=== PATIENT | female | born 1955 | race Caucasian/White ===

== ENCOUNTER 2016-09-16 07:14 | Inpatient (IN) | payer OTHER ==
[~2016-09-16] VITALS: Ht 152.4 cm; Wt 51.0 kg
[2016-09-16] VITALS (15 sets, daily range): BP systolic 98–139; BP diastolic 55–83; PULSE 86–114; RESP 12–19; O2SAT 98–100
[~2016-09-16 07:14] MED LIST: ACET325C PO; CALC200T6 PO; Insulin; LOV60 SUBQ; MAGN400T4 PO; POLY17PO6 PO; POTA20TA16 PO; SODI650T PO; Tramadol PO
--- NOTE | 2016-09-16 08:15 | ED.REPORT ---
HPI-General Illness Date of Service Sep 16, 2016 ED Provider: Patricio Aden MD 61 y/o female with a hx of HTN, DM and GI perforation (with colostomy bag) presents to the ED complaining of full body edema, onset 2 days ago. She had an appointment at [address]Mark Sampson for antibiotic infusion due to blood and liver infection. She has been seeing Dr. Sampson for the past 2 days. Associated sx include myalgia and mild vomiting. Currently, the pain is mostly in her lower extremities. The pt is unable to walk due to her sx and was carried into the hospital by her . She denies diarrhea, chest pain and fever. She has extremely complex medical history which is largely obtained from Dr. Sampson's consultation note from 2 days ago. She presented about a year ago with a broken hip and had a repair done. She ended up with MRSA septicemia, bowel rupture with subsequent colostomy felt to be secondary to constipation. She also had portal vein thrombosis for which she is on low molecular weight heparin. She also has severe inability to move about as reported by her . This along with severe edema has increased dramatically over the past few days. They are also very upset about the care they received at [facility] and are vehemently disinterested in returning there. The pt recently began using insulin and was asked to stop taking BP medications. Nursing Notes Stated Complaint: SWELLING/FINGERS/FEET Chief Complaint: General Complaint Nursing Notes Reviewed: Yes Allergies: Coded Allergies: No Known Drug Allergies (Verified Allergy, Unknown, 09/14/16) Scheduled Calcium Citrate (Calcium Citrate) 200 Mg Tablet 200 MG PO BID Enoxaparin (Lovenox) 60 Mg/0.6 Ml Syringe 60 MG SUBQ BID Magnesium Oxide (Magnesium Oxide) 400 Mg Tablet 400 MG PO TID Potassium Chloride (Potassium Chloride) 20 Meq Tab.er.prt 20 MEQ PO DAILY TAKE WITH FOOD Sodium Bicarbonate (Sodium Bicarbonate) 650 Mg Tablet 650 MG PO TID Scheduled PRN ([Tramadol ]) 50 MG PO PRN For Pain Acetaminophen (Acetaminophen) 325 Mg Capsule 650 MG PO q4 PRN PRN For Pain Miscellaneous Medications ([Insulin ]) Polyethylene Glycol 3350 (Miralax) 17 Gm Powd.pack 17 GM PO General Time Seen by MD: 07:33 Chief Complaint Other (full body edema) Hx Obtained From: Patient Arrived By: Walk-in Sudden in Onset?: Yes Onset Occurred: 2 days ago Symptom Duration: Since onset Location: : Leg left: Leg right Quality: Painful Radiation: : Does not radiate Severity: Current: Moderate Severity: Maximum: Moderate Recent Healthcare: No recent doctor visit Similar Sx Previous: No Past Medical History Past Medical History GI perforation (colostomy bag) Reports: Diabetes mellitus, Hypertension Past Surgical History none reported Smoking History Former Smoker Social History Alcohol Use: Denies alcohol use Drug Use: THC (before bed) Other Social History: Ambulatory Status Independent Review of Systems Reports:unable to walk Full Review of Systems Constitutional: Denies: Fever Cardiovascular: Reports: Edema, Denies: Chest pain GI: Reports: Vomiting, Denies: Diarrhea Musculoskeletal: Reports: Extremity pain (Lower extremities ), Myalgia Complete sys rev & neg: except as marked. Physical Exam Vital Signs Vital Signs Date Time Temp Pulse Resp B/P Pulse Ox O2 Delivery O2 Flow Rate FiO2 09/16/16 10:00 90 13 115/72 09/16/16 09:14 98 17 120/66 Room Air 09/16/16 07:16 36.2 114 14 103/74 100 Room Air Initial VS: Reviewed Head / Eyes: Atraumatic, Normocephalic Neck: Full range of motion Extremities: Vascular intact, Neuro intact, No swelling, No tenderness Skin: Warm, Dry, No cyanosis Neurologic: Alert, Oriented, Nonfocal General/Constitutional: Awake, Alert, Cooperative Appearance / Presentation: Positive: Cachectic PICC line in the right medial upper arm. Respiratory / Chest: Atraumatic, Breath sounds NL, Breath sounds = bilat, No respiratory distress, No rales, No rhonchi, No wheezing Cardiovascular: Heart rate NL, Regular rhythm, No gallop, No rubs Heart Sounds / Murmur: Positive: Murmur present... (II/) Profound peripheral edema in hands and legs up to the thighs. Abdomen: Atraumatic, Soft, Non-tender, No guarding, No rebound Rectum / Perineum: Atraumatic Guaiac negative. Interpretation & Diagnostics Lab Results Interpretation Result Diagram: 09/16/16 1155 09/16/16 0750 Test 09/16/16 07:50 09/16/16 08:51 09/16/16 09:25 White Blood Count 8.7th/mm3 (3.8-10.1) Red Blood Count 2.02mil/mm3 (3.90-5.20) Mean Corpuscular Volume 107.4fL (81-100) Mean Corpuscular Hemoglobin 32.2pg (27.0-35.0) Mean Corpuscular Hemoglobin Concent 30.0% (32.0-37.0) Red Cell Distribution Width 17.6% (12.3-15.4) Platelet Count 545bil/L (150-400) Neutrophils (%) (Auto) 67.6% (40-74) Lymphocytes (%) (Auto) 23.8% (14-46) Monocytes (%) (Auto) 6.9% (4-12) Eosinophils (%) (Auto) 0.3% (0-5) Basophils (%) (Auto) 0.6% (0-3) Hold Purple Top Tube Received (Received) Prothrombin Time 12.2sec (8.1-12.5) Prothromb Time International Ratio 1.14ratio Hold Blue Top Tube Received (Received) Sodium Level 134mEq/L (134-144) Potassium Level 3.7mEq/L (3.5-5.2) Chloride Level 97mEq/L (97-108) Carbon Dioxide Level 16mmol/L (18-29) Blood Urea Nitrogen 10mg/dL (8-27) Creatinine 0.97mg/dL (0.57-1.00) Estimat Glomerular Filtration Rate 83mL/min (>59) Glucose Level 195mg/dL (60-99) Calcium Level 6.2mg/dL (8.5-10.1) Magnesium Level 1.4mg/dL (1.6-2.6) Iron Level 49ug/dL (35-150) Total Iron Binding Capacity 66ug/dL (250-450) Percent Iron Saturation 74%sat (15-50) Unsaturated Iron Binding 17.2ug/dL Total Bilirubin 0.2mg/dL (0.0-1.2) Aspartate Amino Transf (AST/SGOT) 25U/L (0-50) Alanine Aminotransferase (ALT/SGPT) 11U/L (0-32) Alkaline Phosphatase 270U/L (25-165) Troponin T 0.077ug/L (0.0-0.011) Pro-B-Type Natriuretic Peptide 4332pg/mL (0-287) Total Protein 4.3g/dL (6.4-8.4) Albumin 1.3g/dL (3.4-5.0) Procalcitonin 18.34ng/mL (0.00-0.08) Hold [place] Top Tube Received (Received) Hold [place] Top Tube Received (Received) Digoxin Level 0.3nG/mL (0.9-2.0) Urine Color Yellow (YELLOW) Urine Appearance Hazy (CLEAR,HAZY) Urine pH 6.5 (5.0-8.0) Urine Specific [place] 1.010 (1.003-1.035) Urine Protein 30mg/dL (NEG,TRACE) Urine Glucose (UA) Negativemg/dL (NEGATIVE) Urine Ketones Negativemg/dL (NEGATIVE) Urine Occult Blood Negative (NEGATIVE) Urine Nitrite Negative (NEGATIVE) Urine Bilirubin Negative (NEGATIVE) Urine Urobilinogen Normalmg/dL (NORMAL) Urine Leukocyte Esterase Small (NEGATIVE) Urine RBC 0-2/hpf (0-2) Urine WBC 11-50/hpf (0-5) Urine Epithelial Cells Occasional/hpf (NONE-MOD) Urine Crystals None seen (NONE SEEN) Urine Bacteria None/hpf (NONE-FEW) Urine Hyaline Casts None/lpf (NONE) Urine Granular Casts None seen (NONE SEEN) Urine Waxy Casts None seen (NONE SEEN) Urine Red Blood Cell Casts None seen (NONE SEEN) Urine White Blood Cell Casts None seen (NONE SEEN) Urine Mucus None seen (None Seen) Urine Trichomonas None seen (NONE SEEN) Urine Yeast Moderate (NONE SEEN) Urinalysis Comment None Urine Culture Reflexed Indicated Hold Red Top Tube Received (Received) ECG Interpretation ECG Interpretation: NSR. Jackelyn 97. Low voltage, extremity and recordial leads Prolonged QT interval Time: 08:38 Interpreted by: ED physician X-Ray Chest Interpretation Chest Xray Interpretation: IMPRESSION: 1. Continued small right-sided pleural effusion and mild atelectasis. Superimposed pneumonia is difficult to exclude. 2. Unchanged right-sided PICC line catheter. Dictated by: Brendan Marley M.D. on 09/16/2016 at 8:09 Approved by: Brendan Marley M.D. on 09/16/2016 at 8:12 View: Portable, 1 view Interpretation / Wet Read by: Interpret - Radiologist Re-Eval/Medical Decision Time of Eval: 09:28 Re-Evaluation/Progress Note: Rechecked pt. Discussed lab results, imaging results, diagnosis and plan to admit. The pt understands and agrees with the plan. All questions answered. Consultation #1: Referral / Consult Name: Gonzalez Sampson MD Call Returned at: 09:26 Note: Dr. Sampson suggested checking the details in his note on the pt. Consultation #2: Referral / Consult Name: Mariya Mock DO Consulted With: Hospitalist Call Returned at: 10:10 [place] Worker: Will see patient, Agrees with eval, Agrees with plan, Accepts admit Counseled Regarding: Diagnosis, Lab results, Need for admission Discharge & Departure Primary Impression: Severe anemia Additional Impressions: Anasarca Hypotension Disposition: ADMITTED TO HOSPITAL Discharge Condition All VS Reviewed: Yes Referrals: [facility] Gonzalez Sampson MD Scribe Attestation Portions of this note were transcribed by Joellen Mathias. I, , personally performed the history, physical exam and medical decision-making;I reviewed and confirmed the accuracy of the information in the transcribed note. Signed by Tiburcio Montoya. 09/16/16 10:11 copies to: [facility]; Gonzalez Sampson MD, Kirk H MD Sep 16, 2016 08:15 Joellen Mathias Sep 16, 2016 08:31
[2016-09-16] MEDS ORDERED: DAPTOmycin Inj 500 MG in 0.9% Sodium Chloride 50 ML IV ONE (08:30)
[2016-09-16] MEDS ORDERED: Ertapenem Inj 1,000 MG in 0.9% Sodium Chloride 50 ML IV ONE (08:30)
[2016-09-16 08:37] LABS: BASOPHILS % (AUTO) 0.6 % (0-3); EOSINOPHILS % (AUTO) 0.3 % (0-5); MONOCYTES % (AUTO) 6.9 % (4-12); Mean Corpuscular Hemoglobin 32.2 pg (27.0-35.0); Mean Corpuscular Volume 107.4 fL (81-100); NEUTROPHILS % (AUTO) 67.6 % (40-74); Platelet Count 545 bil/L (150-400)
[2016-09-16 08:39] LABS: INR 1.14 ratio
[2016-09-16 09:09] LABS: Magnesium 1.4 mg/dL (1.6-2.6)
[2016-09-16 09:12] LABS: TROPONIN T 0.077 ug/L (0.0-0.011)
--- NOTE | 2016-09-16 09:13 | DRSVH ---
PROCEDURE: X-RAY CHEST ONE VIEW, PORTABLE ([id number]) INDICATIONS: weakness TECHNIQUE: One view of the chest was acquired. COMPARISON: [facility], CR, XR CHEST 1VW (PORTABLE), 09/14/2016, 11:25. FINDINGS: Surgical changes and devices: There is a right-sided PICC line catheter identified with tip overlying the mid superior vena cava. Lungs and pleura: Bibasilar opacity is identified at results in blunting of the costophrenic angle an d partially obscures the diaphragm. The diaphragm probably is elevated. This appearance is similar to the prior exam. Otherwise, the aeration of the lungs is unchanged. There is no pneumothorax. Mediastinum: Mediastinal contours appear normal. Heart size is normal. Bones and chest wall: No suspicious bony lesions. Overlying soft tissues appear unremarkable. IMPRESSION: 1. Continued small right-sided pleural effusion and mild atelectasis. Superimposed pneumonia is dif ficult to exclude. 2. Unchanged right-sided PICC line catheter. Dictated by: Brendan Marley M.D. on 09/16/2016 at 8:09 Approved by: Brendan Marley M.D. on 09/16/2016 at 8:12
[2016-09-16 09:21] LABS: APPEARANCE,URINE HAZY (CLEAR,HAZY); COLOR,URINE YELLOW (YELLOW); OCCULT BLOOD,URINE NEGATIVE (NEGATIVE); PH,URINE 6.5 (5.0-8.0); UROBILINOGEN,URINE NORMAL (NORMAL)
[2016-09-16 09:22] LABS: YEAST,URINE MODERATE (NONE SEEN)
[2016-09-16] MEDS ORDERED: Alum-Mag Hydrox-Simeth 30 mL Suspension PO PRN ×2 (11:05→11:40)
[2016-09-16] MEDS ORDERED: Ondansetron 2 mg/mL 2 mL Inj IVPUSH PRN (11:05)
[2016-09-16] MEDS ORDERED: Polyethylene Glycol (PEG) 17 Gm Powder PO PRN (11:40)
[2016-09-16] MEDS ORDERED: Albumin 25% 50 GM in IV Premix 1 EACH IV ONE (11:40)
[2016-09-16] MEDS ORDERED: Magnesium Sulf 4 Gm/100 mL H2O 4 GM in IV Premix 1 EACH IV ONE (11:45)
[2016-09-16] MEDS ORDERED: Calcium GLUCO 10% (Gm) Inj 1 GM in 0.9% Sodium Chloride 50 ML IV ONE (11:45)
[2016-09-16 12:03] LABS: Unsaturated Iron Binding 17.2 ug/dL
[2016-09-16] MEDS ORDERED: Sodium Chloride LOK Flush 10 mL Syringe IVFLUSH PRN (12:20)
--- NOTE | 2016-09-16 12:30 | NUR ---
Admission note Report received from ED RN. Patient arrived to room 2030 via stretcher. Pt oriented to room and use of call light. Policies and procedure explained. Patient verbalized understanding. Patient alert, oriented to person, place and time. Sheldon patent draining clear yellow urine. Assessment performed, vitals charted by ELECTRICIAN SECOND. Awaiting PRBC at this time for blood transfusion. Ongoing care.
--- NOTE | 2016-09-16 13:04 | PCM.HPMED ---
Subjective Date of Service Sep 16, 2016 Primary Provider: Admitting Physician: Mariya Mock DO Primary Care Physician: Song Attending Physician: Mariya Mock DO Chief Complaint: Weakness and anasarca History of Present Illness: 61-year-old female who is recently discharged from [facility] 2 days ago presents to the emergency department due to increased swelling in her lower extremities and worsening weakness has been persistent since discharge. See medical history for further information. Patient has an extremely complicated course as she has had 2 stays at [facility]. Initially started in the fall of 2015 when the patient had a fall fractured her right hip. She is not discharged and then readmitted in March after she suffered colonic rupture second obstipation likely due from pain management. Patient underwent colectomy and new ostomy and remained in the hospital for 3 weeks including a prolonged stay in the ICU on a ventilator. At that time she required TPN and developed acute kidney injury. In August the patient again presented to [facility] with increased abdominal pain and vomiting was found to have an MRSA history male with sepsis. She underwent complete workup including SANDI which was negative for valvular involvement, however it was noted that she has intrahepatic abscess is likely due to the MRSA as well as questionable pancreatic abscesses. 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 Since this admission she has been on Lovenox. That time she was also diagnosed with a left 6 cm renal mass which has yet to be worked up. On last discharge the patient was able to stand and now complains that she is unable to lift her legs against gravity. Her swelling has increased bilaterally but she does not feel that her abdomen is involved. She denies ongoing fever, chills, chest pain, dizziness, nausea, vomiting, dysuria, or changes in bowel habits. She has had ongoing shortness of breath with exertion. She is able to reportedly lay flat. Abdominal pain is not a complaint today. Patient also denies hematochezia, melena or hematemesis. In the ED the patient was found to be severely anemic at 6.5 and repeat 4 hours later resulted at 5.8. Patient's CBC shows a macrocytic anemia with thrombocytosis. Patient's CMP revealed bicarbonate of 16, glucose 195,, corrected calcium above 8, magnesium 1.4, alkaline phosphatase elevated at 270, [place] elevated at 18.4, and albumin 1.3. Patient also had a lactic acid of 4.0 on admit. Repeat without fluids reveal a lactic acid 3.2 Review of Systems: Complete review of systems performed; pertinent positives and negatives per history of present illness Allergies Coded Allergies: No Known Drug Allergies (Verified Allergy, Unknown, 09/14/16) Home Medications Calcium citrate 200 mg tablets by mouth twice a day Lovenox 60 mg syringe subcutaneous twice a day Magnesium oxide 400 mg tablet by mouth 3 times a day Potassium chloride 20 mEq by mouth daily Sodium bicarbonate 650 mg by mouth 3 times a day Ertapenem daily through October 08 Daptomycin daily through October 08 PMH Fracture right hip Osteoporosis Hypertension Renal tubular acidosis Pancreatic pseudocyst Chronic renal insufficiency Rupture colon second to obstipation with colectomy and ostomy -Prolonged ICU stay in 3 week admission to [facility] -MRSA sepsis with negative SANDI -Liver and questionable pancreatic abscesses second MRSA versus polymicrobial bacteremia -Portal vein thrombosis, nonocclusive -Portal's clinic thrombosis, nonocclusive -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 -6 cm left renal mass, unknown etiology although questionable for malignancy -History of stress cardiomyopathy with improvement of LV function Surgical History Colectomy with ostomy Right hip pinning Family History Patient is adopted Social History Hx Alcohol Use: Yes (NONE SINCE ; 3 DRINKS A DAY PRIOR) Hx Substance Use: Yes (MARIJUANA TO SLEEP) Smoking Status: Former Smoker Living Arrangement: with Family Exam Vital Signs Vital Sign - Last Date Time Temp Pulse Resp B/P Pulse Ox O2 Delivery O2 Flow Rate FiO2 09/16/16 12:28 36.6 86 17 127/80 100 Room Air Exam General: Appears chronically ill HEENT: PERRLA, EOMI, no scleral injection, no conjunctival pallor, membranes dry Lymph: No lymphadenopathy Cardiac: Regular rate and rhythm, decreased auscultation, no murmurs Respiratory: CTA bilaterally. Abdomen: Secondary intention ulcer healing, ostomy is active and appropriate Extremities: Significant pitting edema up to the sacrum (anasarca); lower extremity pulses are not palpable but limbs warm; radial pulses intact Psychiatric: Appropriate mood and affect Neuro: Sensation is intact throughout, significant weakness and lower extremities, CN II through XII intact Skin: Taut and the lower extremities, thin throughout Lab and Diagnostics Result Diagram: 09/16/16 1155 09/16/16 0750 X-Rays, CTs and MRIs Chest x-ray IMPRESSION: 1. Continued small right-sided pleural effusion and mild atelectasis. Superimposed pneumonia is difficult to exclude. 2. Unchanged right-sided PICC line catheter. Dictated by: Brendan Marley M.D. on 09/16/2016 at 8:09 12-lead ECG EKG is low-voltage, rate in the 80s, QTC is 665 Assessment & Plan 61-year-old female with extremely complicated course who presents emergency department with severe anemia of 6.5 with no obvious source of bleeding, as well as severe nutrient deficiency and lactic acidosis. Patient was discharged on Lovenox but did not refill (3 days off lovenox) Acute blood loss anemia with macrocytosis and a mild elevated troponin; present admission; ongoing -Patient was discharged 2 days ago presenting with a macrocytic anemia with hemoglobin of 6.5; elevated troponin likely due to recent tachycardia with inadequate oxygen delivery -Unknown source at this time with a questionable GI bleed; however, patient off Lovenox for 3 days; hold lovenox at this point -Reticulocyte count was 7.8 indicating that she is responding to this anemia, ruling out bone marrow suppression -Bilirubin normal, will check haptoglobin and smear to rule out hemolysis -Iron studies pending -Start patient on Protonix 40 mg twice a day -Ordered blood transfusion; blood had to be shipped up from [place] -Hemoccult -Will consult GI if trend continues Anasarca secondary to protein deficiency/malnutrition; present on admission; ongoing -Patient presents with edema up to her sacrum with sparing of the abdomen; albumin of 1.3 on admission -With sever hx of clotting, worrisome for bilateral DVT -Plans currently to await blood transfusion -50 mg albumin IV; 25 mg IV 4 times a day -Diuresis after patient has received blood and is more stable Subacute liver abscesses; present on admission; ongoing -patient had hepatic abscesses following MRSA bacteremia. -Dr. Sampson is treating these with daptomycin and ertapenem outpatient infusion -Patient's procalcitonin still around 18 -Will consult Dr. Sampson -Continue IV antibiotics per ID Left renal mass with reported capsule invasion; present on admission; ongoing -Diagnosed at [facility], however, unable to find biopsy results -Patient also had numerous thromboses and was placed on Lovenox, likely due to this mass -US ordered for assessment here -Consulted urology and heme; appreciate their recommendations -More information in records from [facility] of portal, mesenteric, and splenic vein thrombosis -Will continue Lovenox for the current time due to the severity of her prior thrombosis -Prothrombotic state likely second to renal cell carcinoma of the kidney -Consulting Heme/onc Anion gap acidosis with elevated lactate; present admission; ongoing -Anion gap of 22 on admission with lactic acid of 4; patient also has a RTA -Awaiting blood transfusions -Following transfusions will assess fluid balance -Recheck tomorrow Hypomagnesemia; present admission; ongoing -Replacement with 4 g of mag sulfate -Check an a.m. Right Pleural effusion; present admission; ongoing -Etiology unclear at this time; no known recent history of pneumonia; does have hepatic abscesses -Ultrasound assessment ordered for possible thoracentesis -Repeat CXR tomorrow morning Diabetes type II; present admission; ongoing -Patient does not appear to be on any medications outpatient -A1c checked -Patient placed on low correctional; we will reevaluate and had basal tomorrow Chronic Severe protein-calorie Malnutrition; present admission; ongoing -Patient has been severely ill for 9 months at one point was on TPN -BMI > 16, however patient with anasarca; obvious underlying severe nutritional deficiency -Dietitian consult requested -Continue albumin infusion Healing abdominal wound from colectomy; present on admission; ongoing -Allowed healing through secondary from colectomy in March 2016 -Wound consult ordered Disposition: Patient is being admitted to the inpatient service with expected length of stay greater than 2 midnights due to severity of presentation, duration of treatment, and risk of adverse events Pain Evaluation: Adequate Pain Control VTE Prophylaxis Indicated: VTE on Admission Resuscitation Status: CPR: Attempt Resuscitation Attending Statement The patient was seen and examined together with Dr. Walden on 09/16/16 and I have added additional information to the note above. Jude Walden DO Sep 16, 2016 13:04 Mariya Mock DO Sep 19, 2016 18:20
[2016-09-16] MEDS ORDERED: Glucose 40% Oral Gel 15 Gm Tube PO PRN (13:55)
[2016-09-16] MEDS ORDERED: Albumin 25% 25 GM in IV Premix 1 EACH IV SCH (14:30)
--- NOTE | 2016-09-16 14:46 | PROG NOTE ---
[address] [address] PROGRESS NOTE PATIENT: HUNG JAMES : 1955 MR#: [id number] ADMIT: 09/16/2016 JOB ID: [id number] DATE: 09/16/16 INFECTIOUS DISEASE FOLLOW UP NOTE: REASON FOR FOLLOWUP HERE IN THE HOSPITAL: Progressive lower extremity edema, progressive weakness and malaise. INTERVAL HISTORY: Recall that this is a complex patient who I accepted in transfer as outpatient from [facility] in [place] so as to facilitate home IV antibiotics. The patient has an extremely complex medical history which I summarized in a long note that is available on [employer] from September 14. The short summary would be that this is a 61-year-old woman with a history of alcohol abuse and multiple medical problems, who suffered a ruptured colon in [place] in March and spent a long time in the hospital at [place] with ventilator dependent respiratory failure, renal injury and the need for multiple procedures. She was also found during this long admission to have a left renal mass which is probably malignant but she has declined evaluation of it beyond that. She also has decubitus ulcers and renal insufficiency. She is known to have renal tubular acidosis at baseline, which probably explains her anabolic acidosis noted on admission. 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 At the time I saw her two days ago for the first time in the [facility], the plan was to continue her on daptomycin and ertapenem as empiric therapy for these microabscesses through at least October 08 with weekly followup. She was also on Lovenox for the multiple intra-abdominal venous thromboses and I renewed the Lovenox at least short-term in the hopes that she would soon be able to find a primary care doctor in the [facility] where she resides who could take over her anticoagulation. Our plans were a bit inchoate when I saw her on Tuesday as she really has not lived in this area nor does she have any medical assets in this area but she was quite adamant that she wanted to transition from her care in [place] and move her care and her home north to the [facility]. Over the past 48 hours, the patient has become weaker and weaker according to the patient and her . Today, she was hardly able to even stand much less make it to the toilet and just collapsed. Because of this progressive weakness, he brought her to the ED where I was contacted and the decision was taken to admit the patient here. She declined any transfer attempt to [place] where she is well known. Obviously has a wide variety of consultants familiar with the case now and she states she has not had any fevers or chills in the last 48 hours. No significant change in mentation or headache. She has had a little bit of shortness of breath with exertion but not much. No notable abdominal pain. No bleeding from her nose, rectum or vagina. She notes she has had progressive lower extremity weakness as well as edema over the past several days. PHYSICAL EXAMINATION: Reveals an afebrile woman. Temp 36.6, pulse 87, respiratory rate 17, blood pressure 127/80, saturating 100% on room air this afternoon. She is awake and alert. Appears to be in mild distress. Examination of the sinuses reveals no notable abnormalities. The oral cavity is unremarkable. Conjunctivae are pale. Lungs relatively clear. Cardiac tones with systolic murmur as was noted previously. The abdomen is soft and nontender today. The abdominal wound which I noted to be about 4 x 2 cm on Tuesday, the 14 of September, has not changed. She has a colostomy, of course, secondary to her colon perf from back in March. Sheldon catheter was installed in the ED and that is new as she did not have one when I saw her in the outpatient arena. Her lower extremity edema is considerable, about 2+ to 3+ bilaterally and seems a bit worse than when I last saw her. Her extremities are rather pale-appearing but not ischemic per se. Her left arm has some beltrán on it which are well healed. Her right arm is bigger than the left and has a PICC line in it suggesting the possibility of a PICC associated clot. LABORATORIES: Include white count 8700, hematocrit 20. Her hematocrit was at 26 just two days ago suggesting a major blood loss somewhere. Lactic acid is 3.2. Urinalysis 11-50 white cells. Urine culture is pending. Chest x-ray is basically clear with some very minimal right-sided atelectasis perhaps. IMPRESSION: This is an incredibly complicated case of a patient with multiple underlying medical issues as outlined above. At this point, her main problem is weakness, electrolyte disorders and worsening lower extremity edema as well as a progressive drop in hematocrit. From an Infectious Disease point of view, I think we should continue with her daptomycin and ertapenem as was previously planned through October 08. Additional things to consider here would be wound management consult as well as Urology to evaluate her renal mass and an ultrasound of the right upper extremity to rule out a clot. RECOMMENDATIONS: 1. Daptomycin 500 once a day to continue through October 08. 2. Ertapenem 1 g once a day to continue through October 08. 3. An ultrasound right upper extremity, rule out clot. 4. I would consult wound management regarding the abdominal wound, Nephrology regarding what seems to be renal tubular acidosis and Urology for the renal mass. 5. The optimal management of the renal and mesenteric thrombosis use is unclear to me and I wonder whether Gastrointestinal and/or Heme-Onc should be involved for this. 6. This patient will need a primary care doctor and establish followup before she can be safely discharged as she has no health care providers really [facility] at this point.
[2016-09-16] MEDS ORDERED: PANT40TA3 PO (15:38)
[2016-09-16] MEDS ORDERED: ONDA-53 PO (15:44)
[2016-09-16] MEDS ORDERED: TRAM50TA2 PO (15:44)
[2016-09-16] MEDS ORDERED: MIRT15TA6 PO (15:45)
[2016-09-16] MEDS ORDERED: INSU100I SC (15:47)
--- NOTE | 2016-09-16 16:14 | NUR ---
IV Access unable to find vein large enough to place 2nd picc on left arm, 2 attempts made on a peripheral line but those were unsuccessful, Dr Walden notified
[2016-09-16] MEDS ORDERED: Heparin 5,000 Unit/mL Inj SUBQ SCH (16:30)
[2016-09-16] MEDS ORDERED: DAPT500V2 IV (16:40)
[2016-09-16] MEDS ORDERED: ERTA1VIA2 IV (16:40)
[2016-09-16] MEDS ORDERED: MULT-432 PO (16:44)
[2016-09-16] MEDS ORDERED: OMEP20CA11 PO (16:44)
[2016-09-16] MEDS ORDERED: SODI650T PO (16:44)
--- NOTE | 2016-09-16 16:44 | DRSVH ---
PROCEDURE: US VENOUS ARM DUPLEX, BILATERAL INDICATIONS: thrombus around R PICC; left assessment? TECHNIQUE: Real-time imaging, as well as color and pulse Doppler interrogation, was performed of both upper extr emity deep veins from the inferior neck to the antecubital fossa. COMPARISON: None. FINDINGS: Within the right arm, there is venous thrombosis present involving the axillary and one of the 2 brachial veins which is occlusive. Normal patency of the subclavian vein. Within the left arm, venous thrombosis is present within one of the two paired basilic veins. The ce phalic vein is not visualized. Normal patency of the subclavian vein. IMPRESSION: Occlusive thrombus present within the right and left upper extremities. Marciano Walden telephoned with the results by the paving foreman at 1624 hrs. 09/16/2016. Dictated by: Ben Everett [facility] Interpreted: Rody Welch MD on 09/16/2016 at 16:40 Transcribed by: MILY on 09/16/2016 at 16:44 Approved by: Rody Welch MD, PhD on 09/16/2016 at 16:46
--- NOTE | 2016-09-16 17:06 | DRSVH ---
PROCEDURE: US ABDOMEN INDICATIONS: pancreatic abscess/hepatic abscess/portal vein TECHNIQUE: Real-time scanning was performed of the abdominal and retroperitoneal organs, with image documentatio n. COMPARISON: None. FINDINGS: Liver length: 15.57 cm Gallbladder Wall Thickness: 3.80 mm CHD: 2.90 mm CBD: 4.10 mm Spleen length: 9.60 cm Right kidney length: 9.89 cm Left kidney length: 7.84 cm Aorta(Proximal): 1.96 cm Aorta(Mid): 1.85 cm Aorta(Distal): 1.76 cm Liver: Liver is diffusely increased in echogenicity. No focal hepatic abnormalities identified. No rmal hepatic size. Gallbladder: Gallbladder sludge is present gallbladder wall is thickened measuring 3.8 mm. Biliary ducts: Intrahepatic bile ducts are non-dilated. Extrahepatic bile duct caliber is normal. Normal is 6-7 mm or less in diameter, or 10 mm or less post-cholecystectomy. Pancreas: Visualized portions of the pancreas are sonographically normal. Spleen: Spleen is normal in size and homogeneous in echotexture. Kidneys: No hydronephrosis or nephrolithiasis. Solid, heterogeneous left lateral kidney mass is pre sent measuring roughly 47 mm. There is left renal cortical thinning. Aorta: Visualized aorta is normal in caliber at less than 3 cm. Iliacs: Proximal common iliac arteries are normal in caliber at less than 2.5 cm. IVC: Intrahepatic inferior vena cava is patent. Miscellaneous: No free abdominal fluid. Small right pleural effusion. IMPRESSION: 1. Increased hepatic echogenicity noted likely related to fatty infiltration of the liver but other s ources of hepatocellular disease cannot be excluded. Recommend clinical correlation. 2. Solid left renal mass suspicious for underlying neoplasm. Recommend renal protocol CT for further assessment. 3. Small right pleural effusion. 4. Gallbladder sludge with mild thickened gallbladder wall. Developing cholecystitis cannot be exclu ded. Correlate clinically. Dictated by: Ben Everett [facility]RA Interpreted: Rody Welch MD on 09/16/2016 at 17:01 Transcribed by: MILY on 09/16/2016 at 17:05 Approved by: Rody Welch MD, PhD on 09/16/2016 at 21:49
--- NOTE | 2016-09-16 17:19 | DRSVH ---
PROCEDURE: US VENOUS LEG DUPLEX BILATERAL INDICATIONS: DVT ; include iliacs and lower IVC TECHNIQUE: Real-time imaging, as well as color and pulse Doppler interrogation, were performed of the deep veins of both legs from the inguinal ligament to the popliteal fossa. COMPARISON: None. FINDINGS: The deep veins are normally compressible, and free of intraluminal thrombus. Color and pu lse Doppler demonstrate normal phasic intravascular flow. There is normal augmentation response to d istal compression maneuver. IMPRESSION: No DVT found bilaterally. Dictated by: Bryant Ramsey M.D. on 09/16/2016 at 17:17 Approved by: Bryant Ramsey M.D. on 09/16/2016 at 17:18
--- NOTE | 2016-09-16 17:27 | NUR ---
Admit nurse note Most of admission assessment is completed at the bedside with 's assistance. does most of the talking for pt. Her complex medical history was obtained from [facility] records. states they moved north to get a second opinion about pt. They also state they have opted out of cancer treatment or diagnosis until pt.'s health is more stable. states they have not given any insulin at home because they couldn't figure out the glucometer. MD notified and requested to order diabetes education. Pt. placed on contact isolation for hx MRSA sepsis this year. Pt. to be asked about safety at home when she is alone in the room. Advance directives information provided to pt. and . Med rec completed based on med bottles, erx and list from [facility]. These are verified with and patient. states he will bring all the pill bottles back home manuela. Report given to Emily Yip and psychiatric social worker.
--- NOTE | 2016-09-16 17:35 | PCM.ADCARE ---
Advance Care Planning Note Plan: Purpose of encounter: Goals of care Parties in attendance: The patient and her Karthik Diagnosis: Acute blood loss anemia Anasarca Renal cell carcinoma Renal tubular acidosis Metabolic anion gap acidosis Type II diabetes Wound secondary to post colectomy procedure Decisional capacity: Good Plan: The patient is aware of the current diagnosis and would like to continue to be full code. The patient and her both understand that this means for chest compressions, intubation, pressors, and all measures involved with CPR. CODE STATUS: Full code Time spent with advanced care planning: Greater than 16 minutes Mariya Mock DO Sep 16, 2016 17:35
[2016-09-16] MEDS ORDERED: 0.9% Sodium Chloride 250 ML ONE (18:24)
[2016-09-16] MEDS ORDERED: Furosemide 10 mg/mL 4 mL Inj IVPUSH ONE (19:20)
--- NOTE | 2016-09-16 19:45 | DRSVH ---
PROCEDURE: X-RAY CHEST ONE VIEW, PORTABLE ([id number]) INDICATIONS: central line TECHNIQUE: One view of the chest was acquired. COMPARISON: None. FINDINGS: Surgical changes and devices: New left internal jugular central line from left-sided approach crosse s the midline and enters into the distal SVC. Additionally, there is a PICC line previously present from right sided approach extending to the middle third or distal third of the SVC immediately adjace nt. Lungs and pleura: No pleural effusions or pneumothorax. Lungs are clear except for slight stranding in each lung base, previously present. Mediastinum: Mediastinal contours appear normal. Heart size is normal. Bones and chest wall: No suspicious bony lesions. Overlying soft tissues appear normal. IMPRESSION: No acute disease. The central line is in normal position without left-sided pneumothora x. A right PICC line is in stable normal position. Dictated by: Bryant Ramsey M.D. on 09/16/2016 at 19:38 Approved by: Bryant Ramsey M.D. on 09/16/2016 at 19:43
--- NOTE | 2016-09-16 20:00 | NUR ---
Transfer of care PRBC not available till 1829 however waited for insertion of central line for transfusion. Report given to oncoming RN. First unit of blood transfusion in progress at this time.
[2016-09-16] MEDS: Insulin LISPRO 300 Unit/3 mL Inj SUBQ SCH ×2 (20:06→20:07)
[2016-09-16] MEDS: Pantoprazole 4 mg/mL 10 mL Inj IVPUSH SCH (20:31)
--- NOTE | 2016-09-16 20:33 | CONS ---
[address] [address] CONSULTATION REPORT PATIENT: HUNG JAMES : 1955 MR#: [id number] ADMIT: 09/16/2016 JOB ID: [id number] DATE OF SERVICE: 09/16/2016 REASON FOR CONSULTATION: 1. Severe anemia. 2. Solid renal mass, highly suspect renal cell carcinoma. 3. Multiple intra-abdominal and upper extremity venous thromboses. REQUESTING PROVIDER: Jude Elder D.O. HISTORY OF PRESENT ILLNESS: The patient is an unfortunate, 61-year-old woman with a very complex recent medical history. This is delineated very well in Dr. Gonzalez Sampson's consult report from September 14 and also progress report from today. In summary, this patient initially developed right hip fracture. In late November 2015 in the context of osteoporosis and underwent arthroplasty at [facility]. Later on April 02, 2016, apparently she developed spontaneous colonic obstruction, reported in the setting of obstipation, and was readmitted at [facility], this time for a lengthy 3+ month admission. She was admitted to ICU for six weeks and was on ventilator support. Eventually, she was discharged but soon was readmitted in August with increasing abdominal pain, nausea, vomiting, dehydration and sepsis. During this admission, she was diagnosed with MRSA sepsis, although there was no evidence of endocarditis. There were multiple microabscesses involving the liver and elsewhere. 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 Also, a 6 cm left renal solid mass was discovered, extending into the left renal sinus. She had transient cardiomyopathy in the setting of sepsis, which subsequently improved. She was eventually discharged, and Dr. Sampson was contacted to continue her IV antibiotics with daptomycin and ertapenem. She was discharged from [facility] on September 13, and readmitted to this hospital on September 14, for her IV antibiotic infusions. This morning, her found her profoundly weak. She was not able to stand or lift her foot up. She has developed severe anasarca in the setting of severe hypoalbuminemia. She was brought back to [facility] ED and has been readmitted. Hemoglobin is 6.5 as of this morning, subsequently dropped further to 5.8 at noontime. Two days ago, it was 8.1. She was found in severe anasarca, in the setting of albumin 1.3. A PICC line was ordered, but ultrasound shows bilateral upper extremity venous thrombosis. A central venous catheter was just placed by anesthesiologist. LABORATORY DATA: On admission today, WBC count 8700 with a normal differential. Hemoglobin 5.8, MCV 107, platelet count 545,000. Retic count is 7.8%. Albumin is profoundly low at 1.3. ProBNP is markedly high at 4300. Troponin T is positive. Bilirubin is normal, but alkaline phosphatase is elevated. Procalcitonin is high at 18.3. Creatinine is 0.97. Lactic acid is high at 4.0, but this patient is said to have chronic metabolic acidosis. PAST MEDICAL HISTORY: 1. Chronic alcoholism. She used to drink heavily until November 2015. Since then, she has had only three drinks. The last alcoholic beverage was about a month ago. 2. Probable chronic pancreatitis in the setting of excessive alcohol intake. During recent admission, she had pseudocysts and possible abscesses at the pancreas. 3. Osteoporosis. 4. Diabetes mellitus type 2. 5. Hypertension. 6. Right hip fracture in November 2015 with hip replacement. 7. Colonic rupture in March 2016 with subsequent peritonitis and sepsis syndrome. She has a colostomy in place. PHYSICAL EXAMINATION: Currently, she appears very deconditioned and pale. She appears to have had chronic anemia for a long time. She is lethargic but oriented x3. HEENT: Cachexia and calor. Cardiac: Regular. Abdomen: Soft and nondistended but ascites and anasarca. There is a midline chronic abdominal wound and colostomy in the left hemiabdomen. Lower extremities with edema. IMPRESSION/RECOMMENDATIONS: 1. Severe anemia. The etiology is most likely multifactorial related to blood loss, sepsis and prolonged systemic inflammatory response. I have added additional labs to the ones already drawn. I put order for ferritin, LDH and direct Ryland test to be done tomorrow morning. Transferrin saturation is already checked and is high. B12 and folate are pending. Haptoglobin is pending. I do not think further workup beyond these tests is necessary. I agree with blood transfusion. I would transfuse with 1 unit per day if hemoglobin is 6.9 or less. Check stool from the colostomy bag for guaiac x3 (I will place an order for this). 2. Multiple venous thromboses involving intra-abdominal and upper extremity veins. This is occurring in the setting of prolonged sepsis due to systemic invasive MRSA infection. Renal malignancy may also play a role. 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 Will check ATIII antigen, lupus anticoagulant and anticardiolipin antibodies, with tomorrow am labs. Will also place order for 24-hr urine protein and creatinine. No need to look for genetic thrombophilia causes. 3. Agree with holding off on heparin drip tonight given severe anemia, but recommend to start tomorrow. Prefer heparin drip over Lovenox for this patient, until stable. 3. Left renal mass, highly suspect primary renal cell carcinoma. This patient is not a candidate for nephrectomy, and this issue would not be priority at this point. We need to download previous CT scans from [facility] into [employer] for review. I will follow along on a daily basis. STUART
--- NOTE | 2016-09-16 21:52 | DRSVH ---
PROCEDURE: US CHEST/PLEURAL SONOGRAM INDICATIONS: pancreatic abscess/hepatic abscess/portal vein COMPARISON: None. FINDINGS: Small mobile right pleural effusion is present. IMPRESSION: Small right pleural effusion. Dictated by: Ben AVILEZ Interpreted: Rody Welch MD on 09/16/2016 at 17:05 Approved by: Rody Welch MD, PhD on 09/16/2016 at 21:50
[2016-09-16 22:35] LABS: TROPONIN T 0.096 ug/L (0.0-0.011)
[2016-09-16] MEDS: Albumin 25% 25 GM in IV Premix 1 EACH IV SCH (22:54)
--- NOTE | 2016-09-16 23:06 | NUR ---
Blood administration/Transfer to CCU 1999 - Patient transferred to CCU at 2000, A&Ox3, c/o generalized pain, 1st unit PRBC's infusing, at bedside, vitals stable and afebrile, will continue to monitor. 2300 - Patient resting and lightly sleeping since Melatonin 1mg given, 2nd unit PRBC's started, patient stated pain is tolerable and is 3/10, no distress noted. Addendum: 09/17/16 at 0404 by ZEYAD FRIAS RN 0400 - AM labs drawn, Tylenol given for pain and good relief of body aches within 1 hour. Repositioning Q1-2H per patient request, 2 units PRBC's given and AM Hgb 7.1, no needs at this time, resting and calm, 24 urine on ICE started at 2145 on 09/16/16, no distress noted, will continue to monitor.
[2016-09-17] VITALS (13 sets, daily range): BP systolic 95–141; BP diastolic 55–74; PULSE 78–97; RESP 15–22; O2SAT 95–100
--- NOTE | 2016-09-17 01:23 | PROCED ---
[address] [address] PROCEDURE NOTE PATIENT: HUNG JAMES : 1955 MR#: [id number] ADMIT: 09/16/2016 JOB ID: [id number] DATE OF SERVICE: 09/16/2016 PREOPERATIVE DIAGNOSIS(ES): POSTOPERATIVE DIAGNOSIS(ES): PROCEDURE: Central line placement. SURGEON: Jerrod Mo MD PROCEDURE IN DETAIL: I was called by the [facility] team senior leader for central line placement in a patient with severe anemia and hypotension with no IV access. Upon entering the room, the patient is conversant, resting comfortably in bed with her at her side. Consent was signed. The patient was placed on monitor and in the Trendelenburg position. The patient was sterilely prepped and draped. Lidocaine 1% 3 mL was used as local anesthetic. Under ultrasound guidance and a sterile Seldinger technique, a [employer] central venous triple-lumen catheter was placed, 7-Yoruba, 20 cm. The patient tolerated the procedure well. There was good hemostasis. A sterile dressing was applied by IV therapy. Chest x-ray was available in the room upon completion of central line placement, which will be reviewed shortly.
[2016-09-17 03:35] LABS: EOSINOPHILS % (AUTO) 0.8 % (0-5); MONOCYTES % (AUTO) 10.7 % (4-12); Mean Corpuscular Hemoglobin 31.3 pg (27.0-35.0); Mean Corpuscular Volume 97.8 fL (81-100); NEUTROPHILS % (AUTO) 51.8 % (40-74); Platelet Count 272 bil/L (150-400)
[2016-09-17] MEDS: Albumin 25% 25 GM in IV Premix 1 EACH IV SCH ×4 (03:53→23:12)
[2016-09-17 04:24] LABS: Magnesium 2.2 mg/dL (1.6-2.6)
[2016-09-17 04:38] LABS: TROPONIN T 0.165 ug/L (0.0-0.011)
[2016-09-17] MEDS ORDERED: Potassium Chloride Inj 20 MEQ in Dextrose 5% 250 ML IV ONE (05:00)
[2016-09-17] MEDS ORDERED: DEXTROSE 5% IV ONE (05:09)
[2016-09-17] MEDS ORDERED: POTASSIUM CHLORIDE IV ONE (05:09)
[2016-09-17] MEDS ORDERED: Heparin 5,000 Unit/mL Inj IVPUSH PRN (08:15)
[2016-09-17] MEDS ORDERED: KCl 40 mEq/100 mL (CENTRAL) 40 MEQ in IV Premix 1 EACH IV ONE (08:35)
[2016-09-17 08:38] LABS: INR 1.28 ratio
[2016-09-17] MEDS ORDERED: Calcium GLUCO 10% (Gm) Inj 2 GM in Dextrose 5% 100 ML IV ONE (08:55)
[2016-09-17] MEDS: Heparin 25K Unit/500mL 0.45 NS 25,000 UNIT in IV Premix 1 EACH IV SCH (09:00)
[2016-09-17] MEDS ORDERED: Calcium GLUCO 10% (Gm) Inj 1 GM in 0.9% Sodium Chloride 50 ML IV ONE (09:10)
[2016-09-17] MEDS: Insulin LISPRO 300 Unit/3 mL Inj SUBQ SCH ×3 (09:25→16:20)
[2016-09-17] MEDS: Ertapenem Inj 1,000 MG in 0.9% Sodium Chloride 50 ML IV SCH (09:26)
[2016-09-17] MEDS: Pantoprazole 4 mg/mL 10 mL Inj IVPUSH SCH ×2 (09:42→16:18)
[2016-09-17] MEDS: Furosemide 10 mg/mL 2 mL Inj IVPUSH SCH (09:43)
[2016-09-17] MEDS: DAPTOmycin Inj 500 MG in 0.9% Sodium Chloride 50 ML IV SCH (09:46)
--- NOTE | 2016-09-17 13:32 | NUR ---
NUTRITION ASSESSMENT: ASSESS:61 YO female admitted with severe anasarca in the setting of severe hypoalbuminemia (1.3). Hemoglobin was 6.5 yesterday morning, and subsequently dropped further to 5.8 at noon yesterday. A PICC line was ordered, but ultrasound showing bilateral upper extremity venous thrombosis. A central venous catheter was placed. Patient has a complicated history. She initially developed right hip fracture November 2015 in the context of osteoporosis and underwent arthroplasty at [facility]. Later on April 02, 2016, apparently she developed a spontaneous colonic obstruction, reported in the setting of obstipation, and was readmitted at [facility], this time for a lengthy 3+ month admission. She was admitted to ICU for six weeks and was on ventilator support. Eventually, she was discharged but soon was readmitted in August with increasing abdominal pain, nausea, vomiting, dehydration and sepsis. During that admission, she was diagnosed with MRSA sepsis, although there was no evidence of endocarditis. There were multiple microabscesses involving the liver and elsewhere. 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 Also, a 6 cm left renal solid mass was discovered, extending into the left renal sinus. She had transient cardiomyopathy in the setting of sepsis, which subsequently improved. She was eventually discharged, and Dr. Sampson was contacted to continue her IV antibiotics with daptomycin and ertapenem. She was discharged from [facility] on September 13, and readmitted to this hospital on September 14, for her IV antibiotic infusions. I am unable to visit with patient personally today to determine weight loss history; will provide details tomorrow. PMHx:History of alcoholism (improved), probable chronic pancreatitis in the setting of excessive alcohol intake with recent pseudocysts and possible abscesses, osteoporosis, type 2 diabetes, HTN, R. hip fracture with replacement 2015, colonic rupture 03/26 with subsequent peritonitis and sepsis syndrome (current colostomy). DIET:General. I witnessed her consuming 100% of her clear liquid diet this morning. LABS: Reviewed. Lactic Acid 2.1, Ionized Calcium Calc 6.5, Ferritin 498, Lactate Dehydrogenase 86, Alb 2.5, Lipase 12. MEDICATIONS: Reviewed. Lasix, albumin, melatonin, insulin. NUTRITION FOCUSED PHYSICAL ASSESSMENT: GI symptoms / stool: No stool reported.Haris: 15. Skin Integrity: she is likely at high risk for pressure injuries related to her severe anasarca, which, however, is noted to be much improved since yesterday. ANTHROPOMETRICS: Current Wt: 59.9 kgBMI: 25.0 kg/m2.Admit weight: 58.6 kg IBW: 45.5 kg (128.9% IBW). ESTIMATED NEEDS (LIKELY CANCER CACHEXIA, MALNUTRITION). Calories: 2051 - 2344 kcal (35 - 40 kcal / kg BW) Protein: 88 - 117 g protein (1.5 - 2.0 g / kg BW) Fluid: Approx. 1465 mL (25 mL / kg admit BW) NUTRITION DIAGNOSIS: 1)Severe malnutrition related to prolonged, complicated hospital admission history, as evidenced by severe anasarca, severe loss of subcutaneous fat (orbital, triceps, rib area), severe muscle loss noted around temples, clavicles, shoulders, scapula, likely renal cancer diagnosis. INTERVENTION: 1) Will certainly add supplements to trays and snacks between meals. 2) Will [facility]. MONITOR/EVALUATE: Diet / supplement tolerance, PO intake, labs, GI/nutrition status. Follow up per high nutrition risk guidelines.
--- NOTE | 2016-09-17 16:54 | NUR ---
Social Work: Screen D: Per EMR review, pt is a 61 year old female admitted for Severe Anemia, Anasarca, Hypotension. Pt insurance is [employer]. Pt does not have a PCP. NOK Is Karthik Modi, spouse. Advanced directives not completed- information provided. Readmit score is high, 3/8. Pt discussed in am rounds. Pt has a very complex history with a recent discharge from [facility] where she was admitted to ICU for approximately 6 weeks. Pt was discharged and moved north with her in her fifth wheel trailer. Dr. Sampson assumed pt's care to help coordinate and oversee pt's IV ABX until she could be established with a PCP in the area. Pt was then admitted to [facility]. Pt lives in her Fifth Wheel Trailer with 2 steps to enter. Pt uses a FWW at baseline. PT was able to see the pt today. Pt able to ambulate 5 feet with recommendations for SNF. Per MD at rounds, pt will require many days of hospitalization. MORTUARY OPERATIONS MANAGER will discuss SNF recommendation with MD however per RN report, pt had refused SNF placement when down at [facility]. A: Pt who lives in her trailer with her spouse. P: Evolving; MORTUARY OPERATIONS MANAGER to discuss SNF recommendation with MD and discuss with pt if ordered by MD. MORTUARY OPERATIONS MANAGER to continue to follow. HERMAN Reyes
[2016-09-17] MEDS ORDERED: Furosemide 10 mg/mL 4 mL Inj IVPUSH ONE (17:40)
--- NOTE | 2016-09-17 18:01 | NUR ---
Good spirits today. VSS. Tolerates blood transfusions without problems. Colostomy output brown to bilious in color, guaiac negative. Urine clear yellow. No observed source of bleeding. Abdominal wound cultured as ordered although wound is shallow with mostly dry pale base. Wound care here this evening and will place dressing recommendations in chart. Ostomy leaking this AM, supplies provided, prefers to change device himself. Mepilex in place over sacral wound. PO intake fair, prefers to "graze" on selections over course of day with blood sugars reflecting constant nibbling. MD aware, order rec'd to discontinue OT blood glucoses. Total intake for day roughly was one daniel salad, fruit plate, juice and 2 apple flavor ensure type beverages. Up to chair and enthusiastic regarding PT, "want to get moving". Tolerates increased activity well. Medicated with tylenol for generalized aches afterward. Care explained as given Questions answered as able. present much of day and participates in care.
--- NOTE | 2016-09-17 18:24 | NUR ---
24 hour urine restarted at 1830 6-9 after inadvertently dumping part of today's volume.
--- NOTE | 2016-09-17 19:33 | NUR ---
Wound Note 61 yo female with metastatic cancer, presents with 2 small stage 2 pressure Injuries at her sacrum (POA), has been taking care of them these measure 1.5 cm in length each and 0.3 cm in width each and each with a depth of 0.3 cm, they are draining minimally, no tunneling or undermining noted, cleaned with saline and applied mepilex adhesive foam dressings, frequent repositioning off her back is discussed at length with patient and ,. Abdominal wound to right of colostomy appliance is chronic in nature measuring approximately 6 cm L x 3 cm w x 0.2 cm deep, wound appears dry and base is granular and fibrinous in make up, recommended hydrogel, gauze and tape changed by nursing q 24 hours.
[2016-09-17] MEDS: Ondansetron 2 mg/mL 2 mL Inj IVPUSH PRN (21:51)
--- NOTE | 2016-09-17 22:10 | PROG NOTE ---
[address] [address] PROGRESS NOTE PATIENT: HUNG JAMES : 1955 MR#: [id number] ADMIT: 09/16/2016 JOB ID: [id number] INPATIENT HEMATOLOGY PROGRESS REPORT: DATE: 09/17/2016 DIAGNOSES: 1. Systemic methicillin-resistant Staphylococcus aureus infection associated with widespread microabscesses. 2. Multiple intra-abdominal and upper extremity venous thromboses. 3. Acute disseminated intravascular coagulation. 4. Severe anemia. 5. Solid left renal mass, suspect renal cell carcinoma. SUBJECTIVE: Today the patient feels quite better. She is much more communicative. OBJECTIVE: She looks much less fatigued. Blood pressure 133/74, heart rate 78, temperature 36.5. O2 saturation 97% on room air. Her anasarca has improved. She does not appear to have as many ecchymoses today. LABORATORY: Fibrinogen low at 94. It will need to be closely monitored. INR is 1.28. Hemoglobin 8.7 as of this morning, after one unit blood transfusion head transfer clerk. The rest of CBCs normal. Platelet count has normalized. Procalcitonin has increased to 100. B12 and folate are normal. Direct Ryland test is negative and LDH is low. IMPRESSION/RECOMMENDATIONS: 1. Hypofibrinogenemia. This is consistent with either acute disseminated intravascular coagulation or decreased hepatic synthesis, but probably combination of both. Normally the cryoprecipitate will be given but, in this patient with multiple thromboses, that should not be done. I will place an order for daily fibrinogen. I would expect normalization by tomorrow or next day. 2. Multiple venous thrombosis. Heparin drip has been initiated. 3. Severe anemia. There is probably a component of iron deficiency, but the bigger etiology is ongoing severe infection and probable nonimmune hemolysis due to disseminated intravascular coagulation. Transfuse if hemoglobin 6.9 or less. She does have two alloantibodies. 4. Solid large left kidney mass, highly suspicious for kidney cancer. Fortunately this is on her left kidney which is the atrophic one. I explained to her that this is not a priority at all at this point but hopefully, if her systemic infection resolves, this can be evaluated later and considered for nephrectomy.
--- NOTE | 2016-09-17 22:30 | PCM.PNMED ---
Subjective Date of Service Sep 17, 2016 Subjective After admission yesterday difficulty was had in obtaining blood for transfusion as this had to come from [place]. Eventually the blood arrived and the patient began transfusion of 3 units overnight that finished earlier this am. Pt feels remarkably better. She states her edema has decreased and she feels stronger. Additional unit to transfuse today and additional blood was ordered from [place] as patient was started on Heparin for thrombosis and increasing troponin concerning for asymptomatic NSTEMI. Exam Vital Signs Vital Sign - Last Date Time Temp Pulse Resp B/P Pulse Ox O2 Delivery O2 Flow Rate FiO2 09/17/16 20:25 36.5 90 22 129/67 95 Room Air 09/17/16 03:35 2.00 Intake and Output 09/16/16 09/16/16 09/17/16 Cumulative From/Thru 15:00 23:00 07:00 09/16/16 07:16 - 09/17/16 03:56 Intake Total 100 ml 1420 ml 1175 ml 2695 ml Output Total 800 ml 0 ml 2300 ml 3100 ml Balance -700 ml 1420 ml -1125 ml -405 ml Intake Oral 1020 ml 600 ml 1620 ml IV Total 100 ml 50 ml 280 ml 430 ml Packed Cells 350 ml 295 ml 645 ml Output Urine Total 800 ml 0 ml 2300 ml 3100 ml # Bowel Movements 0 0 Exam General: Appears chronically ill Cardiac: Regular rate and rhythm, decreased auscultation, no murmurs Respiratory: CTA bilaterally. Abdomen: Secondary intention ulcer healing, ostomy is active and appropriate Extremities: limbs warm; pitting edema greatly reduced Skin: clear of rashes IVs and Medications Medications Reviewed: Medications were reviewed in detail Lab and Diagnostics Result Diagram: 09/17/16 1435 09/17/16 1435 X-Rays, CTs and MRIs Chest x-ray IMPRESSION: 1. Continued small right-sided pleural effusion and mild atelectasis. Superimposed pneumonia is difficult to exclude. 2. Unchanged right-sided PICC line catheter. Dictated by: Brendan Marley M.D. on 09/16/2016 at 8:09 12-lead ECG EKG is low-voltage, rate in the 80s, QTC is 665 Assessment & Plan 61-year-old female with extremely complicated course who presents emergency department with severe anemia of 6.5 with no obvious source of bleeding, as well as severe nutrient deficiency and lactic acidosis. Patient was discharged on Lovenox but did not refill (3 days off lovenox) Acute blood loss anemia with macrocytosis and a mild elevated troponin; present admission; resolving -Patient was discharged 2 days ago presenting with a macrocytic anemia with hemoglobin of 6.5 -Unconfirmed source at this time; patient off Lovenox for 3 days; hold lovenox at this point -Questionable hemolysis; see Heme onc note for discussion -Likely some component of iron deficiency -Change protonix to 40mg daily -Hemoccult negative NSTEMI; present on admission; ongoing -presented with very mild troponin elevation; actively increasing level -discussed with cardiology and patient is not a candidate for intervention due to clotting and bleeding disorder -ECHO ordered today -Started on heparin and trending H/H Anasarca secondary to protein deficiency/malnutrition; present admission; resolving -Patient presents with edema up to her sacrum with sparing of the abdomen; albumin of 1.3 on admission -Plans currently to await blood transfusion -Continue albumin replacement and diuresis -Very good improvement with blood administration Subacute liver microabscesses with pancreatic abscess/pseudocyst; present admission; ongoing -patient had hepatic abscesses following MRSA bacteremia. -Dr. Sampson is treating these with daptomycin and ertapenem outpatient infusion -Procalcitonin increased to 100 today -Will consult Dr. Sampson -Continue IV antibiotics per ID Probable DIC; present on admission; resolving -Pt presented with bleeding diathesis and widespread clotting -Fibrinogen low -Fibrinogen replacement by Dr. Terrell Left renal mass with reported capsule invasion; present on admission; stable -Diagnosed at [facility], however, unable to find biopsy results -Patient also had numerous thromboses and was placed on Lovenox, likely due to this mass -US ordered for assessment here -Consulted urology and heme; appreciate their recommendations -More information in records from [facility] Hx of portal, mesenteric, and splenic vein thrombosis -Will continue Lovenox for the current time due to the severity of her prior thrombosis -Prothrombotic state likely second to renal cell carcinoma of the kidney -Consulted Heme/onc Anion gap acidosis with elevated lactate; present admission; resolving/stable -Anion gap of 22 on admission with lactic acid of 4; patient also has a RTA -Recheck tomorrow Hypomagnesemia; present admission; resolved -Replacement with 4 g of mag sulfate -Check an a.m. Right Pleural effusion; present admission; ongoing -Etiology unclear at this time; no known recent history of pneumonia; does have hepatic abscesses -Ultrasound assessment ordered for possible thoracentesis was not adequate for thoracentesis -Repeat CXR tomorrow morning Diabetes type II; present admission; ongoing -Patient does not appear to be on any medications outpatient -A1c 5.5 -Stopped insulin Chronic Severe protein-calorie Malnutrition; present admission; ongoing -Patient has been severely ill for 9 months at one point was on TPN -BMI > 16, however patient with anasarca; obvious underlying severe nutritional deficiency -Dietitian consult requested -Continue albumin infusion Healing abdominal wound from colectomy; present on admission; ongoing -Allowed healing through secondary from colectomy in March 2016 -Wound consult ordered Disposition: Unknown discharge planning at this time. Pt will likely required SNF although there will likely be some resistance to this from patient and . Resuscitation Status: CPR: Attempt Resuscitation Attending Statement The patient was seen and examined together with Dr. Walden on 09/17/16 and I agree with the history, exam and plan as outlined in the note above. Jude Walden DO Sep 17, 2016 22:30 Mariya Mock DO Sep 19, 2016 18:41
[2016-09-18] VITALS (9 sets, daily range): BP systolic 126–154; BP diastolic 69–94; PULSE 73–96; RESP 16–24; O2SAT 90–96
[2016-09-18] MEDS: Albumin 25% 25 GM in IV Premix 1 EACH IV SCH ×4 (04:22→22:35)
[2016-09-18 05:14] LABS: INR 1.81 ratio
--- NOTE | 2016-09-18 06:09 | NUR ---
Pain/Heparin Drip/Skin Pt c/o abdominal pain in ULQ and back pain, pt asking to reposition to achieve comfort but could not, Tylenol had already been given, MD notified of pain location/pain level and ordered tramadol as pt declined any opioids. By that time pt stated pain was 7/10 generalized "I hurt all over." Pt was also given Zofran for nausea with good effect. Tramadol given and pt was able to sleep for a short time after, verbalized understanding to inform nursing if pain returned. Later pt treated with tramadol for 5/10 generalized pain, pain down to 4/10 when reassessed and pt was given Tylenol. After this pt stated she felt relief and was ready to sleep again. Pt has appeared to be sleeping since then. Early in shift PTT heparin came back critical at 149.4, heparin gtt stopped, stat PTT resent and MD notified. Next PTT was therapeutic, per MD, pharmacy to identify best heparin rate for pt. Pharmacy called and stated to set gtt at 350 units/hr, later pharmacy called once more and stated to set gtt at 500units/hr and to redraw at 0500. MD notified of pharmacy recommendation. This morning's PTT continues to be therapeutic. Next PTT in 6 hours per protocol. day RN aware. Pt motivated to turn frequently for comfort and skin protection, Sacrum mepilex intact. Colostomy replaced. Urine bag and 24hr jug placed in ice throughout night. Day RN aware to send at end of day shift.
[2016-09-18 08:25] LABS: Mean Corpuscular Hemoglobin 30.5 pg (27.0-35.0); Mean Corpuscular Volume 94.5 fL (81-100)
[2016-09-18 09:09] LABS: Magnesium 1.7 mg/dL (1.6-2.6)
[2016-09-18 09:16] LABS: TROPONIN T 0.173 ug/L (0.0-0.011)
[2016-09-18] MEDS: DAPTOmycin Inj 500 MG in 0.9% Sodium Chloride 50 ML IV SCH (09:45)
[2016-09-18] MEDS: Pantoprazole 40 mg ER24 Tablet PO SCH (09:46)
[2016-09-18] MEDS: Ertapenem Inj 1,000 MG in 0.9% Sodium Chloride 50 ML IV SCH (09:46)
[2016-09-18] MEDS: Furosemide 10 mg/mL 2 mL Inj IVPUSH SCH (09:46)
[2016-09-18] MEDS ORDERED: KCl 40 mEq/100 mL (CENTRAL) 40 MEQ in IV Premix 1 EACH IV ONE (11:00)
--- NOTE | 2016-09-18 12:12 | DRSVH ---
[facility] [address] [place] [address] Echocardiogram Report Name: HUNG JAMES MStudy Date : 09/18/2016 Height: 60 in Hospital Exam Location: [facility] Weight: 132 lb Gender: Female BSA: 1.6 m2 : 1955 Age: 61 yrs BP: 95/58 mmHg Reason For Study: AL Ordering Physician: SHEILA TEAM Performed By: Flaco Sun Referring Physician: Alvarez LIN Interpretation Summary The left ventricle is normal in size. Left ventricular systolic function is normal without focal wall motion abnormalities. The ejection fraction is estimated to be 65-70%. The right ventricle is normal in size and function. The right ventricular systolic pressure is estimated at 39 mmHg assuming a right atrial pressure of 8 mm Hg. Both atria are normal in size. There is moderate tricuspid regurgitation. There is no other significant valvular heart disease. The aortic root is normal size. There are moderate-sized bilateral pleural effusions noted. Procedure: A two-dimensional transthoracic echocardiogram with color flow and Doppler was performed. The study quality was technically adequate. There is no prior echocardiogram noted for this patient. The patient was in normal sinus rhythm during the exam. Left Ventricle: The left ventricle is normal in size. There is normal left ventricular wall thickness. Left ventricular systolic function is normal without focal wall motion abnormalities. The ejection fraction is estimated to be 65-70%. Assessment of diastolic parameters indicates normal left ventricular diastolic function and normal filling pressures. Right Ventricle: The right ventricle is normal in size and function. Atria: Both atria are normal in size. The interatrial septum is intact with no evidence for an atrial septal defect. Mitral Valve: The mitral valve is normal in structure and function. There is mild mitral annular calcification. There is trace mitral regurgitation. Aortic Valve: The aortic valve is normal in structure and function. The aortic valve is trileaflet. The aortic valve opens well. No aortic regurgitation is present. Tricuspid Valve: The tricuspid valve is normal in structure and function. There is moderate tricuspid regurgitation. The right ventricular systolic pressure is estimated at 39 mmHg assuming a right atrial pressure of 8 mm Hg. Pulmonic Valve: The pulmonic valve is normal in structure and function. There is trace pulmonic regurgitation. There is no other significant valvular heart disease. Great Vessels: The aortic root is normal size. The dimensions of the ascending aorta are normal. The pulmonary artery is normal size. The IVC is of normal diameter and collapses less than 50% with a sniff. This suggests a right atrial pressure of 8 mm Hg. Pericardium/ Pleura There is a trivial pericardial effusion noted. There are moderate-sized bilateral pleural effusions noted. MMode/2D Measurements & Calculations LVIDd: 4.0 cm RA long axis asc Aorta LVIDs: 2.3 cm LA A2 area: 16.4 cm Diam: 3.1 cm FS: 41.8 % LA A4 area: 16.6 cm RA area IVSd: 0.98 cm LA length (vol): 4.9 cm LVPWd: 1.0 cm LA vol: 47.4 ml : 12.7 cm LA vol index RA vol: 30.8 ml RA : 19.7 mm2 IVC diam: 1.8 cm LV grant. diameter/BSA LV sys. diameter/BSA (cm/m^2): 2.6 (cm/m^2): 1.5 Doppler Measurements & Calculations Ao V2 max MV E max eben MV E/A: 1.4 TR max eben : 158.3 cm/sec : 101.1 cm/sec Med Peak E' Eben : 276.6 cm/sec Ao max PG MV A max eben TR max PG : 10.0 mmHg : 71.2 cm/sec E/E' med: 10.0 : 30.6 mmHg Ao mean PG MV A dur: 0.12 sec PA V2 max : 5.2 mmHg : 72.3 cm/sec PA mean PG PA Accel Time : 0.11 sec Ao V2 mean PA V2 mean : 107.8 cm/sec : 51.5 cm/sec Ao V2 VTI: 34.4 cm Reading Physician:MEGHAN
--- NOTE | 2016-09-18 12:21 | CONS ---
[address] [address] CONSULTATION REPORT PATIENT: HUNG JAMES : 1955 MR#: [id number] ADMIT: 09/16/2016 JOB ID: [id number] DATE OF SERVICE: REASON FOR CONSULTATION: Left renal mass. HISTORY OF PRESENT ILLNESS: This complex lady was recently treated at [facility] for multiple issues. A CT scan performed there was reported as having shown a left renal mass. An ultrasound examination performed here confirms a solid mass in the left kidney consistent with a left renal cell carcinoma. PAST MEDICAL, SOCIAL, FAMILY HISTORY: See consultation by Dr. Sampson. PHYSICAL EXAMINATION: A frail-looking 61-year-old, with no findings significant for her left renal mass. IMPRESSION: Left renal cell carcinoma. By no stretch of the imagination is this lady is surgical candidate. Should that situation change, this will be relatively easily handled by a laparoscopic left nephrectomy.
--- NOTE | 2016-09-18 16:28 | PCM.PNMED ---
Subjective Date of Service Sep 18, 2016 Subjective 61-year-old female who is recently discharged from [facility] 2 days ago presents to the emergency department due to increased swelling in her lower extremities and worsening weakness has been persistent since discharge. She feels much better today and reports that her swelling continues to improve. She does not have abdominal pain. Exam Vital Signs Vital Sign - Last Date Time Temp Pulse Resp B/P Pulse Ox O2 Delivery O2 Flow Rate FiO2 09/18/16 14:49 Nasal Cannula 2.00 09/18/16 12:19 36.8 90 22 144/78 90 Intake and Output 09/17/16 09/17/16 09/18/16 Cumulative From/Thru 15:00 23:00 07:00 09/16/16 07:16 - 09/18/16 06:11 Intake Total 625 ml 1710 ml 460 ml 5490 ml Output Total 1750 ml 2500 ml 7350 ml Balance 625 ml -40 ml -2040 ml -1860 ml Intake Oral 760 ml 460 ml 2840 ml IV Total 125 ml 950 ml 1505 ml Packed Cells 500 ml 1145 ml Output Urine Total 1450 ml 2400 ml 6950 ml Stool Total 300 ml 100 ml 400 ml # Bowel Movements 0 Exam General: Appears chronically ill Cardiac: Regular rate and rhythm, decreased auscultation, no murmurs Respiratory: CTA bilaterally. Abdomen: Secondary intention ulcer healing, ostomy is active and appropriate. Nontender. Extremities: limbs warm; Mild pitting edema of bilateral upper and lower extremities Skin: clear of rashes IVs and Medications Medications Reviewed: Medications were reviewed in detail Lab and Diagnostics Result Diagram: 09/18/16 1225 09/18/16 0800 X-Rays, CTs and MRIs Chest x-ray IMPRESSION: 1. Continued small right-sided pleural effusion and mild atelectasis. Superimposed pneumonia is difficult to exclude. 2. Unchanged right-sided PICC line catheter. Dictated by: Brendan Marley M.D. on 09/16/2016 at 8:09 PROCEDURE: US ABDOMEN IMPRESSION: 1. Increased hepatic echogenicity noted likely related to fatty infiltration of the liver but other sources of hepatocellular disease cannot be excluded. Recommend clinical correlation. 2. Solid left renal mass suspicious for underlying neoplasm. Recommend renal protocol CT for further assessment. 3. Small right pleural effusion. 4. Gallbladder sludge with mild thickened gallbladder wall. Developing cholecystitis cannot be excluded. Correlate clinically. Approved by: Rody Welch MD, PhD on 09/16/2016 at 21:49 PROCEDURE: US VENOUS ARM DUPLEX, BILATERAL IMPRESSION: Occlusive thrombus present within the right and left upper extremities. Marciano Walden telephoned with the results by the pianos and organs salesperson at 1624 hrs. 09/16/2016. Approved by: Rody Welch MD, PhD on 09/16/2016 at 16:46 PROCEDURE: US VENOUS LEG DUPLEX BILATERAL IMPRESSION: No DVT found bilaterally. Approved by: Bryant Ramsey M.D. on 09/16/2016 at 17:18 12-lead ECG EKG is low-voltage, rate in the 80s, QTC is 665 Cardiac Echo Impressions Echocardiogram Report Interpretation Summary The left ventricle is normal in size. Left ventricular systolic function is normal without focal wall motion abnormalities. The ejection fraction is estimated to be 65-70%. The right ventricle is normal in size and function. The right ventricular systolic pressure is estimated at 39 mmHg assuming a right atrial pressure of 8 mm Hg. Both atria are normal in size. There is moderate tricuspid regurgitation. There is no other significant valvular heart disease. The aortic root is normal size. There are moderate-sized bilateral pleural effusions noted. Reading Physician:PM Assessment & Plan 61-year-old female with extremely complicated course who presents to the emergency department with severe anemia of 6.5 with no obvious source of bleeding, as well as severe nutrient deficiency and lactic acidosis. Patient was discharged on Lovenox but did not refill (3 days off lovenox) Acute blood loss anemia with macrocytosis and a mild elevated troponin; present admission; resolving -Patient was discharged 2 days prior to admission presenting with a macrocytic anemia with hemoglobin of 6.5 -Unconfirmed source at this time but possible DIC; patient off Lovenox for 3 days -Questionable hemolysis; see Heme onc note for discussion -Hemoccult negative -Likely some component of iron deficiency -Change protonix to 40mg daily NSTEMI; present on admission; ongoing -Presented with very mild troponin elevation; actively increasing level -ECHO did not show any focal wall motion abnormalities and EF 65-70% -Discussed with cardiology and patient is not a candidate for intervention due to clotting and bleeding disorder -Started on heparin and trending H/H Anasarca secondary to protein deficiency/malnutrition; present on admission; resolving -Patient presents with edema up to her sacrum with sparing of the abdomen; albumin of 1.3 on admission -Continue albumin replacement and diuresis -Very good improvement after blood administration 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 -Dr. Sampson is treating these with daptomycin and ertapenem outpatient infusion -Procalcitonin increased to 100 yesterday -Will consult Dr. Sampson -Continue IV antibiotics per ID Probable DIC; present on admission; resolving -Pt presented with bleeding diathesis and widespread clotting -Fibrinogen low -Fibrinogen replacement by Dr. Terrell Left renal mass with reported capsule invasion; present on admission; stable -Diagnosed at [facility], however, unable to find biopsy results -Patient also had numerous thromboses and was placed on Lovenox, likely due to this mass -US reveal renal mass suspicious for neoplasm -Consulted urology and heme; appreciate their recommendations. Not currently an appropriate surgical candidate -More information in records from [facility] Hx of portal, mesenteric, and splenic vein thrombosis -Will continue Heparin drip as above for the current time due to the severity of her prior thrombosis -Prothrombotic state likely second to renal cell carcinoma of the kidney -Consulted Heme/onc Hypocalcemia, present on admission, active. - Given calcium gluconate IV 1 gram today - Start calcium carbonate chews TID - Recheck in the morning Hypokalemia, not present on admission - Potassium chloride IV 40 meq today - Recheck this afternoon and tomorrow morning Anion gap acidosis with elevated lactate; present on admission; resolving/stable -Anion gap of 22 on admission with lactic acid of 4; patient also has a RTA -Recheck tomorrow Hypomagnesemia; present on admission; resolved -Replaced with 4 g of mag sulfate -Check in a.m. Right Pleural effusion; present on admission; ongoing -Etiology unclear at this time but possibly secondary to protein deficiency as below; no known recent history of pneumonia; does have hepatic abscesses -Ultrasound assessment ordered for possible thoracentesis and was not adequate for thoracentesis but echocardiogram reports moderate pleural effusion -Repeat CXR tomorrow morning Diabetes type II; present on admission; ongoing -Patient does not appear to be on any medications outpatient -A1c 5.5 -Stopped insulin Chronic Severe protein-calorie Malnutrition; present on admission; ongoing -Patient has been severely ill for 9 months at one point was on TPN -BMI > 16, however patient with anasarca; obvious underlying severe nutritional deficiency -Dietitian consult requested -Continue albumin infusion Healing abdominal wound from colectomy; present on admission; ongoing -Allowed healing through secondary from colectomy in March 2016 -Wound consult ordered Disposition: Unknown discharge planning at this time. Pt will likely required SNF although there will likely be some resistance to this from patient and . Resuscitation Status: CPR: Attempt Resuscitation Attending Statement The patient was seen and examined together with Dr. Brush on 09/18/16 and I have added additional information to the note above. Hattie Brush DO Sep 18, 2016 16:19 Mariya Mock DO Sep 18, 2016 18:27
[2016-09-18] MEDS ORDERED: Calcium GLUCO 10% (Gm) Inj 1 GM in 0.9% Sodium Chloride 50 ML IV ONE (16:40)
--- NOTE | 2016-09-18 18:16 | NUR ---
pain/24hr urine Cardiac: Pt denies CP, Tele SR 70s-90s Resp: Pt denies SOB, SPO2 low to mid 90s on RA. GI/: Pt denies n/v/d, colostomy passing liquid brown stool. 24 hour urine collection complete at 1830. Neuro: Pt A&O, SAHA, pt did not sleep well and is very tired. knee pain this afternoon, positioning and tylenol effective.
[2016-09-18 20:10] LABS: TOTAL VOLUME,URINE 2700 mL
[2016-09-18 20:24] LABS: Creatinine 24 Hour,Urine 270 mg/24Hr (800-1800)
[2016-09-19] VITALS (9 sets, daily range): BP systolic 142–155; BP diastolic 77–86; PULSE 91–97; RESP 18–24; O2SAT 91–96
[2016-09-19] MEDS: Albumin 25% 25 GM in IV Premix 1 EACH IV SCH ×4 (04:21→21:55)
[2016-09-19 05:06] LABS: Mean Corpuscular Hemoglobin 30.8 pg (27.0-35.0); Mean Corpuscular Volume 96.4 fL (81-100)
[2016-09-19 05:50] LABS: Magnesium 1.5 mg/dL (1.6-2.6)
[2016-09-19 05:56] LABS: TROPONIN T 0.182 ug/L (0.0-0.011)
[2016-09-19 06:01] LABS: INR 1.67 ratio
[2016-09-19] MEDS ORDERED: Magnesium Sulf 4 Gm/100 mL H2O 4 GM in IV Premix 1 EACH IV ONE (06:40)
--- NOTE | 2016-09-19 07:46 | NUR ---
UOP/O2/Skin Pt UOP minimal last night at 200cc, MD notified. No new orders at this time. SpO2 fluctuated last night as pt slept, sats mostly adequate at 2L NC but at times would desat to 91, pt placed on 3L NC and connected to DYNAMIC BALANCER for better monitoring. Sats 95-96% on 3L. Overall pt appeared to sleep comfortably, given Tylenol x1 early in shift for 4/10 generalized pain, no further c/o pain after that. Calmoseptine use around groin d/t generalized redness/rash. Critical troponin called by lab, slightly higher than before, notified MD. No new orders. See labs for results. Heparin drip continues at 450units/hr, next PTT ordered for noon.
--- NOTE | 2016-09-19 08:18 | DRSVH ---
PROCEDURE: X-RAY CHEST ONE VIEW, PORTABLE ([id number]) INDICATIONS: pleural effusions TECHNIQUE: One view of the chest was acquired. COMPARISON: [facility], CR, XR CHEST 1VW (PORTABLE), 09/16/2016, 18:33. FINDINGS: Surgical changes and devices: Left chest wall internal jugular catheter stable in position with the t ip in the superior vena cava. The right upper extremity PICC line has been removed. Lungs and pleura: There are small bilateral pleural effusions, increased from the prior study. Ther e also increased left retrocardiac airspace opacities with air bronchograms consistent with consolida tion. Right basilar opacities also increased, consistent with atelectasis or consolidation. Mediastinum: Mediastinal contours appear unchanged. Heart size is normal. Bones and chest wall: No suspicious bony lesions. Overlying soft tissues appear unremarkable. IMPRESSION: 1. Increased small bilateral pleural effusions with left retrocardiac consolidation suspicious for p neumonia or aspiration. 2. Increased right basilar compressive atelectasis or consolidation. Dictated by: Jb Enriquez M.D. on 09/19/2016 at 8:09 Approved by: Jb Enriquez M.D. on 09/19/2016 at 8:11
[2016-09-19] MEDS: Pantoprazole 40 mg ER24 Tablet PO SCH (08:46)
[2016-09-19] MEDS: Ertapenem Inj 1,000 MG in 0.9% Sodium Chloride 50 ML IV SCH (08:48)
[2016-09-19] MEDS: Furosemide 10 mg/mL 2 mL Inj IVPUSH SCH (08:53)
[2016-09-19] MEDS: DAPTOmycin Inj 500 MG in 0.9% Sodium Chloride 50 ML IV SCH (09:27)
[2016-09-19] MEDS: Heparin 25K Unit/500mL 0.45 NS 25,000 UNIT in IV Premix 1 EACH IV SCH (09:30)
[2016-09-19] MEDS ORDERED: Furosemide 10 mg/mL 10 mL Inj IVPUSH ONE (12:55)
--- NOTE | 2016-09-19 13:07 | PCM.PNMED ---
Subjective Date of Service Sep 19, 2016 Subjective 61-year-old female who is recently discharged from [facility] 2 days ago presents to the emergency department due to increased swelling in her lower extremities and worsening weakness has been persistent since discharge. Overnight patient continues better. States that she has more energy and wants to get to ambulating. She denies review of systems. She is eating well. Exam Vital Signs Vital Sign - Last Date Time Temp Pulse Resp B/P Pulse Ox O2 Delivery O2 Flow Rate FiO2 09/19/16 11:10 37.1 97 18 155/86 94 Nasal Cannula 3.00 Intake and Output 09/18/16 09/18/16 09/19/16 Cumulative From/Thru 15:00 23:00 07:00 09/16/16 07:16 - 09/19/16 06:31 Intake Total 419 ml 1060 ml 240 ml 7209 ml Output Total 950 ml 200 ml 8500 ml Balance 419 ml 110 ml 40 ml -1291 ml Intake Oral 600 ml 240 ml 3680 ml IV Total 419 ml 460 ml 2384 ml Packed Cells 1145 ml Output Urine Total 950 ml 200 ml 8100 ml Stool Total 400 ml # Bowel Movements 0 0 Exam General: Appears chronically ill; no acute distress; Cardiac: Regular rate and rhythm, decreased auscultation, no murmurs Respiratory: CTA bilaterally. Abdomen: Secondary intention ulcer healing, ostomy is active and appropriate. Nontender. Extremities: limbs warm; +1 pitting edema in lower extremities and decreased significantly in upper extremities Skin: clear of rashes Psych: Appropriate mood and affect IVs and Medications Medications Reviewed: Medications were reviewed in detail Lab and Diagnostics Result Diagram: 09/19/16 04309/19/16 0430 X-Rays, CTs and MRIs Chest x-ray IMPRESSION: 1. Continued small right-sided pleural effusion and mild atelectasis. Superimposed pneumonia is difficult to exclude. 2. Unchanged right-sided PICC line catheter. Dictated by: Brendan Marley M.D. on 09/16/2016 at 8:09 PROCEDURE: US ABDOMEN IMPRESSION: 1. Increased hepatic echogenicity noted likely related to fatty infiltration of the liver but other sources of hepatocellular disease cannot be excluded. Recommend clinical correlation. 2. Solid left renal mass suspicious for underlying neoplasm. Recommend renal protocol CT for further assessment. 3. Small right pleural effusion. 4. Gallbladder sludge with mild thickened gallbladder wall. Developing cholecystitis cannot be excluded. Correlate clinically. Approved by: Rody Welch MD, PhD on 09/16/2016 at 21:49 PROCEDURE: US VENOUS ARM DUPLEX, BILATERAL IMPRESSION: Occlusive thrombus present within the right and left upper extremities. Marciano Walden telephoned with the results by the mechanical maintenance technician at 1624 hrs. 09/16/2016. Approved by: Rody Welch MD, PhD on 09/16/2016 at 16:46 PROCEDURE: US VENOUS LEG DUPLEX BILATERAL IMPRESSION: No DVT found bilaterally. Approved by: Bryant Ramsey M.D. on 09/16/2016 at 17:18 12-lead ECG EKG is low-voltage, rate in the 80s, QTC is 665 Cardiac Echo Impressions Echocardiogram Report Interpretation Summary The left ventricle is normal in size. Left ventricular systolic function is normal without focal wall motion abnormalities. The ejection fraction is estimated to be 65-70%. The right ventricle is normal in size and function. The right ventricular systolic pressure is estimated at 39 mmHg assuming a right atrial pressure of 8 mm Hg. Both atria are normal in size. There is moderate tricuspid regurgitation. There is no other significant valvular heart disease. The aortic root is normal size. There are moderate-sized bilateral pleural effusions noted. Reading Physician:PM Assessment & Plan 61-year-old female with extremely complicated course who presents to the emergency department with severe anemia of 6.5 with no obvious source of bleeding, as well as severe nutrient deficiency and lactic acidosis. Patient was discharged on Lovenox but did not refill (3 days off lovenox) Anasarca secondary to protein deficiency/malnutrition; present on admission; resolving -Patient presents with edema up to her sacrum with sparing of the abdomen; albumin of 1.3 on admission -Patient improved greatly after blood, progress slowed over the last 2 days -Continue albumin 25 mg every 6 -Lasix 60 mg afternoon; continued 20 mg a.m. Suspected Acute blood loss anemia with macrocytosis; present admission; resolving -Patient was discharged 2 days prior to admission presenting with a macrocytic anemia with hemoglobin of 6.5 -GI versus possible DIC; patient off Lovenox for 3 days prior to admission -Questionable hemolysis; see Heme onc note for discussion -Hemoccult negative 3 -Likely some component of iron deficiency -Continue protonix to 40mg daily -Continue to trend H&H every 12 -Patient has unique antibodies and additional specific blood was ordered from [facility] on Tuesday NSTEMI with ? 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 -Dr. Sampson is treating these with daptomycin and ertapenem outpatient infusion -Procalcitonin increased to 100 yesterday -Will consult Dr. Sampson -Continue IV antibiotics per ID Probable DIC; present on admission; resolving -Pt presented with bleeding diathesis and widespread clotting -Fibrinogen low -Fibrinogen replacement by Dr. Terrell Left renal mass with reported capsule invasion; present on admission; stable -Diagnosed at [facility], however, unable to find biopsy results; visualize with ultrasound -Patient also had numerous thromboses and was placed on Lovenox, likely due to this mass -Urology consulted and recommend reevaluation patient is a proper surgical count -Continue Lovenox to prevent malignancy induced hypercoagulability Hx of portal, mesenteric, and splenic vein thrombosis -Will continue Heparin drip as above for the current time due to the severity of her prior thrombosis -Prothrombotic state likely second to renal cell carcinoma of the kidney -Consulted Heme/onc; appreciative recommendations Hypocalcemia, present on admission, active. - Given calcium gluconate IV 1 gram today - Start calcium carbonate chews TID Hypokalemia, not present on admission; ongoing - Stable today; Lasix this afternoon - Replaced potassium due to Lasix Anion gap acidosis with elevated lactate; present on admission; resolving/stable -Anion gap of 22 on admission with lactic acid of 4; patient also has a RTA -Recheck tomorrow -Patient has underlying RTA Hypomagnesemia; present on admission; resolved -Replaced with 4 g of mag sulfate again -Check in a.m. Right Pleural effusion; present on admission; ongoing -Etiology unclear at this time but possibly secondary to protein deficiency as below; no known recent history of pneumonia; does have hepatic abscesses -Ultrasound assessment ordered for possible thoracentesis and was not adequate for thoracentesis but echocardiogram reports moderate pleural effusion -Repeat CXR tomorrow morning Diabetes type II; present on admission; ongoing -Patient does not appear to be on any medications outpatient -A1c 5.5 -Stopped insulin Chronic Severe protein-calorie Malnutrition; present on admission; ongoing -Patient has been severely ill for 9 months at one point was on TPN -BMI > 16, however patient with anasarca; obvious underlying severe nutritional deficiency -Dietitian consult; appreciate their work -Continue albumin infusion Healing abdominal wound from colectomy; present on admission; ongoing -Allowed healing through secondary from colectomy in March 2016 -Wound consult ordered Disposition: Likely discharge in 2-3 days; recommending sniff however patient wishes to go home. She will most inflamed need dietitian and physical therapy Resuscitation Status: CPR: Attempt Resuscitation Attending Statement The patient was seen and examined together with Dr. Walden on 09/19/16nd I have added additional information to the note above. Jude Walden DO Sep 19, 2016 13:06 Mariya Mock DO Sep 19, 2016 16:59
--- NOTE | 2016-09-19 18:06 | NUR ---
Activity/SPO2/edema Cardiac: Pt denies CP. Tele SR 80s-90s, 60 mg lasix IV given this afternoon, maia palomo applied this evening. Resp: Pt reports mild SOB with activity, SPO2 94-95% on 3L NC. O2 titrated up this afternoon to 4L NC due to pt desat down to 87% when working with PT. Titrated back down to 3L by end of shift. GI/: Pt denies n/v, colostomy putting out liquid brown stool. Neuro: Pt A&O, SAHA, pt up to chair for meals, working with PT, very motivated to do PT. and staff assisting with activities. Pt gets sore when sedentary too long, activity encouraged.
[2016-09-19] MEDS ORDERED: 0.9% Sodium Chloride 250 ML ONE (21:52)
[2016-09-20] VITALS (8 sets, daily range): BP systolic 143–155; BP diastolic 73–89; PULSE 86–91; RESP 16–20; O2SAT 92–95
[2016-09-20] MEDS: Albumin 25% 25 GM in IV Premix 1 EACH IV SCH ×3 (03:45→15:58)
[2016-09-20 04:05] LABS: BASOPHILS % (AUTO) 0.5 % (0-3); EOSINOPHILS % (AUTO) 0.7 % (0-5); MONOCYTES % (AUTO) 10.2 % (4-12); Mean Corpuscular Hemoglobin 30.5 pg (27.0-35.0); Mean Corpuscular Volume 96.8 fL (81-100); NEUTROPHILS % (AUTO) 63.9 % (40-74); Platelet Count 234 bil/L (150-400)
[2016-09-20 05:10] LABS: Magnesium 1.9 mg/dL (1.6-2.6)
--- NOTE | 2016-09-20 05:14 | NUR ---
Respiratory/ edema: Sp02 maintained in the mid 90s on 4 L NC, pt does desat into the high 80s with activity. LE edema improved. Albumin given as ordered. Heparin gtt infusing per protocol. Tylenol at Melatonin given at HS per pt request. Pt sleeping comfortably overnight.
--- NOTE | 2016-09-20 05:24 | NUR ---
K: K this am 2.8. Values paged to Night resident.
[2016-09-20] MEDS ORDERED: Potassium Chloride 20 mEq/15 mL 15mL Oral Soln PO ONE (05:45)
[2016-09-20] MEDS: Ondansetron 2 mg/mL 2 mL Inj IVPUSH PRN (06:20)
[2016-09-20] MEDS: Potassium Chloride 20 mEq SR Tablet PO SCH (08:00)
[2016-09-20] MEDS: Pantoprazole 40 mg ER24 Tablet PO SCH (08:59)
[2016-09-20] MEDS: Ertapenem Inj 1,000 MG in 0.9% Sodium Chloride 50 ML IV SCH (09:05)
[2016-09-20] MEDS: Furosemide 10 mg/mL 2 mL Inj IVPUSH SCH (09:05)
[2016-09-20] MEDS ORDERED: 0.9% Sodium Chloride 250 ML ONE (09:05)
[2016-09-20] MEDS ORDERED: KCl 40 mEq/100 mL (CENTRAL) 40 MEQ in IV Premix 1 EACH IV ONE (10:10)
[2016-09-20] MEDS: DAPTOmycin Inj 500 MG in 0.9% Sodium Chloride 50 ML IV SCH (12:16)
--- NOTE | 2016-09-20 14:59 | NUR ---
NUTRITION FOLLOW UP: ASSESS: 61 YO F admitted with severe anasarca in the setting of severe hypoalbuminemia (1.3) and severe malnutrition. Palliative care consulted. Pt's PO intake appears to be declining. Pt does not want to eat per rounds. PMHx: Hx alcoholism (improved), probable chronic pancreatitis, pseudocysts, possible abscesses, osteoporosis, type 2 diabetes, HTN, R. hip fracture with replacement, colonic rupture, peritonitis, sepsis syndrome (current colostomy). DIET: General. PO intake refusal-75%. LABS: Reviewed. K+ 2.8, BUN 7, Glu 148, Ca 7.6, Phos 2.0 MEDICATIONS: Reviewed. Lasix, albumin.. GI: No stool reported. SKIN: No issues noted. ANTHROPOMETRICS: Current Wt: 56.5 kg, BMI: 24.3 kg/m2. Admit weight: 58.6 kg, IBW: 45.5 kg (128.9% IBW). ESTIMATED NEEDS (LIKELY CANCER CACHEXIA, MALNUTRITION). Calories: 8462-2868 kcal (35-40 kcal/kg BW) Protein: 88-117 g protein (1.5-2.0 g/kg BW) Fluid: Approx. 1465 mL (25 mL/kg admit BW) NUTRITION DIAGNOSIS: 1) Severe malnutrition related to prolonged, complicated hospital admission history, as evidenced by severe anasarca, severe loss of subcutaneous fat (orbital, triceps, rib area), severe muscle loss noted around temples, clavicles, shoulders, scapula, likely renal cancer diagnosis.---PERSISTS. INTERVENTION: 1) Continue current diet and supplements as ordered. 2) Will offer high kcal/protein diet information. 3) Will [facility]. MONITOR/EVALUATE: Diet tolerance, PO intake, wt, labs, GI/nutrition status. Follow per high nutrition risk guidelines.
--- NOTE | 2016-09-20 15:47 | NUR ---
Activity/oxygenation Pt is reporting an increase in generalized weakness. Attempted to get the patient up this morning to sit in the chair for breakfast and was unable to get her to a standing position despite assistance. Pt reported she felt "too weak" and was also increasingly dyspneic. Oxygen sat dropped to 84% with activity, increased fiO2 to 4L and patient was able to recover at rest (back up to 92%).
--- NOTE | 2016-09-20 16:11 | PCM.PNMED ---
Subjective Date of Service Sep 20, 2016 Subjective Patient continues to make progress. Symptoms are resolving and patient was improving with physical therapy although yesterday it sounds like she was too weak to transfer. She denies review of systems as morning. Exam Vital Signs Vital Sign - Last Date Time Temp Pulse Resp B/P Pulse Ox O2 Delivery O2 Flow Rate FiO2 09/20/16 15:20 Nasal Cannula 2.00 09/20/16 12:58 91 09/20/16 11:45 37.1 20 147/84 94 Intake and Output 09/19/16 09/19/16 09/20/16 Cumulative From/Thru 15:00 23:00 07:00 09/16/16 07:16 - 09/20/16 06:53 Intake Total 465 ml 1246 ml 609 ml 9529 ml Output Total 2150 ml 1200 ml 23066 ml Balance 465 ml -904 ml -591 ml -2321 ml Intake Oral 775 ml 300 ml 4755 ml IV Total 465 ml 471 ml 309 ml 3629 ml Packed Cells 1145 ml Output Urine Total 1750 ml 1000 ml 82601 ml Stool Total 200 ml 600 ml Estimated Blood Loss 400 ml 400 ml # Bowel Movements 0 Exam General: Appears chronically ill; no acute distress; Cardiac: Regular rate and rhythm, decreased auscultation, no murmurs Respiratory: CTA bilaterally. Abdomen: Secondary intention ulcer healing, ostomy is active and appropriate. Nontender. Extremities: limbs warm; +1 pitting edema in lower extremities and decreased significantly in upper extremities Psych: Appropriate mood and affect IVs and Medications Medications Reviewed: Medications were reviewed in detail Lab and Diagnostics Result Diagram: 09/20/16 0350 09/20/16 0350 X-Rays, CTs and MRIs Chest x-ray IMPRESSION: 1. Continued small right-sided pleural effusion and mild atelectasis. Superimposed pneumonia is difficult to exclude. 2. Unchanged right-sided PICC line catheter. Dictated by: Brendan Marley M.D. on 09/16/2016 at 8:09 PROCEDURE: US ABDOMEN IMPRESSION: 1. Increased hepatic echogenicity noted likely related to fatty infiltration of the liver but other sources of hepatocellular disease cannot be excluded. Recommend clinical correlation. 2. Solid left renal mass suspicious for underlying neoplasm. Recommend renal protocol CT for further assessment. 3. Small right pleural effusion. 4. Gallbladder sludge with mild thickened gallbladder wall. Developing cholecystitis cannot be excluded. Correlate clinically. Approved by: Rody Welch MD, PhD on 09/16/2016 at 21:49 PROCEDURE: US VENOUS ARM DUPLEX, BILATERAL IMPRESSION: Occlusive thrombus present within the right and left upper extremities. Marciano Walden telephoned with the results by the physical meteorologist at 1624 hrs. 09/16/2016. Approved by: Rody Welch MD, PhD on 09/16/2016 at 16:46 PROCEDURE: US VENOUS LEG DUPLEX BILATERAL IMPRESSION: No DVT found bilaterally. Approved by: Bryant Ramsey M.D. on 09/16/2016 at 17:18 12-lead ECG EKG is low-voltage, rate in the 80s, QTC is 665 Cardiac Echo Impressions Echocardiogram Report Interpretation Summary The left ventricle is normal in size. Left ventricular systolic function is normal without focal wall motion abnormalities. The ejection fraction is estimated to be 65-70%. The right ventricle is normal in size and function. The right ventricular systolic pressure is estimated at 39 mmHg assuming a right atrial pressure of 8 mm Hg. Both atria are normal in size. There is moderate tricuspid regurgitation. There is no other significant valvular heart disease. The aortic root is normal size. There are moderate-sized bilateral pleural effusions noted. Reading Physician:PM Assessment & Plan 61-year-old female with extremely complicated course who presents emergency department with severe anemia of 6.5 with no obvious source of bleeding, as well as severe nutrient deficiency and lactic acidosis. Patient was discharged on Lovenox but did not refill (3 days off lovenox) Hypertension; ongoing -Patient's blood pressures are routinely above 150 -Started lisinopril today -continue metoprolol and consider changing carvedilol if blood pressures of refractory to SELINA inhibitor Acute hypoxic respiratory failure; present admission; ongoing -Patient is requiring more oxygen here that home; initially thought to be due to anemia but is persistent -Chest x-ray appears to have some consolidation versus edema on the right lower lobe, and questionable left lower lobe -Two-view chest x-ray Anasarca secondary to protein deficiency/malnutrition; present on admission; ongoing -Patient presents with edema up to her sacrum with sparing of the abdomen; albumin of 1.3 on admission -With sever hx of clotting, worrisome for bilateral DVT -Plans currently to await blood transfusion -50 mg albumin IV; 25 mg IV 4 times a day -Diuresis after patient has received blood and is more stable Subacute liver abscesses; present on admission; ongoing -patient had hepatic abscesses following MRSA bacteremia. -Dr. Sampson is treating these with daptomycin and ertapenem outpatient infusion -Patient's procalcitonin still around 18 -Will consult Dr. Sampson -Continue IV antibiotics per ID Acute blood loss anemia with macrocytosis and a mild elevated troponin; present admission; stable -Patient was discharged 2 days ago presenting with a macrocytic anemia with hemoglobin of 6.5; elevated troponin likely due to recent tachycardia with inadequate oxygen delivery -Unknown source at this time with a questionable GI bleed; however, patient off Lovenox for 3 days; hold lovenox at this point -Reticulocyte count was 7.8 indicating that she is responding to this anemia, ruling out bone marrow suppression -Bilirubin normal, will check haptoglobin and smear to rule out hemolysis -Iron studies pending -Stop Protonix today -Hemoccult 3 negative Left renal mass with reported capsule invasion; present on admission; stable -Diagnosed at [facility], however, unable to find biopsy results -Patient also had numerous thromboses and was placed on Lovenox, likely due to this mass -US ordered for assessment here -Consulted urology and heme; appreciate their recommendations -More information in records from [facility] Hx of portal, mesenteric, and splenic vein thrombosis -Will continue Lovenox for the current time due to the severity of her prior thrombosis -Prothrombotic state likely second to renal cell carcinoma of the kidney Anion gap acidosis with elevated lactate; present admission; stable -Anion gap of 22 on admission with lactic acid of 4; patient also has a RTA -Awaiting blood transfusions -Following transfusions will assess fluid balance -Recheck tomorrow Hypomagnesemia; present admission; ongoing -Replacement with 4 g of mag sulfate -Follow Right Pleural effusion; present admission; stable -Etiology unclear at this time; no known recent history of pneumonia; does have hepatic abscesses -Ultrasound assessment ordered for possible thoracentesis -Repeat CXR tomorrow morning Diabetes type II; present admission; resolved -Patient does not appear to be on any medications outpatient -A1c 5.5 -Stopped all insulin Chronic Severe protein-calorie Malnutrition; present admission; stable -Patient has been severely ill for 9 months at one point was on TPN -BMI > 16, however patient with anasarca; obvious underlying severe nutritional deficiency -Dietitian consult requested -Continue albumin infusion Healing abdominal wound from colectomy; present on admission; stable -Allowed healing through secondary from colectomy in March 2016 -Wound consult ordered Disposition: 1-2 days and then discharge home has patient does not wish to go to SNF. Order for social work evaluation for SNF. Pain Evaluation: Adequate Pain Control Resuscitation Status: CPR: Attempt Resuscitation Attending Statement The patient was seen and examined together with Dr. Walden on 09/20/2016 and I agree with the history, exam and plan as outlined in the note above. . Jude Walden DO Sep 20, 2016 16:11 David Belle MD Sep 21, 2016 07:45
--- NOTE | 2016-09-20 16:33 | NUR ---
Social Work Note: Continue Discharge Planning Data& Assessment: SW received MD order to help arrange SNF placement for pt. SW met with pt and pt at bedside to present SNF list for preferences. Pt and pt decline SNF and explained they plan to come to [facility] for outpt PT and come to [facility] for IV Infusion. Pt and pt deny any other needs. No other discharge needs identified at this time. SW to continue to follow if any needs arise. Plan: Anticipated discharge home via POV when medically ready with outpt PT and IV infusion. No other discharge needs identified at this time. SW to continue to follow if any needs arise. HERMAN Saldivar
--- NOTE | 2016-09-20 17:52 | PROG NOTE ---
[address] [address] PROGRESS NOTE PATIENT: HUNG JAMES : 1955 MR#: [id number] ADMIT: 09/16/2016 JOB ID: [id number] DATE: 09/20/2016 REASON FOR FOLLOWUP: Complex patient with MRSA bacteremia, hepatic abscesses, hypercoagulable state with multiple venous clot and multiple other medical problems. INTERIM HISTORY: Over the weekend, the patient has improved somewhat. She was profoundly anemic and improved with transfusions. Unfortunately, she developed a DVT in her right upper extremity and the PICC there, which had been placed at [facility], had to be pulled. She was also found to have DVT in the left upper extremity which had not previously had a PICC. Recall that she also has clots in her splenic vein, mesenteric veins and portal vein suggesting a profound hypercoagulable state. Despite the problems with her IV lines which have been partly rectified with the new left IJ, the patient has improved somewhat over the weekend. Today, she felt a bit tired and somewhat short of breath and is, of course, still requiring nasal oxygen. She has no fevers or chills, however, and denies any change in her chronic cough. PHYSICAL EXAMINATION: Reveals an afebrile woman. Temperature is now 37, was 37.7 earlier this morning. Pulse 91, respiratory rate 20, blood pressure 155/89, saturating 92% on 3 L. She is in no acute distress. Examination of her eyes reveals no conjunctival hemorrhage though there is conjunctival pallor. Oral cavity without change. No thrush is noted. A left IJ is present. The right upper extremity is larger than the left indicative of a DVT that was on the right, but note that there is also one on the left and that is not clinically evident. The abdomen is soft except for some fullness in the right upper quadrant which is nontender. The colostomy is present on the left side, and the healing abdominal wound in the midline. LABORATORIES: Include white count of 8700, creatinine 0.88. LFTs are normal. Procalcitonin was 99, that is now down to 75. Urinalysis 11-50 white cells. HIV is negative. Micro studies include negative blood cultures here. We also have an abdominal wall swab which is culture negative. Urine culture is negative. MRSA screen negative. Today's chest x-ray showed bibasilar atelectasis. IMPRESSION: Overall, this extremely complex patient is somewhat improved over the weekend. Recall that she was admitted after only a couple of visits to the outpatient clinic where she was given a prolonged course of daptomycin and ertapenem. She was admitted late last week because of weakness, however, related to a dramatically low hematocrit as well as electrolyte disorders. Our tentative plan remains daptomycin and ertapenem through October 08, but it is going to be difficult as we now have clots in both upper extremities. RECOMMENDATIONS: 1. Will continue with dapsone and ertapenem at this time. 2. Will continue to follow this patient for her multiple medical problems. 3. It may be that we will need a [place] or similar line to be placed for continued IV antibiotics. Another way to manage this patient might be with dalbavancin as apparently the only thing that grew from her blood cultures at [facility] was MRSA and at least in theory daptomycin might be adequate. Little is known about this, however, and I would be reluctant to use this unless we are forced to, but if we have absolutely no place to place a central line, it may become an option.
[2016-09-20] MEDS: Heparin 25K Unit/500mL 0.45 NS 25,000 UNIT in IV Premix 1 EACH IV SCH (21:09)
[2016-09-21] VITALS (10 sets, daily range): BP systolic 105–170; BP diastolic 81–97; PULSE 85–89; RESP 16–24; O2SAT 93–95
[2016-09-21] MEDS: Albumin 25% 25 GM in IV Premix 1 EACH IV SCH ×3 (00:23→18:09)
--- NOTE | 2016-09-21 01:20 | NUR ---
CALLED TO ASSESS PATIENT'S BREATHING DUE TO REPETITIVE COUGHING AND FEELING SHORT OF BREATH. PATIENT'S MOUTH WITH LARGE AMOUNTS OF WHITE YEAST LOOKING DEPOSITS ON TOUNGE,ROOF AND BACK OF THROAT. RN SHOWN THEN MOUTH CLEANED AND SUCTIONED AND SOME DEEP ORAL SUCTION FOR LARGE AMOUNT THIN CREAMY SECRETIONS FROM BACK OF OROPHARYNX. PATIENT CHANGED FROM NC TO OXYMASK AT 6 LS FOR SPO2 TO 95%. FEELS LIKE SHE CAN BREATH BETTER AND NO LONGER COUGHING REPETITIVELY. "I THINK I MIGHT BE ABLE TO SLEEP NOW".
--- NOTE | 2016-09-21 03:32 | NUR ---
Yeast/thrush Pt has red rash to perineum/buttocks that looks like yeast. Also, has white spots to mouth consistent with thrush. Stats she had thrush about a week ago. MD notified and orders received.
[2016-09-21] MEDS ORDERED: 0.9% Sodium Chloride 250 ML ONE (04:36)
[2016-09-21 04:47] LABS: BASOPHILS % (AUTO) 0.4 % (0-3); EOSINOPHILS % (AUTO) 0.2 % (0-5); MONOCYTES % (AUTO) 6.8 % (4-12); Mean Corpuscular Hemoglobin 30.8 pg (27.0-35.0); Mean Corpuscular Volume 97.7 fL (81-100); NEUTROPHILS % (AUTO) 74.6 % (40-74); Platelet Count 289 bil/L (150-400)
[2016-09-21 05:30] LABS: Magnesium 1.7 mg/dL (1.6-2.6); Phosphorus 2.5 mg/dL (2.5-4.9)
[2016-09-21 05:38] LABS: TROPONIN T 0.204 ug/L (0.0-0.011)
[2016-09-21] MEDS: Nystatin 100,000 Unit/mL 5 mL Suspension PO SCH ×4 (08:30→22:05)
[2016-09-21] MEDS: DAPTOmycin Inj 500 MG in 0.9% Sodium Chloride 50 ML IV SCH (08:30)
--- NOTE | 2016-09-21 08:32 | ABG ---
DateTimeAnalyzed 08:27:00 -_ pH ____7.437 - 7.350 7.450 pCO2 ___30.9__ -mmHg 35.0 45.0 pO2 ___63.7__ -mmHg 69.0 116 HCO3- ___20.5__ -mmol/L 22.0 26.0 ABE ___-2.6__ -mmol/L -2.0 2.0 tHb ____9.8__ -g/dL O2Hb ___90.7__ -% COHb ____2.0__ -% MetHb ____1.0__ -% sO2 ___93.5__ -% FIO2 ___21.0__ -% Drawn By RS - Date/Time Notified____ 08:32:00 -_ Liter_Flow ____4.0__ -L/min Oxygen Device 1 __oxymask - Notified By RS - Notified Whom ___Dr. Walden - B 760 -mmHg tO2 ___12.6__ -Vol% Jesse test _Positive -
--- NOTE | 2016-09-21 08:53 | PCM.PNMED ---
Subjective Date of Service Sep 21, 2016 Subjective This is a 61 year old female with a series of unfortunate events that began with a fall in 2016 which led to a right hip fracture and total hip replacement. She then had severe obstipation which led to colonic rupture. She developed MRSA sepsis with microabscess on liver as well as multiple sites of thrombosis including portal vein and mesenteric vein. She was incidentally found to have a renal mass which is thought to be probable renal cell carcinoma. Overnight patient required increasing oxygen demands and this morning was on 6 liters by oxymask. Other then shortness of breath she denies any other issues. Exam Vital Signs Vital Sign - Last Date Time Temp Pulse Resp B/P Pulse Ox O2 Delivery O2 Flow Rate FiO2 09/21/16 04:22 37.4 88 18 156/96 94 OxyMask 6.00 Intake and Output 09/20/16 09/20/16 09/21/16 Cumulative From/Thru 15:00 23:00 07:00 09/16/16 07:16 - 09/21/16 06:05 Intake Total 1101 ml 512 ml 51629 ml Output Total 1050 ml 550 ml 90437 ml Balance 51 ml -38 ml -2308 ml Intake Oral 390 ml 240 ml 5385 ml IV Total 711 ml 272 ml 4612 ml Packed Cells 1145 ml Output Urine Total 650 ml 400 ml 14390 ml Stool Total 400 ml 150 ml 1150 ml Estimated Blood Loss 400 ml # Bowel Movements 0 Exam General: Appears chronically ill; no acute distress; Cardiac: Regular rate and rhythm, decreased auscultation, no murmurs Respiratory: CTA bilaterally. Abdomen: Secondary intention ulcer healing, ostomy is active and appropriate. Nontender. Extremities: limbs warm; +1 pitting edema in lower extremities and decreased significantly in upper extremities Psych: Appropriate mood and affect IVs and Medications Medications Reviewed: Medications were reviewed in detail Lab and Diagnostics Result Diagram: 09/21/1643409/21/16434 X-Rays, CTs and MRIs Chest x-ray IMPRESSION: 1. Continued small right-sided pleural effusion and mild atelectasis. Superimposed pneumonia is difficult to exclude. 2. Unchanged right-sided PICC line catheter. Dictated by: Brendan Marley M.D. on 09/16/2016 at 8:09 PROCEDURE: US ABDOMEN IMPRESSION: 1. Increased hepatic echogenicity noted likely related to fatty infiltration of the liver but other sources of hepatocellular disease cannot be excluded. Recommend clinical correlation. 2. Solid left renal mass suspicious for underlying neoplasm. Recommend renal protocol CT for further assessment. 3. Small right pleural effusion. 4. Gallbladder sludge with mild thickened gallbladder wall. Developing cholecystitis cannot be excluded. Correlate clinically. Approved by: Rody Welch MD, PhD on 09/16/2016 at 21:49 PROCEDURE: US VENOUS ARM DUPLEX, BILATERAL IMPRESSION: Occlusive thrombus present within the right and left upper extremities. Marciano Walden telephoned with the results by the offensive coordinator at 1624 hrs. 09/16/2016. Approved by: Rody Welch MD, PhD on 09/16/2016 at 16:46 PROCEDURE: US VENOUS LEG DUPLEX BILATERAL IMPRESSION: No DVT found bilaterally. Approved by: Bryant Ramsey M.D. on 09/16/2016 at 17:18 Chest xray 09/21/2016: IMPRESSION: 1. Persistent small pleural effusions, bibasilar consolidation or atelectasis, and groundglass opacities consistent with pulmonary edema or pneumonia. Dictated by: Jb Enriquez M.D. on 09/21/2016 at 9:22 12-lead ECG EKG is low-voltage, rate in the 80s, QTC is 665 Cardiac Echo Impressions Echocardiogram Report Interpretation Summary The left ventricle is normal in size. Left ventricular systolic function is normal without focal wall motion abnormalities. The ejection fraction is estimated to be 65-70%. The right ventricle is normal in size and function. The right ventricular systolic pressure is estimated at 39 mmHg assuming a right atrial pressure of 8 mm Hg. Both atria are normal in size. There is moderate tricuspid regurgitation. There is no other significant valvular heart disease. The aortic root is normal size. There are moderate-sized bilateral pleural effusions noted. Reading Physician:PM Assessment & Plan 61-year-old female with extremely complicated course who presents emergency department with severe anemia of 6.5 with no obvious source of bleeding, as well as severe nutrient deficiency and lactic acidosis. Patient was discharged on Lovenox but did not refill (3 days off lovenox) Hypertension; ongoing -Patient's blood pressures are routinely above 150 -Lisinopril started on 09/20/2016. -continue metoprolol. -If BP remains elevated could try Carvedilol instead of metoprolol or, alternatively, increase Lisinopril. Acute hypoxic respiratory failure; present admission; ongoing -Oxygen requirement likely due to anemia. Increased oxygen requiements on . ABG was not concerning. -Chest xray 09/21: Persistent small pleural effusions, bibasilar consolidation or atelectasis, and groundglass opacities consistent with pulmonary edema or pneumonia Persistently elevated troponins: -Troponins continue to trend up. -Will consider cardiology consult. Anasarca secondary to protein deficiency/malnutrition; present on admission; ongoing -Patient presents with edema up to her sacrum with sparing of the abdomen; albumin of 1.3 on admission. No DVT on U/S. -She is status post PRBC's. -Albumin q12h Subacute liver abscesses; present on admission; ongoing -patient had hepatic abscesses following MRSA bacteremia. -ID seeing patient: continue daptomycin and ertapenem. -Procalcitonin 16 on 09/21. -Continue IV antibiotics per ID Acute blood loss anemia with macrocytosis and a mild elevated troponin; present admission; stable -Unknown source at this time with a questionable GI bleed; however, patient off Lovenox for 3 days at time of admission. -Reticulocyte count was 7.8 indicating that she is responding to this anemia, ruling out bone marrow suppression -Hemoccult 3 negative -Continue to monitor with CBC and transfuse as necessary. Left renal mass with reported capsule invasion; present on admission; stable -Diagnosed at [facility], however, unable to find biopsy results -Patient also had numerous thromboses and was placed on Lovenox, likely due to this mass -US at our facility showed: Solid left renal mass suspicious for underlying neoplasm. -Consulted urology and heme; appreciate their recommendations -More information in records from [facility] Hx of portal, mesenteric, and splenic vein thrombosis -Will continue heparin for the current time due to the severity of her prior thrombosis -Prothrombotic state likely second to renal cell carcinoma of the kidney Anion gap acidosis with elevated lactate; present admission; stable -Anion gap of 22 on admission with lactic acid of 4; patient also has a RTA. Lactic acid corrected. Anion gap correcting. -Following transfusions will assess fluid balance -Recheck tomorrow Hypomagnesemia; present admission; resolved: -Continue to follow mags. Right Pleural effusion; present admission; stable -Etiology unclear at this time; no known recent history of pneumonia; does have hepatic abscesses -Ultrasound on 09/16: Small right pleural effusion. -Chest x-ray pending on 09/21. Diabetes type II; present admission; resolved -Patient does not appear to be on any medications outpatient -A1c 5.5 -Stopped all insulin Chronic Severe protein-calorie Malnutrition; present admission; stable -Patient has been severely ill for 9 months at one point was on TPN -BMI > 16, however patient with anasarca; obvious underlying severe nutritional deficiency -Dietitian consult requested -Continue albumin infusion Healing abdominal wound from colectomy; present on admission; stable -Allowed healing through secondary from colectomy in March 2016 -Wound consult ordered Disposition: 1-2 days and then discharge home has patient does not wish to go to SNF. Order for social work evaluation for SNF. Pain Evaluation: Adequate Pain Control Resuscitation Status: CPR: Attempt Resuscitation Attending Statement The patient was seen and examined together with Dr. Powers on 09/21/2016 and I agree with the history, exam and plan as outlined in the note above. . Deny Powers DO Sep 21, 2016 08:53 David Belle MD Sep 22, 2016 18:19
--- NOTE | 2016-09-21 08:56 | PROG NOTE ---
[address] [address] PROGRESS NOTE PATIENT: HUNG JAMES : 1955 MR#: [id number] ADMIT: 09/16/2016 JOB ID: [id number] DATE: 09/21/2016 REASON FOR FOLLOWUP: Multiple overlapping problems including MRSA bacteremia with multiple abscess formation, COPD, renal malignancy, extensive clots including mesenteric, splenic, portal vein and both upper extremities. INTERVAL HISTORY: Overnight, the patient says in general she feels better. She has no fevers, no chills, no sweats. No real cough, but she is more short of breath and requiring somewhat more oxygen overnight. No nausea or vomiting. No problems with the colostomy. PHYSICAL EXAMINATION: Reveals a modestly short of breath woman lying supine in the hospital bed. She has been afebrile consistently. Temp now 37.4, pulse 80, respiratory rate 18, blood pressure 156/96. She is saturating well now on 4 L. She is awake and alert. Eyes with conjunctival pallor, but otherwise negative. Oral cavity with dry mucous membranes. Mask is in place. Lungs: Fine crackles diffusely. Cardiac tones: Regular rate and rhythm. Abdomen has a colostomy in place as well as a midline wound which looks uninfected. The abdomen itself is nontender. No skin rash noted. Yesterday's chest radiograph revealed small pleural effusions and some possible left-sided infiltrate that was a portable film, which is being repeated this morning. LABORATORIES: Include white count 9200, hematocrit actually increased a bit to 29, platelets 289. Creatinine 0.88, bilirubin 1.4, AST and ALT are both in single digits, albumin 4.3, procalcitonin continues to drop it was 100 on September 17 and is now down to 17. Hep B negative. HIV negative. Micro data includes negative follow up blood cultures on admission. A culture of the abdominal wound is negative and urine culture negative. Imaging was already discussed. IMPRESSION: This is an incredibly complicated case with multiple overlying medical problems. In general, she appears to be doing reasonably well today with exception of slightly increased oxygen requirements. There is no suggestion at this point that she is failing from an Infectious Disease point of view, and seems as if her infections are under reasonable control on this combination of antimicrobials. We discussed this case at the bedside with intensive care unit nursing team. Our plan today would be to get a repeat chest x-ray downstairs which will be PA and lateral to better assess her pulmonary function as to whether or not she might have a PE based upon her upper extremity DVTs it is certainly difficult to exclude, but the patient has been on therapeutic anticoagulation now for weeks which would seem to make this unlikely. It is certainly possible this patient has some unusual hypercoagulable state, which might not be fully neutralized by ongoing heparin drip, but this is unlikely, and I am not certain what else we would have to offer therapeutically if that were to be the case. RECOMMENDATIONS: 1. Will continue with daptomycin and ertapenem. 2. Will continue to use the left IJ access though we may need a more permanent access to continue IV antibiotics through the end of the month at least. 3. Will wait on the results of the chest x-ray PA and lateral today. 4. The need for a CT angiogram was discussed with the primary team. CT angiogram would be helpful in terms of ruling in or out PE, but would be associated with considerable risk with respect to renal function. I would be inclined to avoid it if at all possible as we are already treating the patient with heparin.
[2016-09-21] MEDS: Potassium Chloride 20 mEq SR Tablet PO SCH (09:13)
[2016-09-21] MEDS: Furosemide 10 mg/mL 2 mL Inj IVPUSH SCH (09:13)
[2016-09-21] MEDS: Ertapenem Inj 1,000 MG in 0.9% Sodium Chloride 50 ML IV SCH (09:13)
[2016-09-21] MEDS: Pantoprazole 40 mg ER24 Tablet PO SCH (09:14)
[2016-09-21] MEDS: Nystatin 100,000 Unit/Gm 15 Gm Powder TOPICAL PRN ×2 (09:14→22:05)
--- NOTE | 2016-09-21 09:41 | DRSVH ---
PROCEDURE: X-RAY CHEST, TWO VIEWS ([id number]) INDICATIONS: SOB TECHNIQUE: 2 views of the chest were acquired. COMPARISON: [facility], CR, XR CHEST 2VW, 09/20/2016, 17:38. FINDINGS: Surgical changes and devices: Left internal jugular catheter is stable in position with the tip at th e cavoatrial junction. Lungs and pleura: There are persistent small bilateral pleural effusions with bibasilar medial opaci ties consistent with consolidation or compressive atelectasis. There also confluent groundglass opac ities bilaterally, right greater than left, consistent with pulmonary edema or pneumonia. Mediastinum: Mediastinal contours are unchanged. Heart size is borderline enlarged. Bones and chest wall: No suspicious bony abnormalities. Soft tissues appear unremarkable. IMPRESSION: 1. Persistent small pleural effusions, bibasilar consolidation or atelectasis, and groundglass opaci ties consistent with pulmonary edema or pneumonia. Dictated by: Jb Enriquez M.D. on 09/21/2016 at 9:22 Approved by: Jb Enriquez M.D. on 09/21/2016 at 9:40
--- NOTE | 2016-09-21 10:49 | NUR ---
NUTRITION FOLLOW UP: ASSESS: 61 YO F admitted with severe anasarca in the setting of severe hypoalbuminemia (1.3) and severe malnutrition. Palliative care is involved for goals of care. She is on a general diet with variable PO intake of ~25-75%. Spoke with pt regarding her nutrition status and PO intake. Pt reports that she understands that she needs to eat to keep her strength up. She reported that she ate all of her breakfast, she was working on drinking an Ensure when spoke with her and she is planning on eating all of her lunch. Discussed eating smaller, more frequent meals when her appetite is down and tips for maximizing PO intake when she eats smaller amounts at a time. PMHx: Hx alcoholism (improved), probable chronic pancreatitis, pseudocysts, possible abscesses, osteoporosis, type 2 diabetes, HTN, R. hip fracture with replacement, colonic rupture, peritonitis, sepsis syndrome (current colostomy). DIET: General. PO intake 25-75% LABS: Reviewed. Glu 140, Ca 8.4, T.bili 1.4 MEDICATIONS: Reviewed. Lasix, tums, zofran GI: 600ml output via colostomy 09/20 SKIN: [place] 17 ANTHROPOMETRICS: Current Wt: 57.1 kg, BMI: 24.6 kg/m2. Admit weight: 58.6 kg, IBW: 45.5 kg ESTIMATED NEEDS (MALNUTRITION). Calories: 1715-2000kcal (30-35kcal/kg BW) Protein: 85-105 g protein (1.5-1.8 g/kg BW) NUTRITION DIAGNOSIS: 1) Severe pro/kcal malnutrition related to prolonged, complicated hospital admission history, as evidenced by severe anasarca, visible muscle/fat loss, likely renal cancer diagnosis.---PERSISTS. INTERVENTION: 1) Continue current diet and supplements as ordered. 2) Spoke with pt about high kcal/pro nutrition therapy. Discussed eating smaller, more frequent meals and tips to maximize pro/kcal intake when appetite is down. Provided high kcal/pro recipe book and high kcal/pro nutrition therapy handout. Pt verbalized understanding. MONITOR/EVALUATE: Diet tolerance, PO intake, wt, labs, GI/nutrition status. Follow per high nutrition risk guidelines.
--- NOTE | 2016-09-21 10:54 | NUR ---
Scheduled hospital follow up appointment ay [facility] for September 27 check in at 735Am for 750AM with Updated PATTERN CHANGER
--- NOTE | 2016-09-21 11:03 | NUR ---
Palliative Care Palliative Care received verbal order from Dr Belle 09/21/16 to assist with goals of care. Patient was admitted 09/16/16. Recently she has been living in a 5th wheel with her . Karthik Modi () [phone] Josue Song (friend) [phone] Palliative Care to follow. Martha Hodge
[2016-09-21] MEDS ORDERED: Furosemide 10 mg/mL 10 mL Inj IVPUSH ONE (11:30)
--- NOTE | 2016-09-21 11:56 | DRSVH ---
PROCEDURE: X-RAY CHEST, TWO VIEWS ([id number]) INDICATIONS: SHORT OF BREATH/hypoxia TECHNIQUE: 2 views of the chest were acquired. COMPARISON: [facility], CR, XR CHEST 1VW (PORTABLE), 09/19/2016, 4:07. FINDINGS: Surgical changes and devices: Stable positioning of left IJ CVL. Lungs and pleura: Small bibasilar pleural effusions are present and there is diffuse, widespread bila teral interstitial and airspace opacities. No pneumothorax. Mediastinum: Mediastinal contours are normal. Heart size is normal. Bones and chest wall: No suspicious bony abnormalities. Soft tissues appear unremarkable. IMPRESSION: 1. Small bibasilar pleural effusions redemonstrated and widespread pulmonary opacities suggesting pul monary edema and/or diffuse bilateral pneumonia. Dictated by: [facility] [place] [facility] Interpreted: Elie Blunt MD on 09/21/2016 at 8:37 Approved by: Elie Blunt M.D. on 09/21/2016 at 11:55
[2016-09-21] MEDS ORDERED: Furosemide 10 mg/mL 2 mL Inj IV ONE (12:15)
--- NOTE | 2016-09-21 17:01 | PCM.CONPAL ---
Date of Service Sep 21, 2016 Date of Hospital Admission: Sep 16, 2016 at 10:52 Date of Palliative Consult: Sep 21, 2016 Requesting Provider: Jude Walden DO Reason Palliative Care Consult: Goals of Care Discussion Hospital Unit @time of consult: Critical Care Palliative Care Recommendation Summary of palliative recommendations: -Symptom management (Pain/other) Dyspnea-suspect baseline COPD but with bilateral pleural effusions. She may get benefit from tap History of severe constipation and obstipation to the point of colonic rupture most likely from narcotics. Edema etiology unclear unless this is the result of thrombus in mesentery Sepsis- MRSA- managed by Dr. Sampson. Chronic dysphagia-unknown if had EGD Probable RCCA-not a surgical candidate at this time. Reviewed consideration for recheck CT in 3 months Reviewed potential for fast or slow growth. Reviewed need to review goals of care regularly radha if liver abscesses not clearing or if RCCA begins to grow. -DPOA/Advanced Directives/POLST-- patient requests full code. She and her have completed no paper work such as AD or DPOAHC-reviewed. 1st- Karthik, ([phone] and 2nd would be his sister JESUS (APL) [phone] -Family/emotional support-seems like good support from -Spiritual support-not addressed Additional Medical Diagnoses with primary management by Hospitalist team include : Sepsis syndrome Anemia-transfused Hx AUD-has now been without for less than 1 yr HTN Problems: End of Life Preferences wants FULL CODE but does not want to be sustained if poor prognosis Goals of Care Wants aggressive treatment everything that is treatable. Does not want to be maintained if not good prognosis or if not good outcome for brain. Encouraged completion of AD/DPOAHC Disposition Will need management to include weeks of antibiotics. Profound weakness ? if would benefit from a SNF Resuscitation Status Resuscitation Status: CPR: Attempt Resuscitation POLST Updates/Changes Previous POLST?: No POLST Discussed with: Patient . Advanced Care Planning Address: Durable Power of Mine Geologist (reviewed but not completed) Symptom management: Nausea, Dyspnea, Pain Pt History History of Present Illness 61-year-old female who is recently discharged from [facility] 2 days ago presents to the emergency department due to increased swelling in her lower extremities and worsening weakness has been persistent since discharge. Patient has an extremely complicated course as she has had 2 stays at [facility]. Initially started in the fall of 2016 when the patient had a fall fractured her right hip. She had surgical repair and "rehabed myself". 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 In Feb she became constipated and uncomfortable which did not respond to lax. She states she sought medical attn but nothing was done. She was then seen with colonic rupture second obstipation likely due from pain management. Patient underwent colectomy and new ostomy and remained in the hospital for 3 weeks including a prolonged stay in the ICU on a ventilator. At that time she required TPN and developed acute kidney injury. In August the patient again presented to [facility] with increased abdominal pain and vomiting was found to have an MRSA hx with sepsis. She underwent complete workup including SANDI which was negative for valvular involvement, however it was noted that she has intrahepatic abscess is likely due to the MRSA as well as questionable pancreatic abscesses. 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 Since this admission she has been on Lovenox. That time she was also diagnosed with a left 6 cm renal mass which has yet to be worked up. She and her state that she also developed her fluid retention with anasarca starting only a few weeks ago. With this she gained 30+#. With this she has developed increasing SOB when she could only walk feet where before she could walk in [employer]-to get SOB. She denies orthopnea/PND. She was noted to be anemic and has a hx of HTN Eval noted thrombosis UE and mesenteric, profound anemia and anasarca/aleksandr pleural effusions. She states only SOB for few days. 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 Living Situation: lives with in 5th [place] at [facility] Responsive Patient Symptoms Tiredness/Fatigue: Moderate Depression: Moderate Drowsiness/Sleepiness: Moderate Anorexia: Moderate Shortness of Breath: Moderate Other profound edema, thinning hair Palliative Performance Scale PPS Patient Status: Current PPS Ambulation: Reduced PPS Activity: Unable to do most activity PPS Self-Care: 2 person assist PPS Intake: Normal or reduced PPS Conscious Level: Full Performance Scale: 70% Allergy Allergies Reviewed: Yes Medications Current Medications: Current Medications Potassium Chloride 20 meq DAILYWM PO Last administered on 09/21/16 09:13; Admin Dose 20 MEQ; Start 09/20/16 at 08:00 Lisinopril 10 mg DAILY PO Last administered on 09/21/16 09:14; Admin Dose 10 MG ; Start 09/20/16 at 16:05 Nystatin 500,000 unit PCHS PO Last administered on 09/21/16 08:30; Admin Dose 500,000 UNIT; Start 09/21/16 at 08:30 Nystatin 1 applic BID PRN TOPICAL Last administered on 09/21/16 09:14; Admin Dose 1 APPLIC; Start 09/21/16 at 02:50 Dronabinol 2.5 mg DAILY PO Last administered on 09/21/16 11:35; Admin Dose 2.5 MG; Start 09/21/16 at 11:35 Furosemide 20 mg 20 mg DAILY IVPUSH; Start 09/22/16 at 08:30 Albumin Human/ Premix 100 ml @ 1 mls/min Q12H IV; Start 09/21/16 at 16:30; Status UNV Scheduled Calcium Citrate (Calcium Citrate) 200 Mg Tablet 200 MG PO BID Daptomycin (Daptomycin) 500 Mg Vial 470 MG IV DAILY Enoxaparin (Lovenox) 60 Mg/0.6 Ml Syringe 60 MG SUBQ BID Ertapenem Sodium (Invanz) 1 Gm Vial.port 1 GM IV DAILY Insulin Aspart (NovoLOG U-100 Pen) 100 Unit/Ml Insuln.pen 0-6 UNITS SC TIDAC bg <100= 0 units bg 100-199= 2 units bg 200-299= 4 units bg >300= 6 units Magnesium Oxide (Magnesium Oxide) 400 Mg Tablet 400 MG PO TID Mirtazapine (Mirtazapine) 15 Mg Tablet 15 MG PO DAILY Multivitamin W-Minerals/Lutein (Pub Multivitamin 50 Plus Tab) 1 Each Tablet 1 EACH PO DAILY Pantoprazole DR (Pantoprazole DR) 40 Mg Tablet.dr 40 MG PO BID Potassium Chloride (Potassium Chloride) 20 Meq Tab.er.prt 20 MEQ PO DAILY TAKE WITH FOOD Sodium Bicarbonate (Sodium Bicarbonate) 650 Mg Tablet 650 MG PO TID Scheduled PRN Acetaminophen (Acetaminophen) 325 Mg Capsule 650 MG PO q4 PRN PRN For Pain Omeprazole (Omeprazole) 20 Mg Capsule.dr 20 MG PO DAILY PRN PRN For Dyspepsia or Heartburn Ondansetron (Ondansetron) 4 Mg Tablet 4 MG PO Q6H PRN PRN For Nausea Polyethylene Glycol 3350 (Miralax) 17 Gm Powd.pack 17 GM PO DAILY PRN PRN For Constipation Tramadol (Tramadol) 50 Mg Tablet 50 MG PO Q6H PRN PRN For Pain Objective Findings Exam Vital Sign - Last Date Time Temp Pulse Resp B/P Pulse Ox O2 Delivery O2 Flow Rate FiO2 09/21/16 14:56 20 94 Nasal Cannula 6.00 09/21/16 12:38 36.8 89 170/91 Intake and Output 09/20/16 09/20/16 09/21/16 Cumulative From/Thru 15:00 23:00 07:00 09/16/16 07:16 - 09/21/16 06:05 Intake Total 1101 ml 512 ml 95806 ml Output Total 1050 ml 550 ml 77115 ml Balance 51 ml -38 ml -2308 ml Intake Oral 390 ml 240 ml 5385 ml IV Total 711 ml 272 ml 4612 ml Packed Cells 1145 ml Output Urine Total 650 ml 400 ml 48658 ml Stool Total 400 ml 150 ml 1150 ml Estimated Blood Loss 400 ml # Bowel Movements 0 General: Alert/Oriented x3, Mild distress (shortness of breath with speaking), Anxious (occasionally tearful) HEENT: PERRLA, EOMI, Scleral Anicteric, Other (full dentures, extremely thin, fine hair) Heart: Regular Rate/Rhythm Lungs: Normal Air Movement, Tachypneic Abdomen: Soft Neuro: Cranial Nerve 3-12 Intact, Other (patient and her communicate through humor, is either pacing or watching the TV) Extremities: Edema (2+) Lab/Diagnostics Lab and Imaging results reviewed in detail in EMR. Normal BMP hemoglobin 9.2 WBC 9.2, pro calcitonin on admit was 100, albumin 4.3 Patient/Family Conference Members Present Family Members Present Patient and Karthik Medical Team Members PresentLeonard BERMAN Discussion/Goals of Care Discussion FAMILY UNDERSTANDING OF DISEASE: Patient acknowledges being overwhelmed with chronicity of disease starting last November. Based on usual response from hip fracture she should have been completely independent in walking but of note is she was still using a walker. Multiple complications including colonic rupture and need of diverting colostomy -possibly due to pain medications at that time. Then diagnosis of presumed renal cell CA no tissue. Patient and prefer not to engage this. She agrees with Dr. Porras that she is not strong enough to undergo surgery She defines herself as a positive person Anasarca etiology unclear. Her albumin is now in normal range and has never been really low. Her echocardiogram does not know to right-sided failure. She does not have evidence of nephrotic syndrome although proteinuria at 1647. She is receiving furosemide to diurese Patient become briefly overwhelmed about the multitude of dx and illnesses Ex smoker but no diagnosis of COPD DISEASE PROGRESSION/EVIDENCE OF DECLINE: Multiple medical illnesses now with MRSA sepsis and hepatic abscesses-followed by Dr. Sampson SYMPTOM BURDEN-- GOALS: Her primary goal is to get out of the hospital be at home and they are a [place] [facility] HOPES/WORRIES: Patient hopes that she can recover from present MRSA sepsis and liver abscesses Palliative Care counselled: Patient tearful but denies depression Ex smoker suspected COPD Left renal mass presumed RCCA -- reviewed usual follow-up on this with repeat CT in approximately 3 months. This should be guided by PCP or Dr. Jerrod Porras of urology Time spent Total time 50 minutes; >50% face to face with patient and/or family, providing counselling regarding plans and recommendations, and in care coordination with his/her medical teams. majority of visit in F2F with pt and . Will follow up WRT paperwork tomorrow. I also spent an additional [ ] minutes counseling for advanced care planning with the patient/the patients family/the surrogate decision maker. copies to: Syed Terrell MD; Rody Porras MD, Deborah A MD Sep 21, 2016 17:01
[2016-09-22] VITALS (9 sets, daily range): BP systolic 150–175; BP diastolic 81–97; PULSE 85–94; RESP 18–28; O2SAT 92–95
[2016-09-22] MEDS: Heparin 25K Unit/500mL 0.45 NS 25,000 UNIT in IV Premix 1 EACH IV SCH (00:59)
[2016-09-22] MEDS: Albumin 25% 25 GM in IV Premix 1 EACH IV SCH ×2 (03:52→17:09)
[2016-09-22 05:10] LABS: dRVVT 60.3 sec (0.0-47.0)
--- NOTE | 2016-09-22 06:05 | NUR ---
Confusion: Pt noted to have periods of confusion during the night. Episodes of the pt not knowing what time of day to simply making odd comments that are not relevant or appropriate to the situation. Pt remains safe. Will cont. to monitor and update oncoming staff.
[2016-09-22 07:02] LABS: BASOPHILS % (AUTO) 0.4 % (0-3); EOSINOPHILS % (AUTO) 1.1 % (0-5); MONOCYTES % (AUTO) 7.4 % (4-12); Mean Corpuscular Hemoglobin 30.8 pg (27.0-35.0); Mean Corpuscular Volume 97.7 fL (81-100); NEUTROPHILS % (AUTO) 71.6 % (40-74); Platelet Count 339 bil/L (150-400)
[2016-09-22 08:06] LABS: TROPONIN T 0.201 ug/L (0.0-0.011)
[2016-09-22] MEDS: DAPTOmycin Inj 500 MG in 0.9% Sodium Chloride 50 ML IV SCH (08:55)
[2016-09-22] MEDS: Ertapenem Inj 1,000 MG in 0.9% Sodium Chloride 50 ML IV SCH (08:55)
[2016-09-22] MEDS: Furosemide 10 mg/mL 2 mL Inj IVPUSH SCH (08:56)
[2016-09-22] MEDS: Nystatin 100,000 Unit/mL 5 mL Suspension PO SCH ×4 (08:56→22:30)
[2016-09-22] MEDS: Potassium Chloride 20 mEq SR Tablet PO SCH (08:59)
[2016-09-22] MEDS: Pantoprazole 40 mg ER24 Tablet PO SCH (08:59)
[2016-09-22] MEDS ORDERED: 0.9% Sodium Chloride 250 ML ONE ×2 (09:08)
[2016-09-22] MEDS: Ondansetron 2 mg/mL 2 mL Inj IVPUSH PRN (09:13)
--- NOTE | 2016-09-22 09:44 | PCM.PNMED ---
Subjective Date of Service Sep 22, 2016 Subjective This is a 61 year old female with a series of unfortunate events that began with a fall in 2016 which led to a right hip fracture and total hip replacement. She then had severe obstipation which led to colonic rupture. She developed MRSA sepsis with microabscess on liver as well as multiple sites of thrombosis including portal vein and mesenteric vein. She was incidentally found to have a renal mass which is thought to be probable renal cell carcinoma. Overnight patient patient reports she did well. She was on 5 liters O2 by NC which is a decrease.. Other then shortness of breath she denies any other issues. Exam Vital Signs Vital Sign - Last Date Time Temp Pulse Resp B/P Pulse Ox O2 Delivery O2 Flow Rate FiO2 09/22/16 08:51 37.0 94 24 162/97 92 Nasal Cannula 4.00 Intake and Output 09/21/16 09/21/16 09/22/16 Cumulative From/Thru 15:00 23:00 07:00 09/16/16 07:16 - 09/22/16 06:48 Intake Total 900 ml 945 ml 43898 ml Output Total 1500 ml 750 ml 18063 ml Balance -600 ml 195 ml -2713 ml Intake Oral 900 ml 200 ml 6485 ml IV Total 745 ml 5357 ml Packed Cells 1145 ml Output Urine Total 1250 ml 675 ml 75992 ml Stool Total 250 ml 75 ml 1475 ml Estimated Blood Loss 400 ml # Bowel Movements 0 Exam General: Appears chronically ill; no acute distress; Cardiac: Regular rate and rhythm, decreased auscultation, no murmurs Respiratory: CTA bilaterally. Abdomen: Secondary intention ulcer healing, ostomy is active and appropriate. Nontender. Extremities: limbs warm; +1 pitting edema in lower extremities and decreased significantly in upper extremities Psych: Appropriate mood and affect IVs and Medications Medications Reviewed: Medications were reviewed in detail Lab and Diagnostics Result Diagram: 09/22/16 0650 09/22/16 0650 X-Rays, CTs and MRIs Chest x-ray IMPRESSION: 1. Continued small right-sided pleural effusion and mild atelectasis. Superimposed pneumonia is difficult to exclude. 2. Unchanged right-sided PICC line catheter. Dictated by: Brendan Marley M.D. on 09/16/2016 at 8:09 PROCEDURE: US ABDOMEN IMPRESSION: 1. Increased hepatic echogenicity noted likely related to fatty infiltration of the liver but other sources of hepatocellular disease cannot be excluded. Recommend clinical correlation. 2. Solid left renal mass suspicious for underlying neoplasm. Recommend renal protocol CT for further assessment. 3. Small right pleural effusion. 4. Gallbladder sludge with mild thickened gallbladder wall. Developing cholecystitis cannot be excluded. Correlate clinically. Approved by: Rody Welch MD, PhD on 09/16/2016 at 21:49 PROCEDURE: US VENOUS ARM DUPLEX, BILATERAL IMPRESSION: Occlusive thrombus present within the right and left upper extremities. Marciano Walden telephoned with the results by the staff technologist at 1624 hrs. 09/16/2016. Approved by: Rody Welch MD, PhD on 09/16/2016 at 16:46 PROCEDURE: US VENOUS LEG DUPLEX BILATERAL IMPRESSION: No DVT found bilaterally. Approved by: Bryant Ramsey M.D. on 09/16/2016 at 17:18 Chest xray 09/21/2016: IMPRESSION: 1. Persistent small pleural effusions, bibasilar consolidation or atelectasis, and groundglass opacities consistent with pulmonary edema or pneumonia. Dictated by: Jb Enriquez M.D. on 09/21/2016 at 9:22 12-lead ECG EKG is low-voltage, rate in the 80s, QTC is 665 Cardiac Echo Impressions Echocardiogram Report Interpretation Summary The left ventricle is normal in size. Left ventricular systolic function is normal without focal wall motion abnormalities. The ejection fraction is estimated to be 65-70%. The right ventricle is normal in size and function. The right ventricular systolic pressure is estimated at 39 mmHg assuming a right atrial pressure of 8 mm Hg. Both atria are normal in size. There is moderate tricuspid regurgitation. There is no other significant valvular heart disease. The aortic root is normal size. There are moderate-sized bilateral pleural effusions noted. Reading Physician:PM Assessment & Plan 61-year-old female with extremely complicated course who presents emergency department with severe anemia of 6.5 with no obvious source of bleeding, as well as severe nutrient deficiency and lactic acidosis. Patient was discharged on Lovenox but did not refill (3 days off lovenox) Hypertension; ongoing -Patient's blood pressures are routinely above 150 -Lisinopril 20mg daily. -continue metoprolol. -If BP remains elevated could try Carvedilol instead of metoprolol. Acute hypoxic respiratory failure; present admission; ongoing -Oxygen requirement likely due to anemia. Increased oxygen requirements on which have since stabilized but not improved. ABG was not concerning on . -Chest xray 09/21: Persistent small pleural effusions, bibasilar consolidation or atelectasis, and groundglass opacities consistent with pulmonary edema or pneumonia. -Pleural ultrasound ordered. -Lasix 60mg given 09/22 -Pulmonology consulted. Persistently elevated troponins: -Troponins have now stabilized. -Will consider cardiology consult. Hypokalemia, not present on admission, ongoing: -On 09/22 potassium 2.9. -Replace with 80meq. Repeat potassium in am. Anasarca secondary to protein deficiency/malnutrition; present on admission; ongoing -Patient presents with edema up to her sacrum with sparing of the abdomen; albumin of 1.3 on admission. No DVT on U/S. -She is status post PRBC's. -Albumin q12h. -Lasix 20mg daily. Additional Lasix 40mg given on 09/22. Subacute liver abscesses; present on admission; ongoing -patient had hepatic abscesses following MRSA bacteremia. -ID seeing patient: continue daptomycin and ertapenem. -Procalcitonin down trending.. -Continue IV antibiotics per ID Acute blood loss anemia with macrocytosis and a mild elevated troponin; present admission; stable -Unknown source at this time with a questionable GI bleed; however, patient off Lovenox for 3 days at time of admission. -Reticulocyte count was 7.8 indicating that she is responding to this anemia, ruling out bone marrow suppression -Hemoccult 3 negative -Continue to monitor with CBC and transfuse as necessary. Left renal mass with reported capsule invasion; present on admission; stable -Diagnosed at [facility], however, unable to find biopsy results -Patient also had numerous thromboses and was placed on Lovenox, likely due to this mass -US at our facility showed: Solid left renal mass suspicious for underlying neoplasm. -Consulted urology and heme; appreciate their recommendations -More information in records from [facility] Hx of portal, mesenteric, and splenic vein thrombosis -Prothrombotic state likely secondary to renal cell carcinoma of the kidney -Switched Heparin to Lovenox on 09/22. Anion gap acidosis with elevated lactate; present admission; stable -Anion gap of 22 on admission with lactic acid of 4; patient also has a RTA. Lactic acid corrected. Anion gap correcting. -Following transfusions will assess fluid balance -Recheck tomorrow Hypomagnesemia; present admission; resolved: -Contine to replace mag as needed. Right Pleural effusion; present admission; stable -Etiology unclear at this time; no known recent history of pneumonia; does have hepatic abscesses -Ultrasound on 09/16: Small right pleural effusion. -Pleural ultrasound ordered. -Pulmonary consult pending. Diabetes type II; present admission; resolved -Patient does not appear to be on any medications outpatient -A1c 5.5 -Stopped all insulin Chronic Severe protein-calorie Malnutrition; present admission; stable -Patient has been severely ill for 9 months at one point was on TPN -BMI > 16, however patient with anasarca; obvious underlying severe nutritional deficiency -Dietitian consult requested -Continue albumin infusion -Marinol added. Healing abdominal wound from colectomy; present on admission; stable -Allowed healing through secondary from colectomy in March 2016 -Wound consult ordered Disposition: 1-2 days and then discharge home as patient does not wish to go to SNF. Resuscitation Status: CPR: Attempt Resuscitation Attending Statement The patient was seen and examined together with Dr. Powers on 09/22/2016 and I agree with the history, exam and plan as outlined in the note above. . Deny Powers DO Sep 22, 2016 09:44 David Belle MD Sep 22, 2016 18:21
[2016-09-22] MEDS ORDERED: KCl 40 mEq/D5W 500 mL 40 MEQ in IV Premix 500 EACH IV ONE (09:45)
[2016-09-22] MEDS ORDERED: [UNRECOGNIZED DRUG - OTHER] IV ONE (09:50)
[2016-09-22] MEDS ORDERED: MAGNESIUM SULF IV ONE (09:50)
[2016-09-22] MEDS ORDERED: KCl 40 mEq/100 mL (CENTRAL) 40 MEQ in IV Premix 1 EACH IV ONE (09:50)
--- NOTE | 2016-09-22 10:07 | PROG NOTE ---
[address] [address] PROGRESS NOTE PATIENT: HUNG JAMES : 1955 MR#: [id number] ADMIT: 09/16/2016 JOB ID: [id number] DATE: 09/22/2016 INFECTIOUS DISEASE FOLLOW UP NOTE: REASON FOR FOLLOWUP: MRSA bacteremia, multiple micro abscesses, hypercoagulable state, COPD, anemia. INTERVAL HISTORY: Overnight the patient has been relatively stable. She has baseline shortness of breath and is currently requiring 3-4 L by nasal prongs to keep her O2 sats up. She says she has minimal cough and notes that she is chronically somewhat short of breath. No chest pain. She also notes she is anorexic and diffusely quite weak. No other new symptoms are noted. PHYSICAL EXAMINATION: Reveals a chronically ill-appearing woman who is afebrile, temperature 37, pulse 94, respiratory rate 24, blood pressure 162/97. She is on 3-4 L and saturating in the low 90s. She overall does not appear any different than she has in the past couple days. No conjunctivitis. The conjunctivae are somewhat pale. Oral cavity without change. Lungs: Decreased breath sounds at the bases and some scattered crackles. Cardiac tones: No new murmurs are noted. Abdomen with a midline wound which is slowly healing. Colostomy is present but essentially nontender. No new skin rash also. LABORATORIES: Include a white count 10,000, normal differential. Creatinine is 0.82. Bilirubin 1.3. Procalcitonin is dropping quite dramatically. It went from 100 five days ago and is now down to 8, so more than 90% drop which in the literature is considered to be quite significant. Culture mendoza we have no positive blood cultures from this admission. IMAGING: Includes a chest x-ray that was done yesterday. It shows persistent small pleural effusions with some atelectasis and ground glass opacities which could be consistent with pulmonary edema or pneumonia by the radiologist's report. IMPRESSION: 1. This is an extremely complex case of a patient with multiple medical problems. The ID issue here is primarily MRSA bacteremia following colonic rupture which occurred back in March and multiple attendant complications in a patient with underlying cardiac as well as pulmonary disease. At this point, it would seem that her infections are under control, though it is a bit difficult to tell. Recall that she does have clots in both upper extremities as well as her splenic, mesenteric and portal veins and she remains on therapeutic anticoagulation. There has been discussion in the chart about whether we should look for pulmonary emboli with a CT scan, though I am not certain that the benefit of finding this out would justify the risk in a patient who is already being therapeutically anticoagulated. RECOMMENDATIONS: 1. Continue with daptomycin and ertapenem. 2. Will continue to use the temporary left IJ line. 3. Whether or not a new central line should be installed in this patient is unclear as there are tentative plans to continue with antibiotics only through October 08 and perhaps we could continue to use the IJ until that time. 4. The patient has told me forcefully that she does not want to be transferred to a senior care facility or rehabilitation. She has also told the palliative team that she wishes to be considered a FULL CODE in spite of her cardiac and pulmonary problems as well as underlying liver disease and unresected renal cell carcinoma. STUART
[2016-09-22] MEDS ORDERED: Furosemide 10 mg/mL 4 mL Inj IVPUSH ONE (11:55)
--- NOTE | 2016-09-22 18:27 | NUR ---
Mentation changes Pt continued to become increasingly confused at beginning of shift. Pt reporting hallucinations, oriented X1-2, restless. MD made aware who came and assessed Pt before ordering a one time dose of 12.5mg PO seroquel, Pt's at bedside updated by MD, Pt received seroquel with minimal results. Pt remained disoriented/confused/hallucinating for remainder of shift, MD updated.
[2016-09-22] MEDS: Nystatin 100,000 Unit/Gm 15 Gm Powder TOPICAL PRN (21:02)
[2016-09-23] VITALS (10 sets, daily range): BP systolic 156–182; BP diastolic 86–103; PULSE 80–110; RESP 20–30; O2SAT 91–97
--- NOTE | 2016-09-23 01:17 | DRSVH ---
PROCEDURE: US CHEST/PLEURAL SONOGRAM INDICATIONS: SOB COMPARISON: [facility], CR, XR CHEST 2VW, 09/21/2016, 8:52. [facility], US, US CHEST PLEURAL, 09/16/2016, 15:51. FINDINGS: Moderate right pleural effusion and no left pleural effusion seen. IMPRESSION: Moderate right pleural effusion. Dictated by: Ben AVILEZ Interpreted: Chula Fortune MD on 09/22/2016 at 14:07 Approved by: Chula Fortune M.D. on 09/23/2016 at 1:16
[2016-09-23] MEDS: Albumin 25% 25 GM in IV Premix 1 EACH IV SCH (04:39)
[2016-09-23 05:11] LABS: BASOPHILS % (AUTO) 0.3 % (0-3); EOSINOPHILS % (AUTO) 1.3 % (0-5); Mean Corpuscular Hemoglobin 31.2 pg (27.0-35.0); Mean Corpuscular Volume 96.8 fL (81-100); NEUTROPHILS % (AUTO) 69.1 % (40-74); Platelet Count 368 bil/L (150-400)
--- NOTE | 2016-09-23 05:17 | NUR ---
P: delirium I: reorientation E: Drowsy. Oriented to self only. Denies pain, dyspnea, N/V. Restless. Swings legs over EOB. Pulls off NC. Calls out for . Unable to follow cues. Minimally allows oral care. Unable to follow cues to use incentive spirometer or flutter valve. Tylenol given in attempt to help with restlessness. Pt falling asleep and restless times are shorter and less. RA sats = 84%. 4L NC, sats 92-95%. High BP. Afebrile. Tele SR. Good UOP.
[2016-09-23 05:52] LABS: Magnesium 2.3 mg/dL (1.6-2.6)
[2016-09-23] MEDS ORDERED: KCl 40 mEq/100 mL (CENTRAL) 40 MEQ in IV Premix 1 EACH IV ONE (06:25)
[2016-09-23] MEDS: Potassium Chloride 20 mEq SR Tablet PO SCH (08:00)
--- NOTE | 2016-09-23 08:17 | ABG ---
DateTimeAnalyzed 08:10:07 -_ pH ____7.543 - 7.350 7.450 pCO2 ___31.3__ -mmHg 35.0 45.0 pO2 ___56.9__ -mmHg 69.0 116 HCO3- ___27.0__ -mmol/L 22.0 26.0 ABE ____4.1__ -mmol/L tHb ____9.2__ -g/dL O2Hb ___91.1__ -% COHb ____1.7__ -% 1.5 MetHb ____0.0__ -% sO2 ___92.4__ -% FIO2 ___21.0__ -% Drawn By AS - Date/Time Notified____ 08:16:00 -_ Liter_Flow ____2.00_ -L/min Oxygen Device 1 __CANNULA - Notified By btl - Notified Whom ___Dr. Walden - K+ ____2.7__ -mmol/L tO2 ___11.9__ -Vol% Jesse test N/A -
[2016-09-23] MEDS: Furosemide 10 mg/mL 2 mL Inj IVPUSH SCH (08:27)
[2016-09-23] MEDS: DAPTOmycin Inj 500 MG in 0.9% Sodium Chloride 50 ML IV SCH (08:27)
[2016-09-23] MEDS: Nystatin 100,000 Unit/mL 5 mL Suspension PO SCH ×4 (08:30→22:02)
[2016-09-23] MEDS: Pantoprazole 40 mg ER24 Tablet PO SCH (08:41)
[2016-09-23] MEDS: Nystatin 100,000 Unit/Gm 15 Gm Powder TOPICAL PRN (08:41)
[2016-09-23] MEDS: Ertapenem Inj 1,000 MG in 0.9% Sodium Chloride 50 ML IV SCH (09:16)
--- NOTE | 2016-09-23 10:16 | PCM.PNMED ---
Subjective Date of Service Sep 23, 2016 Subjective This is a 61 year old female with a series of unfortunate events that began with a fall in 2016 which led to a right hip fracture and total hip replacement. She then had severe obstipation which led to colonic rupture. She developed MRSA sepsis with microabscess on liver as well as multiple sites of thrombosis including portal vein and mesenteric vein. She was incidentally found to have a renal mass which is thought to be probable renal cell carcinoma. Overnight patient has been alert although confused. She was also tachypneic. Nursing reported no other issues.. She is currently on 4 liters O2 by [place] which is a decrease.. Exam Vital Signs Vital Sign - Last Date Time Temp Pulse Resp B/P Pulse Ox O2 Delivery O2 Flow Rate FiO2 09/23/16 08:22 36.8 85 20 171/90 93 Nasal Cannula 4.00 Intake and Output 09/22/16 09/22/16 09/23/16 Cumulative From/Thru 15:00 23:00 07:00 09/16/16 07:16 - 09/23/16 06:28 Intake Total 1432 ml 365 ml 95072 ml Output Total 2750 ml 3250 ml 83233 ml Balance -1318 ml -2885 ml -6916 ml Intake Oral 560 ml 0 ml 7045 ml IV Total 872 ml 365 ml 6594 ml Packed Cells 1145 ml Output Urine Total 2400 ml 3100 ml 07099 ml Stool Total 350 ml 150 ml 1975 ml Estimated Blood Loss 400 ml # Bowel Movements 0 Exam General: Appears chronically ill; no acute distress; Cardiac: Regular rate and rhythm, decreased auscultation, no murmurs Respiratory: Crackles right base up to mid-lung. Otherwise clear. Abdomen: Secondary intention ulcer healing, ostomy is active and appropriate. Nontender. Extremities: limbs warm; +1 pitting edema in lower extremities and decreased significantly in upper extremities Psych: Patient is alert but oriented only to person and not place or time. IVs and Medications Medications Reviewed: Medications were reviewed in detail Lab and Diagnostics Result Diagram: 09/23/16 0500 09/23/16 0500 X-Rays, CTs and MRIs Chest x-ray IMPRESSION: 1. Continued small right-sided pleural effusion and mild atelectasis. Superimposed pneumonia is difficult to exclude. 2. Unchanged right-sided PICC line catheter. Dictated by: Brendan Marley M.D. on 09/16/2016 at 8:09 PROCEDURE: US ABDOMEN IMPRESSION: 1. Increased hepatic echogenicity noted likely related to fatty infiltration of the liver but other sources of hepatocellular disease cannot be excluded. Recommend clinical correlation. 2. Solid left renal mass suspicious for underlying neoplasm. Recommend renal protocol CT for further assessment. 3. Small right pleural effusion. 4. Gallbladder sludge with mild thickened gallbladder wall. Developing cholecystitis cannot be excluded. Correlate clinically. Approved by: Rody Welch MD, PhD on 09/16/2016 at 21:49 PROCEDURE: US VENOUS ARM DUPLEX, BILATERAL IMPRESSION: Occlusive thrombus present within the right and left upper extremities. Marciano Walden telephoned with the results by the principal web developer at 1624 hrs. 09/16/2016. Approved by: Rody Welch MD, PhD on 09/16/2016 at 16:46 PROCEDURE: US VENOUS LEG DUPLEX BILATERAL IMPRESSION: No DVT found bilaterally. Approved by: Bryant Ramsey M.D. on 09/16/2016 at 17:18 Chest xray 09/21/2016: IMPRESSION: 1. Persistent small pleural effusions, bibasilar consolidation or atelectasis, and groundglass opacities consistent with pulmonary edema or pneumonia. Dictated by: Jb Enriquez M.D. on 09/21/2016 at 9:22 12-lead ECG EKG is low-voltage, rate in the 80s, QTC is 665 Cardiac Echo Impressions Echocardiogram Report Interpretation Summary The left ventricle is normal in size. Left ventricular systolic function is normal without focal wall motion abnormalities. The ejection fraction is estimated to be 65-70%. The right ventricle is normal in size and function. The right ventricular systolic pressure is estimated at 39 mmHg assuming a right atrial pressure of 8 mm Hg. Both atria are normal in size. There is moderate tricuspid regurgitation. There is no other significant valvular heart disease. The aortic root is normal size. There are moderate-sized bilateral pleural effusions noted. Reading Physician:PM Additional Diagnostics Pleural ultrasound on 09/22/2014: IMPRESSION: Moderate right pleural effusion. Dictated by: Ben Everett [facility] Interpreted: Chula Fortune MD on 09/22/2016 at 14:07 Assessment & Plan 61-year-old female with extremely complicated course who presented to the emergency department with severe anemia of 6.5 with no obvious source of bleeding, as well as severe nutrient deficiency and lactic acidosis. Hypertension; ongoing -Patient's blood pressures are routinely above 150 -Lisinopril 20mg daily. -continue metoprolol. -If BP remains elevated could try Carvedilol instead of metoprolol. Acute hypoxic respiratory failure; present admission; ongoing -Oxygen requirement likely due to anemia. Increased oxygen requirements on which have since stabilized but not improved. ABG on 09/23 showed: ph 7.543 , Co2 31, Po2 56.9, HCO3 27. -Chest xray 09/21: Persistent small pleural effusions, bibasilar consolidation or atelectasis, and groundglass opacities consistent with pulmonary edema or pneumonia. -Pleural ultrasound on 09/22/2016 showed moderate right effusion. Spoke with radiology who stated they could tap this for diagnostic but not therapeutic purposes. She would need to be off Lovenox for 12 hours or alternatively if on heparin 4 hours. -Hold lasix due to possible contraction alkalosis. -Chest x-ray pending. Delirium, no present on admission, ongoing: -Differential includes worsening infection, pain, medications, senior water/wastewater engineer pathology, hypoxia. -Seroquel given. -Head CT pending. -Morphine 2-4 mg IV q2h for pain. Anion gap metabolic alkalosis, not present on admission, ongoing: -AG 21. Possibly secondary to contraction alkalosis. -Stopped Lasix. -Continue to monitor. Persistently elevated troponins, present on admission: -Troponins have now stabilized and are trending down. Hypokalemia, not present on admission, ongoing: -On 09/23 potassium 2.7 -Replace with 80meq. -Repeat potassium in am. Anasarca secondary to protein deficiency/malnutrition; present on admission; ongoing -Patient presented with edema up to her sacrum with sparing of the abdomen; albumin of 1.3 on admission. No DVT on U/S. -She is status post PRBC's. -Albumin and Lasix have been stopped as there is a possible contraction alkalosis. Subacute liver abscesses; present on admission; ongoing -patient had hepatic abscesses following MRSA bacteremia. -ID seeing patient: continue daptomycin and ertapenem. -Procalcitonin down trending.. -Continue IV antibiotics per ID Acute blood loss anemia with macrocytosis and a mild elevated troponin; present admission; stable -Unknown source at this time with a questionable GI bleed; however, patient off Lovenox for 3 days at time of admission. -Reticulocyte count was 7.8 indicating that she is responding to this anemia, ruling out bone marrow suppression -Hemoccult 3 negative -Continue to monitor with CBC and transfuse as necessary. Left renal mass with reported capsule invasion; present on admission; stable -Diagnosed at [facility], however, unable to find biopsy results -Patient also had numerous thromboses and was placed on Lovenox, likely due to this mass -US at our facility showed: Solid left renal mass suspicious for underlying neoplasm. -Consulted urology and heme; appreciate their recommendations -More information in records from [facility] Hx of portal, mesenteric, and splenic vein thrombosis -Prothrombotic state likely secondary to renal cell carcinoma of the kidney -Switched Heparin to Lovenox on 09/22. Anion gap acidosis with elevated lactate; present admission; resolved: -Anion gap of 22 on admission with lactic acid of 4; patient also has a RTA. -Following transfusions will assess fluid balance -Recheck tomorrow Hypomagnesemia; present admission; resolved: -Contine to replace mag as needed. Right Pleural effusion; present admission; stable -Etiology unclear at this time; no known recent history of pneumonia; does have hepatic abscesses -Ultrasound on 09/16: Small right pleural effusion. -Pleural ultrasound ordered. -Pulmonary consult pending. Diabetes type II; present admission; resolved -Patient does not appear to be on any medications outpatient -A1c 5.5 -Stopped all insulin Chronic Severe protein-calorie Malnutrition; present admission; stable -Patient has been severely ill for 9 months at one point was on TPN -BMI > 16, however patient with anasarca; obvious underlying severe nutritional deficiency -Dietitian consult requested -Continue albumin infusion -Marinol added. Healing abdominal wound from colectomy; present on admission; stable -Allowed healing through secondary from colectomy in March 2016 -Wound consult ordered Disposition: 1-2 days and then discharge home as patient does not wish to go to SNF. Pain Evaluation: Adequate Pain Control VTE Mechanical Devices: Anti-Embolic stockings Resuscitation Status: CPR: Attempt Resuscitation Attending Statement The patient was seen and examined together with Dr. Powers on 09/23/2016 and I agree with the history, exam and plan as outlined in the note above. . Deny Powers DO Sep 23, 2016 10:15 David Belle MD Sep 24, 2016 08:03
--- NOTE | 2016-09-23 10:26 | PROG NOTE ---
[address] [address] PROGRESS NOTE PATIENT: HUNG JAMES : 1955 MR#: [id number] ADMIT: 09/16/2016 JOB ID: [id number] DATE: 09/23/2016 INFECTIOUS DISEASE FOLLOW UP NOTE: REASON FOR FOLLOWUP: Multiple issues including MRSA bacteremia, micro abscesses in the liver and elsewhere, clots in multiple major venous channels, anemia, unresected left renal malignancy and hypercoagulable state and now delirium. INTERVAL HISTORY: Yesterday when we saw the patient, she was quite lucid. By the late morning apparently yesterday, she became confused and has stayed that way since. This morning the patient simply repeats words that her spoken to her and questions and is completely disoriented which represents a major change in her mental status over the last 24 hours. For what it is worth, she denies having any pain, fevers, chills or shortness of breath but the veracity of her history is certainly in question this morning. Her who is with her reports that she is more short of breath and obviously very very confused. This case was discussed in detail with the Purple Team, attending and residents on the john[place]. PHYSICAL EXAMINATION: Reveals an awake but totally delirious woman. She is afebrile. Temperature 36.8, her pulse 85, respiratory rate 20, blood pressure 171/90. She is saturating reasonably well on 4 L. Eyes with pale conjunctivae as before. She has nasal oxygen flowing. Oral cavity without change. Her lungs had decreased breath sounds bilaterally with some few scattered crackles. Cardiac tones: Regular rate and rhythm. The abdomen was carefully examined. She has a colostomy, of course, and her midline wound appears uninfected and uninflamed. Remainder of her abdomen is relatively soft. She has a Sheldon catheter in place. No significant new rash was noted. LABORATORIES: Include a white count today of 11,600, but completely normal differential. Platelets normal at 368. Creatinine 0.73. LFTs are normal. Procalcitonin continues to drop from a level 100 six days ago to 5 today, so a 95% drop in procalcitonin. Urinalysis 11-50 white cells, and we discussed that previously. ABG today pH 7.54, pO2 57 pCO2 31, and that is on 4 L nasal prongs. Micro studies include negative blood cultures x1 set from the . We have Carmel albicans growing from a swab done of the open abdominal wound which in and of itself is not surprising. IMAGING: Includes a chest ultrasound done yesterday that showed a moderate right-sided pleural effusion. Additionally, a chest x-ray done yesterday shows persistent bibasilar atelectasis or consolidation. No other relevant recent x-rays except for those showing the clots which were present in both upper extremities as well as her splenic portal and mesenteric veins. IMPRESSION: This continues to be an incredibly complicated case of a woman with multiple underlying issues including her super hypercoagulable state, unresected left renal malignancy, COPD, CHF, recent positive blood cultures for MRSA with negative PE but positive micro abscesses and chronic liver disease. At this point, the patient is relatively stable from an overall point of view, but now has the abrupt onset of unexplained delirium which started about 24 hours ago. Her said that her stay at [facility] was punctuated by periods of delirium as well and I did not see a ready explanation for this today. The patient certainly does not appear septic. She has no fever. Her white count is slightly elevated but with a normal differential. Her procalcitonin is falling dramatically consistent with resolving bacterial infection. Ertapenem can cause encephalopathy and we have seen several cases at this hospital but it is peculiar that would start 10-14 days into the ertapenem therapy. RECOMMENDATIONS: 1. Will continue with these antibiotics at this time and will plan to continue through October 08, if possible. 2. This case discussed with Dr. Belle and his team regarding our goals of care. Recall that yesterday the patient was lucid and said she wanted aggressive measures, but I do agree that it is hard to see how this case ends favorably given that she has a large invasive unresected left renal malignancy as well as this profound hypercoagulable state which exists at the same time she is receiving transfusions for anemia and has multiorgan system dysfunction.
[2016-09-23] MEDS ORDERED: KCL IV ONE (10:30)
[2016-09-23] MEDS ORDERED: Polyethylene Glycol (PEG) 17 Gm Powder PO SCH (11:35)
--- NOTE | 2016-09-23 12:21 | DRSVH ---
PROCEDURE: X-RAY CHEST ONE VIEW, PORTABLE ([id number]) INDICATIONS: SHORTNESS OF BREATH TECHNIQUE: One view of the chest was acquired. COMPARISON: [facility], CR, XR CHEST 1VW (PORTABLE), 09/19/2016, 4:07. FINDINGS: Surgical changes and devices: Central venous catheter is stable. Lungs and pleura: Bilateral pleural fluid collections noted. Left-sided pleural fluid collection a sm all and stable compared to prior examination. Right sided pleural fluid collection a small to moderat e-sized and has increased in size. Increased opacification noted in the right lung which could repres ent pneumonia or atelectasis. Increasing perihilar opacification and interstitial prominence noted co mpatible pulmonary edema. Mediastinum: Mediastinal contours appear normal. Heart size is normal. Bones and chest wall: No suspicious bony lesions. Overlying soft tissues appear unremarkable. IMPRESSION: 1. Increasing opacification in the right lung which could represent atelectasis or pneumonia. 2. Pulmonary edema possibly related to CHF. 3. Small to moderate size right-sided pleural effusion slightly increased in size compared to 09/19/16 . Dictated by: Rody eWlch MD, PhD on 09/23/2016 at 12:17 Approved by: Rody Welch MD, PhD on 09/23/2016 at 12:19
--- NOTE | 2016-09-23 13:34 | PCM.PALLBR ---
Palliative Care Recommendation 61-year-old female with multiple issues including MRSA bacteremia, micro abscesses in the liver and elsewhere, clots in multiple major venous channels, anemia, unresected left renal malignancy and hypercoagulable state and now delirium. Palliative medicine initially consulted to assist with determination of goals of care. Summary of palliative recommendations: -Symptom management (Pain/other)- Delirium-uncertain etiology though multiple possibilities. CT brain pending, chest x-ray pending, additional evaluation underway under direction of her medical team. For relief of pain and/or dyspnea, IV morphine 2-4 mg Q 2hr prn. Minimize use of other medications that could potentially contribute to delirium. Dyspnea-suspect baseline COPD but with bilateral pleural effusions. Increasing FiO2 requirements- rule out pneumonia, etc. History of severe constipation and obstipation to the point of colonic rupture most likely from narcotics. Edema etiology unclear unless this is the result of thrombus in mesentery Sepsis- MRSA- managed by Dr. Sampson. Chronic dysphagia-unknown if had EGD Probable RCCA-not a surgical candidate at this time. Reviewed consideration for recheck CT in 3 months -DPOA/Advanced Directives/POLST-- discussed in detail with her today. He understands that in the bigger picture her prognosis is very poor, and that aggressive resuscitation efforts such as CPR, intubation would not likely be of benefit to her. She is therefore now DO NOT RESUSCITATE/DO NOT INTUBATE, but he does wish continuation of all possible medical care short of those terminal interventions Contacts :1st- Karthik, ([phone] and 2nd would be his sister JESUS BOB) [phone] Today I assisted her in preparing DAVE documentation which he will have witnessed/notarized and completed at a more convenient time -Family/emotional support-seems like good support from ; palliative will continue to follow as well. Today patient's refused TRANSITIONAL CARE LIAISON or environmental remediation consultant visits -Spiritual support- refused Additional Medical Diagnoses with primary management by Hospitalist team include : Delirium, uncertain etiology Hypertension; ongoing Acute hypoxic respiratory failure; present admission; ongoing Anion gap metabolic alkalosis, not present on admission, ongoing: Persistently elevated troponins, present on admission: Hypokalemia, not present on admission, ongoing: Anasarca secondary to protein deficiency/malnutrition; present on admission; ongoing Subacute liver abscesses; present on admission; ongoing Acute blood loss anemia with macrocytosis and a mild elevated troponin; present admission; stable Left renal mass with reported capsule invasion; present on admission; stable Hx of portal, mesenteric, and splenic vein thrombosis Anion gap acidosis with elevated lactate; present admission; resolved: Hypomagnesemia; present admission; resolved: Right Pleural effusion; present admission; stable Diabetes type II; present admission; resolved Chronic Severe protein-calorie Malnutrition; present admission; stable Healing abdominal wound from colectomy; present on admission; stable Problems: End of Life Preferences DO NOT RESUSCITATE/DO NOT INTUBATE/continue other medical care short of terminal interventions Goals of Care Wants aggressive treatment everything that is treatable. Does not want to be maintained if not good prognosis or if not good outcome for brain. Disposition To be determined Resuscitation Status Resuscitation Status: DNR/DNI:Do Not Resuscitate/Intubate POLST Updates/Changes Previous POLST?: No POLST Discussed with: Patient . Advanced Care Planning Address: Code status change Pain: Mild Symptom management: Drowsiness/sleepiness, Pain, Delirium Total time 65 minutes; >50% face to face with patient and family, providing counselling regarding plans and recommendations, and in care coordination with her medical teams. Of the above total time, 15 minutes counseling for advanced care planning with the patient's Palliative Brief Note Date of Service Sep 23, 2016 . Returned to reevaluate patient. Prior to visiting, reviewed her updated records in the EMR in detail, spoke with her bedside nurse and on several occasions spoke in detail with her hospital medicine team members. She has deteriorated with increasing delirium over the last 24-48 hours. O2 requirements increased as well with additional acid base/electrolyte abnormalities. Further evaluation underway at this time. When I arrived to visit, her was at bedside. He was upset and intermittently very tearful. He was concerned and somewhat focused on getting paperwork completed for DAVE and advanced directive- I sat down and helped him begin filling these things out, but reassured him that neither is critical at this point, further reassuring him that he could focus on his 's comfort and not worry about paperwork. He had a number of questions about her status and deterioration, and we talked at length about this, reviewing her results in the EMR in detail, reviewing her various diagnoses, both known and potential, and talked about further steps medicine team is going to undertake to evaluate her today. We also talked about end-of-life care issues and interventions On my exam, she is a frail, chronically ill-appearing woman lying in bed. Continued to complain of posterior pelvic pain related to her decubitus. Denied any significant shortness of breath, chest pain, abdominal pain or nausea. Did seem to answer simple, straightforward questions appropriately and reproducibly. Skin was warm and dry. Head and neck exam remarkable for alopecia and pallor. Diffuse muscle atrophy as well. Lungs with scattered crackles, heart sounds regular, abdomen soft and without peritoneal signs. Laboratory and imaging studies reviewed in detail. Justin Hernandes MD Sep 23, 2016 13:34
--- NOTE | 2016-09-23 14:46 | DRSVH ---
PROCEDURE: CT BRAIN WITHOUT CONTRAST ([id number]) INDICATIONS: 61 year-old female with confusion. TECHNIQUE: Noncontrast 4.5 mm thick angled axial sections acquired from the foramen magnum to the vertex, with c oronal reformats. COMPARISON: None. FINDINGS: Image quality: Excellent. CSF spaces: Basal cisterns are patent. No extra-axial fluid collections. Ventricles are normal in size and shape. Brain: No midline shift. No intracranial masses or hemorrhage. Mayers-white matter interface is norm al. There is localized intracranial internal carotid and left vertebral artery atherosclerosis. Skull and face: Calvarium and visualized facial bones are intact, without suspicious lesions. The p atient is edentulous on the asbestos removal supervisor film. Sinuses: Visualized sinuses and mastoids are clear. IMPRESSION: No acute intracranial abnormalities. Dictated by: Marquis Lara M.D. on 09/23/2016 at 13:42 Approved by: Marquis Lara M.D. on 09/23/2016 at 13:45
[2016-09-23] MEDS ORDERED: 0.9% Sodium Chloride 250 ML ONE ×2 (17:05)
[2016-09-23] MEDS: Lactulose 20 Gm/30 mL 30 mL Syrup PO SCH ×2 (17:13→22:02)
--- NOTE | 2016-09-23 17:16 | NUR ---
Social Work: Continued Discharge Planning D: Pt discussed in am rounds and EMR reviewed. Pt with new onset delirium with uncertain etiology. Palliative care team has been consulted; pt's spouse has determined pt is now DNR/DNI however wishes to pursue treatment. Prior to her onset of delirium, pt had declined recommendation for SNF and had a plan to complete outpatient PT and complete IV ABX at [facility]. A: At this time, DIE REPAIRER [employer] will continue to follow pt's clinical course and reapproach discharge planning with the pt's spouse once her needs are better identified. P: Evolving; Pt original plan to discharge home (5th wheel RV) with spouse and outpatient IV ABX at [facility]. DIE REPAIR[employer] to continue to follow and assist with safe discharge planning pending orders from MD and pt's needs at discharge. HERMAN Reyes
--- NOTE | 2016-09-23 19:31 | NUR ---
CT/NG Brain CT ordered on Pt, Pt restless and moving too much for CT scan per department, spoke with MD and one time dose of 1mg IV lorazepam ordered and administered, Pt accompanied to CT scan on 8L oxymask to maintain SPO2 sats, Pt much less restless and CT image acquired. After CT scan, Pt somnolent and having difficulties clearing secretions, oral suctioned intermittently until Pt no longer coughing on secretions. Pt no safe for PO intake and lactulose order placed, spoke with MD and order for NG tube placed, NG tube inserted to 45cm, placement confirmed with auscultation and PO meds administered.
--- NOTE | 2016-09-23 21:58 | ABG ---
DateTimeAnalyzed 21:53:00 -_ pH ____7.520 - 7.350 7.450 pCO2 ___34.9__ -mmHg 35.0 45.0 pO2 ___63.3__ -mmHg 69.0 116 HCO3- ___28.3__ -mmol/L 22.0 26.0 ABE ____5.5__ -mmol/L -2.0 2.0 tHb ____9.3__ -g/dL O2Hb ___91.9__ -% COHb ____1.8__ -% MetHb ____0.8__ -% sO2 ___94.4__ -% FIO2 ___40.0__ -% Drawn By MK - Date/Time Notified____ 21:57:00 -_ Liter_Flow ____5.0__ -L/min Oxygen Device 1 __oxymask - Notified By MK - B 753 -mmHg tO2 ___12.1__ -Vol% Jesse test _Positive -
--- NOTE | 2016-09-23 22:47 | NUR ---
Pt is still deeply sedated from ativan given earlier today. Very little response from pt, only one little moan. ABG's done to double check gases and they remained fairly unchanged from earlier gases. Dr. Quigley notified of neurological changes.
[2016-09-24] VITALS (8 sets, daily range): BP systolic 147–186; BP diastolic 80–104; PULSE 78–96; RESP 20–26; O2SAT 91–97
[2016-09-24 05:24] LABS: BASOPHILS % (AUTO) 0.2 % (0-3); EOSINOPHILS % (AUTO) 0.5 % (0-5); MONOCYTES % (AUTO) 5.8 % (4-12); Mean Corpuscular Hemoglobin 31.3 pg (27.0-35.0); NEUTROPHILS % (AUTO) 70.7 % (40-74); Platelet Count 319 bil/L (150-400)
[2016-09-24 06:45] LABS: Magnesium 2.1 mg/dL (1.6-2.6); Phosphorus 2.1 mg/dL (2.5-4.9)
[2016-09-24] MEDS ORDERED: Potassium Phos (mEq) Inj 20 MEQ in Dextrose 5% 250 ML IV ONE (07:55)
[2016-09-24] MEDS: DAPTOmycin Inj 500 MG in 0.9% Sodium Chloride 50 ML IV SCH (08:10)
[2016-09-24] MEDS: Potassium Chloride 20 mEq SR Tablet PO SCH (08:10)
[2016-09-24] MEDS: Ertapenem Inj 1,000 MG in 0.9% Sodium Chloride 50 ML IV SCH (08:11)
[2016-09-24] MEDS: Pantoprazole 40 mg ER24 Tablet PO SCH (08:11)
[2016-09-24] MEDS: Lactulose 20 Gm/30 mL 30 mL Syrup PO SCH ×3 (08:11→22:21)
[2016-09-24] MEDS: Nystatin 100,000 Unit/mL 5 mL Suspension PO SCH ×4 (08:18→22:21)
[2016-09-24] MEDS: Sodium Chloride LOK Flush 10 mL Syringe IVFLUSH PRN ×2 (08:19→13:02)
[2016-09-24 09:30] LABS: Bilirubin, Direct 0.2 mg/dL (0.0-0.3)
[2016-09-24 09:54] LABS: APPEARANCE,URINE HAZY (CLEAR,HAZY); COLOR,URINE YELLOW (YELLOW); OCCULT BLOOD,URINE MODERATE (NEGATIVE)
[2016-09-24 09:56] LABS: UROBILINOGEN,URINE NORMAL (NORMAL)
[2016-09-24 09:57] LABS: YEAST,URINE MANY (NONE SEEN)
--- NOTE | 2016-09-24 10:31 | PROG NOTE ---
[address] [address] PROGRESS NOTE PATIENT: HUNG JAMES : 1955 MR#: [id number] ADMIT: 09/16/2016 JOB ID: [id number] DATE: 09/24/2016 INFECTIOUS DISEASE FOLLOW UP NOTE: REASON FOR FOLLOWUP: MRSA bacteremia, hepatic micro abscesses, hypercoagulable state, renal tumor and multiple other problems. INTERVAL HISTORY: Recall that yesterday the patient was developing delirium of uncertain etiology. There were concerns that she was developing hepatic encephalopathy based on an elevated serum ammonia and more aggressive efforts have been directed towards addressing that issue. Overnight, however, though the patient has become completely obtunded and is now essentially unresponsive and is basically unresponsive and tachypneic. This morning the patient does not respond to any stimuli and is just lying in bed, taking deep and frequent respirations. Note that this change in mental status was perhaps accentuated by some Ativan she received prior to a CT scan of the brain that was done yesterday as part of her delirium evaluation. This case was discussed in great detail with the patient's , with Palliative Care, and with the bedside nurse. PHYSICAL EXAMINATION: Reveals an obtunded, tachypneic woman who is febrile to 38.4 degrees axillary, pulse 96, respiratory rate 24, blood pressure 174/92. She is not on vasopressor agents. She is saturating 92% on 5 L. Examination of the eyes reveals that they are deviated to the left. There is no obvious conjunctivitis. Pupils are equal. She now has an NG tube that was not present yesterday. She is receiving face mask oxygen. Her mucous membranes are dry from her hyperventilation. The neck is reasonably supple. She still has the IJ on the left side. Lungs notable for deep respirations, a few crackles at the bases. Cardiac tones: Regular rate and rhythm in the 80s. It is a sinus rhythm on the monitor. The abdomen is slightly distended. She still has the colostomy, of course, which seems to be functioning normally. She also has a midline wound which is a shallow wound which grew Carmel previously. The Sheldon catheter is present at this point. We rolled the patient over. Her decubitus ulcer at the superior area of the coccyx has basically healed though it is still erythematous. The lower extremities are without evidence of a skin breakdown, cellulitis or notable edema. LABORATORIES: Include white blood count 9400, completely normal differential oddly despite her febrile state. Creatinine is 0.78, which is stable. LFTs are normal today. Ammonia 167, albumin 3.9. Procalcitonin which was 100 a week ago is now declined in a linear fashion to 3, so 97% drop in procalcitonin even as the patient has deteriorated. There are no recent microbiology cultures. We did one week ago culture of the shallow abdominal wound left over from her recent surgery and that grew Carmel but nothing else and that is clearly a very superficial colonized wound. Blood cultures were done when she was admitted on the and were negative. A chest x-ray done yesterday shows possible increasing right-sided pneumonia and/or CHF. A brain CT done yesterday as part of her neuro workup which showed no acute abnormality. The chest ultrasound done on the showed a moderate right pleural effusion. IMPRESSION: This case has deteriorated a great deal over the past 24 hours. The patient now has recrudescent fevers, even as she has a normal white count and differential with the procalcitonin down 97% since admission. Recall this is a patient with underlying super hypercoagulable state, has clotted off multiple large veins in her abdomen as well as both upper extremities. She has an unresected renal malignancy, underlying COPD, CHF and probably some chronic liver disease on the basis of longstanding alcohol abuse. The patient was relatively stable until about 36 hours ago when she developed delirium which has now progressed into basically obtundation. There are a couple explanations for this decline in mental status. One is perhaps the dose of Ativan she received yesterday for the CT, but as the hours go by that becomes less and less likely. Another possibility because of her fever is that she is now becoming septic and there are multiple possible courses of sepsis here which would include a fungemia, worsening venous thrombosis which in and of itself could cause a fever, C difficile, urinary tract infection, pancreatitis or worsening liver function with increasing hepatitis. Also possible, of course, is that her obtundation is strictly on the basis of worsening hepatic function which could be on the basis of increasing portal vein clot. Note that the patient has been hypercoagulable and has had progressive clotting despite therapeutic anticoagulation for weeks. Overall, at this point, this very complex multi organ system case it is now deteriorating to the point where the patient would require intubation or intensive care unit care if she were a candidate for these. I think most appropriately though the patient is not a candidate for resuscitation or intubation, and if this deterioration is not reversed fairly soon, she will likely succumb to this ongoing febrile process associated with obtundation. RECOMMENDATIONS: 1. CT scan of the chest, abdomen and pelvis with contrast has been ordered and I discussed this with the primary team. 2. Blood cultures which will be fungal blood cultures will be checked through the IJ as well as through the skin. 3. Will check a C. difficile from the colostomy output. 4. Urinalysis with reflux culture as necessary will be ordered. 5. A lipase will be ordered. 6. A repeat hepatic panel be ordered. 7. This case discussed with the primary team as well as Palliative Care, nursing and the patient's .
[2016-09-24] MEDS ORDERED: Labetalol 5 mg/mL 4 mL Inj IVPUSH STA (11:40)
[2016-09-24] MEDS: Micafungin Inj 150 MG in 0.9% Sodium Chloride 100 ML IV SCH (13:02)
--- NOTE | 2016-09-24 13:12 | PCM.PALLBR ---
Palliative Care Recommendation 61-year-old female with multiple issues including MRSA bacteremia, micro abscesses in the liver and elsewhere, clots in multiple major venous vessels, anemia, unresected left renal malignancy and hypercoagulable state and now delirium and evidence of new hepatic encephalopathy with markedly elevated ammonia. Palliative medicine consulted to assist with determination of goals of care. Summary of palliative recommendations: -Symptom management (Pain/other)- Delirium- consistent with hepatic encephalopathy, though multiple possible etiologies for such hepatic failure (sepsis, portal vein thrombosis, etc). Further evaluation underway per medical team. Dyspnea-suspect baseline COPD but with bilateral pleural effusions. Increasing FiO2 requirements- rule out pneumonia, etc. Continue use of low-dose IV morphine sulfate for relief of dyspnea and pain. Sepsis- MRSA- managed by Dr. Sampson. Antifungal coverage added today. Probable renal cell carcinoma- not surgical candidate at this time. Likely contributes to her hypercoagulable state. -DPOA/Advanced Directives/POLST-- discussed in detail with her yesterday. He understands that in the bigger picture her prognosis is very poor , and that aggressive resuscitation efforts such as CPR, intubation would not be of benefit to her. She is therefore now DO NOT RESUSCITATE/DO NOT INTUBATE, but he does wish continuation of all possible medical care short of those terminal interventions Contacts :1st- Karthik, ([phone] and 2nd would be his sister JESUS BOB) [phone] -Family/emotional support-seems like good support from ; palliative will continue to follow as well. 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 -Spiritual support- refused Additional Medical Diagnoses with primary management by Hospitalist team include : Delirium consistent with hepatic encephalopathy Hypertension; ongoing Acute hypoxic respiratory failure; present admission; ongoing Anion gap metabolic alkalosis, not present on admission, ongoing: Persistently elevated troponins, present on admission: Hypokalemia, not present on admission, ongoing: Anasarca secondary to protein deficiency/malnutrition; present on admission; ongoing Subacute liver abscesses; present on admission; ongoing Acute blood loss anemia with macrocytosis and a mild elevated troponin; present admission; stable Left renal mass with reported capsule invasion; present on admission; stable Hx of portal, mesenteric, and splenic vein thrombosis Anion gap acidosis with elevated lactate; present admission; resolved: Hypomagnesemia; present admission; resolved: Right Pleural effusion; present admission; stable Diabetes type II; present admission; resolved Chronic Severe protein-calorie Malnutrition; present admission; stable Healing abdominal wound from colectomy; present on admission; stable Problems: End of Life Preferences DO NOT RESUSCITATE/DO NOT INTUBATE/continue other medical care short of terminal interventions Goals of Care Wants aggressive treatment everything that is treatable. Does not want to be maintained if not good prognosis or if not good outcome for brain. Disposition To be determined Resuscitation Status Resuscitation Status: DNR/DNI:Do Not Resuscitate/Intubate POLST Updates/Changes Previous POLST?: No POLST Discussed with: Patient . Pain: None Symptom management: Drowsiness/sleepiness, Dyspnea Total time 35 minutes; >50% face to face with patient and family, providing counselling regarding plans and recommendations, and in care coordination with her medical teams. Palliative Brief Note Date of Service Sep 24, 2016 . Returned to reevaluate patient. Prior to visiting, reviewed her updated records in the EMR in detail, spoke with her bedside nurse, spoke with Dr. Sampson infectious disease as well as with her medical team members. Her was stepping outside as I arrived- in passing, he said he had no particular questions at this time and was awaiting her CT results. On my arrival to her room, the patient is lying in bed. Unresponsive/obtunded. Vital signs noted. Skin appears pale and jaundiced, warm and dry. Head and neck exam without new focal findings. Lungs with coarse upper airway sounds and scattered crackles. Heart sounds rapid and regular. Abdomen soft and without rigidity- no grimacing or other evidence of tenderness to palpation. Lower extremities with TYLER stockings in place and no significant pitting edema. Laboratory and imaging studies reviewed in detail- at this time CT of abdomen and pelvis with contrast pending. Justin Hernandes MD Sep 24, 2016 13:12
--- NOTE | 2016-09-24 14:52 | NUR ---
NUTRITION FOLLOW UP: ASSESS: 61 YO F admitted with severe anasarca in the setting of severe hypoalbuminemia (1.3) and severe malnutrition. Pt was doing well and working on increasing her PO intake until 09/23 when her mental status started to decrease. Today, pt is obtunded and minimally responsive. She had a CT of her brain 09/23. Plan for CT of chest, abdomen, pelvis today. There is concern that her decrease in mentation is related to her renal carcinoma that pt had previously decided not to treat. Due to decrease in mentation pt is not able to tolerate PO but she continues to have a general diet order. Per nursing note, pt required NGT to be placed overnight for meds. PMHx: Hx alcoholism, probable chronic pancreatitis, pseudocysts, possible abscesses, osteoporosis, type 2 diabetes, HTN, R. hip fracture with replacement, colonic rupture, peritonitis, sepsis syndrome (current colostomy). DIET: General. PO intake 25-75% LABS: Reviewed. Na 152, K 3.4, Glu 141, Ca 8.3, phos 2.1, alb 2.9, ammonia 404 MEDICATIONS: Reviewed. Lasix, tums, zofran, lactulose GI: 350ml output via colostomy 09/23- C.diff pending SKIN: [place] 14 ANTHROPOMETRICS: Current Wt: 56.6 kg, BMI: 24.4 kg/m2. Admit weight: 58.6 kg, IBW: 45.5 kg ESTIMATED NEEDS (MALNUTRITION). Calories: 1715-2000kcal (30-35kcal/kg BW) Protein: 85-105 g protein (1.5-1.8 g/kg BW) NUTRITION DIAGNOSIS: 1) Severe pro/kcal malnutrition related to prolonged, complicated hospital admission history, as evidenced by severe anasarca, visible muscle/fat loss, likely renal cancer diagnosis.---PERSISTS. 2) Inadequate oral intake related to AMS as evidence by pt not alert enough for safe PO and need for NGT for meds. INTERVENTION: 1) Pt continues to have a General diet order. Recommend consider changing diet order to NPO if pt is not alert enough for safe PO. 2) On 09/21 spoke with pt about high kcal/pro nutrition therapy. Discussed eating smaller, more frequent meals and tips to maximize pro/kcal intake when appetite is down. Provided high kcal/pro recipe book and high kcal/pro nutrition therapy handout. Pt verbalized understanding. MONITOR/EVALUATE: mentation, PO intake, wt, labs, POC, GI/nutrition status. Follow per high nutrition risk guidelines.
--- NOTE | 2016-09-24 15:27 | NUR ---
Remains unresponsive with exception of withdrawing feet away from stimuli, has opened eyes only briefly this morning, unable to hold attention. Ammonia level, labs noted. No commands. Limbs flaccid. CT done/results pending. BCxs repeated, urine & stool sent to lab. Increased 02 needs to 7-9L 02 by oxymask. Remains hypertensive. Febrile. Sinus rhythm on tele. Colostomy draining liquid green-brown bile. Received oral contrast via NGT this morning; NG to suction upon having small emesis, which she did not awaken during. Oral suctioning/care done, HOB remains elevated at 30+ degrees, turning side to side every 1-2 hours. Buttocks/kurtis area red, skin folds appear yeasty/red, moist, treating with nystatin. Anxious at bedside, updated frequently by care team. Pastoral care offered, declined. Palliative team involved/supporting.
--- NOTE | 2016-09-24 15:49 | DRSVH ---
PROCEDURE: CT CHEST, ABDOMEN AND PELVIS [facility] CONTRAST ([id number]) INDICATIONS: sepsis, previous hepatic micro abscess TECHNIQUE: After the administration of oral and intravenous contrast, 5 mm thick sections acquired from the lung apices to the symphysis. 5 mm coronal and sagittal reformats were performed, with additional 7 mm c oronal MIP reformats through the lungs. For radiation dose reduction, the following was used: autom ated exposure control, adjustment of mA and/or kV according to patient size. COMPARISON: [facility], CT, CT CHEST ABD PELVIS W CON, 09/03/2016, 10:14. FINDINGS: Image quality: Excellent. CHEST: Lungs and pleura: Moderate-sized to large right-sided pleural effusion noted. A small left-sided pleu ral effusion noted. Interstitial prominence and ground glass opacities noted in the perihilar lungs b ilaterally suspicious for pulmonary edema. Atelectasis noted in the lung bases bilaterally. Central a nd peripheral airways appear patent and normal in caliber. Mediastinum: Heart size is enlarged. Central venous catheter projects to the distal SVC via a left I J approach. Presence of NG tube is noted which projects across the GE junction with tip in the mid ga stric body. No pericardial effusion. Atherosclerotic calcifications are noted in the aorta, great ves sels and the coronary vasculature. No mediastinal or hilar adenopathy by size criteria. Thoracic aor ta and central pulmonary arteries are normal in size. Esophagus is normal in caliber. No hiatal her fay. Chest wall: No axillary or supraclavicular adenopathy by size criteria. Thyroid gland is within nor mal limits. ABDOMEN: Solid organs: Liver and spleen are normal in size. Liver has heterogeneous enhancement likely reflec tive of transient hepatic attenuation differences. Hepatic microabscesses identified by prior CT scan obtained 09/03/2016 have resolved. Gallbladder is enlarged. Gallbladder wall is thickened which coul d be related to hepatic disease or cholecystitis; please correlate with clinical data.. Biliary syst em is non dilated. Pancreas enhances normally. Multiple peripancreatic fluid collections identified on prior CT scan almost completely resolved with only a small 1.3 cm maximum diameter fluid collectio n adjacent to the head of the pancreas. No adrenal nodules. 5.8 cm heterogeneously enhancing left moses al mass which extends into the left renal vein is stable compared to prior CT scan. Peritoneum and bowel: Postsurgical changes compatible with colectomy and left lower quadrant ileostom y formation noted. No free air. Moderate amount of scattered free fluid noted in the abdomen and pelv is. Nodes and vessels: No retroperitoneal or mesenteric adenopathy by size criteria. Aorta and inferior vena cava are normal in size. Small filling defect noted in the superior mesenteric vein and in the proximal portal vein compatible with thrombus which has decreased in size compared to prior CT scan o btained in 09/03/2016. Scattered atherosclerotic calcifications involving the abdominal and pelvic Vas culature. Miscellaneous: No ventral hernias. Extensive subcutaneous edema noted. PELVIS: Genitourinary: Bladder wall thickness is normal. Miscellaneous: No inguinal hernias or adenopathy. Extensive subcutaneous edema noted. There is a 4.7 x 6.8 cm slightly hyperdense mass in the right gluteal musculature that has developed in interval si nce prior CT scan and which may represent an intramuscular hematoma. Bones: No suspicious bony lesions. No vertebral body compression fractures. Mitral spine. Right hip arthroplasty. IMPRESSION: 1. Moderate to large right-sided pleural effusion. Small left-sided pleural effusion. 2. Cardiomegaly. 3. Probable pulmonary edema. 4. Hepatic microabscesses identified on prior CT scan obtained 09/03/16 have resolved. 5. Multiple peripancreatic fluid collections identified the prior CT scan have almost completely reso lved. A single, approximately 1.3 cm maximum diameter fluid collection is noted adjacent to the head of the pancreas which is suspicious for residual peripancreatic abscess. 6. Moderate amount of ascites. 7. Prominent gallbladder and gallbladder wall thickening which could be due to adjacent hepatic disea se or cholecystitis. Please correlate with clinical data. 8. Dense right gluteal musculature multilobular mass suspicious for intramuscular hematoma. 9. Anasarca. Dictated by: Rody Welch MD, PhD on 09/24/2016 at 15:32 Approved by: Rody Welch MD, PhD on 09/24/2016 at 15:47
--- NOTE | 2016-09-24 17:23 | PCM.PNMED ---
Subjective Date of Service Sep 24, 2016 Subjective Pt continues to deteriorate. She was started on lactulose yesterday and an NG tube was palced. She continues to receive medications by the tube when not on suction. When on suction the patient has consistent yellow fluid drain from the tube. Repeat of Ammonia today revealed and increase from 167 to 404. Discussion was had with ID (Dr. Sampson) and palliative () this morning. Exam Vital Signs Vital Sign - Last Date Time Temp Pulse Resp B/P Pulse Ox O2 Delivery O2 Flow Rate FiO2 09/24/16 15:38 38.1 79 20 159/80 94 OxyMask 5.00 Intake and Output 09/23/16 09/23/16 09/24/16 Cumulative From/Thru 15:00 23:00 07:00 09/16/16 07:16 - 09/24/16 06:46 Intake Total 787 ml 258 ml 43086 ml Output Total 2460 ml 700 ml 34289 ml Balance -1673 ml -442 ml -9031 ml Intake Oral 360 ml 7405 ml IV Total 427 ml 258 ml 7279 ml Packed Cells 1145 ml Output Urine Total 2200 ml 500 ml 55537 ml Stool Total 200 ml 200 ml 2375 ml Gastric Drainage Total 60 ml 60 ml Estimated Blood Loss 400 ml # Bowel Movements 0 Exam Gen: disoriented and unable to follow commands HEENT: no scleral icterus Cardio: regular rate and tachy Resp:Crackles present in lateral leads Abd: Secondary intention ulcer healing, ostomy is active Ext: mild edema up to mid thigh IVs and Medications Medications Reviewed: Medications were reviewed in detail Lab and Diagnostics Result Diagram: 09/24/1615 09/24/16 0515 X-Rays, CTs and MRIs Chest x-ray IMPRESSION: 1. Continued small right-sided pleural effusion and mild atelectasis. Superimposed pneumonia is difficult to exclude. 2. Unchanged right-sided PICC line catheter. Dictated by: Brendan Marley M.D. on 09/16/2016 at 8:09 PROCEDURE: US ABDOMEN IMPRESSION: 1. Increased hepatic echogenicity noted likely related to fatty infiltration of the liver but other sources of hepatocellular disease cannot be excluded. Recommend clinical correlation. 2. Solid left renal mass suspicious for underlying neoplasm. Recommend renal protocol CT for further assessment. 3. Small right pleural effusion. 4. Gallbladder sludge with mild thickened gallbladder wall. Developing cholecystitis cannot be excluded. Correlate clinically. Approved by: Rody Welch MD, PhD on 09/16/2016 at 21:49 PROCEDURE: US VENOUS ARM DUPLEX, BILATERAL IMPRESSION: Occlusive thrombus present within the right and left upper extremities. Marciano Walden telephoned with the results by the trimming assembler at 1624 hrs. 09/16/2016. Approved by: Rody Welch MD, PhD on 09/16/2016 at 16:46 PROCEDURE: US VENOUS LEG DUPLEX BILATERAL IMPRESSION: No DVT found bilaterally. Approved by: Bryant Ramsey M.D. on 09/16/2016 at 17:18 Chest xray 09/21/2016: IMPRESSION: 1. Persistent small pleural effusions, bibasilar consolidation or atelectasis, and groundglass opacities consistent with pulmonary edema or pneumonia. Dictated by: Jb Enriquez M.D. on 09/21/2016 at 9:22 CT Chest/Abd/Pelvis 1. Moderate to large right-sided pleural effusion. Small left-sided pleural effusion. 2. Cardiomegaly. 3. Probable pulmonary edema. 4. Hepatic microabscesses identified on prior CT scan obtained 09/03/16 have resolved. 5. Multiple peripancreatic fluid collections identified the prior CT scan have almost completely resolved. A single, approximately 1.3 cm maximum diameter fluid collection is noted adjacent to the head of the pancreas which is suspicious for residual peripancreatic abscess. 6. Moderate amount of ascites. 7. Prominent gallbladder and gallbladder wall thickening which could be due to adjacent hepatic disease or cholecystitis. Please correlate with clinical data. 8. Dense right gluteal musculature multilobular mass suspicious for intramuscular hematoma. 9. Anasarca Dictated by: Rody Welch MD, PhD on 09/24/2016 at 15:32 12-lead ECG EKG is low-voltage, rate in the 80s, QTC is 665 Cardiac Echo Impressions Echocardiogram Report Interpretation Summary The left ventricle is normal in size. Left ventricular systolic function is normal without focal wall motion abnormalities. The ejection fraction is estimated to be 65-70%. The right ventricle is normal in size and function. The right ventricular systolic pressure is estimated at 39 mmHg assuming a right atrial pressure of 8 mm Hg. Both atria are normal in size. There is moderate tricuspid regurgitation. There is no other significant valvular heart disease. The aortic root is normal size. There are moderate-sized bilateral pleural effusions noted. Reading Physician:PM Additional Diagnostics Pleural ultrasound on 09/22/2014: IMPRESSION: Moderate right pleural effusion. Dictated by: Ben Everett RRA Interpreted: Chula Fortune MD on 09/22/2016 at 14:07 Assessment & Plan 61-year-old female with extremely complicated course who presented to the emergency department with severe anemia of 6.5 with no obvious source of bleeding, as well as severe nutrient deficiency and lactic acidosis. Delirium second to hyperammonaemia, no present on admission, ongoing: -Ammonia questionably secondary to possible portal shunting due to previous portal, superior mesenteric, and splenic vein thrombosis that has improved since previous CT scan -Seroquel stopped -Head CT NEGATIVE -Morphine 2-4 mg IV q2h for pain. -Discussed with Dr. Dolan (nephro) about possibility of dialysis; she has agreed to see this patient tomorrow; appreciate her review of this case -Continue lactulose through NG -Rifaxmin -Still on anticoagulation for thrombosis Hypertension; ongoing -Patient's blood pressures are routinely above 150 -Lisinopril 20mg daily. -Changed metoprolol to carvedilol -Labetalol 20mg IV for SBP>180 Acute hypoxic respiratory failure; present admission; ongoing -Oxygen requirement likely due to anemia. Increased oxygen requirements on which have since stabilized but not improved. ABG on 09/23 showed: ph 7.543 , Co2 31, Po2 56.9, HCO3 27. -Chest xray 09/21: Persistent small pleural effusions, bibasilar consolidation or atelectasis, and groundglass opacities consistent with pulmonary edema or pneumonia. -Pleural ultrasound on 09/22/2016 showed moderate right effusion. Spoke with radiology who stated they could tap this for diagnostic but not therapeutic purposes. She would need to be off Lovenox for 12 hours or alternatively if on heparin 4 hours. -Hold lasix due to possible contraction alkalosis. -Chest x-ray pending. -CT OF THE CHEST REVEALS LARGE R PLEURAL EFFUSION AND PNEUMONIA VS ATELECTASIS Anion gap metabolic alkalosis, not present on admission, ongoing: -AG 21. Possibly secondary to contraction alkalosis. -Stopped Lasix. -Consulted nephrology Persistently elevated troponins, present on admission: -Troponins have now stabilized and are trending down. Hypokalemia, not present on admission, ongoing: -On 09/23 potassium 2.7 -Replace with 20meq IV -Repeat potassium. Anasarca secondary to protein deficiency/malnutrition; present on admission; ongoing -Patient presented with edema up to her sacrum with sparing of the abdomen; albumin of 1.3 on admission. No DVT on U/S. -She is status post PRBC's. -Albumin and Lasix have been stopped as there is a possible contraction alkalosis. Subacute liver abscesses; present on admission; ongoing -Patient had hepatic abscesses following MRSA bacteremia. -ID seeing patient: continue daptomycin and ertapenem. -Procalcitonin down trending.. -Continue IV antibiotics per ID Acute blood loss anemia with macrocytosis and a mild elevated troponin; present admission; stable -Unknown source at this time with a questionable GI bleed; however, patient off Lovenox for 3 days at time of admission. -Reticulocyte count was 7.8 indicating that she is responding to this anemia, ruling out bone marrow suppression -Hemoccult 3 negative -Continue to monitor with CBC and transfuse as necessary. Left renal mass with reported capsule invasion; present on admission; stable -Diagnosed at [facility], however, unable to find biopsy results -Patient also had numerous thromboses and was placed on Lovenox, likely due to this mass -US at our facility showed: Solid left renal mass suspicious for underlying neoplasm. -Consulted urology and heme; appreciate their recommendations -CT ABD DEMONSTRATES INVASION OF THE LEFT RENAL VEIN Anion gap acidosis with elevated lactate; present admission; resolved: -Anion gap of 22 on admission with lactic acid of 4; patient also has a RTA. -Following transfusions will assess fluid balance -Recheck tomorrow Hypomagnesemia; present admission; resolved: -Contine to replace mag as needed. Right Pleural effusion; present admission; stable -Etiology unclear at this time; no known recent history of pneumonia; does have hepatic abscesses -Ultrasound on 09/16: Small right pleural effusion. -Pleural ultrasound ordered. -Pulmonary consult pending. Diabetes type II; present admission; resolved -Patient does not appear to be on any medications outpatient -A1c 5.5 -Stopped all insulin Chronic Severe protein-calorie Malnutrition; present admission; stable -Patient has been severely ill for 9 months at one point was on TPN -BMI > 16, however patient with anasarca; obvious underlying severe nutritional deficiency -Dietitian consult requested -Continue albumin infusion -Marinol added. Healing abdominal wound from colectomy; present on admission; stable -Allowed healing through secondary from colectomy in March 2016 -Wound consult ordered Disposition: Prognosis very grim. Discussed with Urban () about the likelihood of the patient passing away in the coming days. Discussion with Dr. Dolan (Nephrology) about possible dialysis and she will see the patient tomorrow. Even with heroic measures such as dialysis, retirement outcome seems predetermined due to the complicated and progressed medical course, including a renal vein invasion by left renal mass. The left renal mass is presumed to be cancer at this time but the patient has not allowed for any work up of the mass at this time. VTE Mechanical Devices: Anti-Embolic stockings Resuscitation Status: DNR/DNI:Do Not Resuscitate/Intubate Attending Statement The patient was seen and examined together with Dr. Walden on 09/24/16 and I have added additional information to the note above. Jude Walden DO Sep 24, 2016 17:23 Mariya Mock DO Sep 25, 2016 07:08
[2016-09-24] MEDS ORDERED: 0.9% Sodium Chloride 250 ML ONE ×2 (21:58)
[2016-09-25] VITALS (8 sets, daily range): BP systolic 151–169; BP diastolic 89–99; PULSE 76–85; RESP 23–27; O2SAT 90–97
[2016-09-25] MEDS ORDERED: 0.45% Sodium Chloride 250 ML in IV Bag 1 EACH IV ONE (03:10)
[2016-09-25] MEDS ORDERED: 0.9% Sodium Chloride 1,000 ML IV SCH (03:10)
[2016-09-25 05:18] LABS: BASOPHILS % (AUTO) 0.2 % (0-3); EOSINOPHILS % (AUTO) 0 % (0-5); MONOCYTES % (AUTO) 6.2 % (4-12); Mean Corpuscular Hemoglobin 30.8 pg (27.0-35.0); Mean Corpuscular Volume 100.3 fL (81-100); NEUTROPHILS % (AUTO) 66.8 % (40-74); Platelet Count 368 bil/L (150-400)
--- NOTE | 2016-09-25 05:35 | NUR ---
Neuro Pt continues to be unable to follow commands, speak or open eyes to voice. Pt will withdraw from stimulus to feet and makes grunting noises at times. Pt is Q2 turns and frequent oral care given. Received an ordered from Dr. Waldne around 299 that was needing some clarification. Dr. Morrison paged and informed nurse to hold off on order until it could be clarified with the ordering DR. PFEIFFER and Tele SR 70's to 90's.
[2016-09-25 06:06] LABS: Magnesium 2.1 mg/dL (1.6-2.6); Phosphorus 3.3 mg/dL (2.5-4.9)
[2016-09-25] MEDS ORDERED: KCl 40 mEq/D5W 500 mL 40 MEQ in IV Premix 500 EACH IV ONE (07:05)
[2016-09-25] MEDS: Pantoprazole 40 mg ER24 Tablet PO SCH (07:30)
[2016-09-25] MEDS: Lactulose 20 Gm/30 mL 30 mL Syrup PO SCH ×8 (08:11→18:30)
[2016-09-25] MEDS: Potassium Chloride 20 mEq SR Tablet PO SCH (08:11)
[2016-09-25] MEDS: Nystatin 100,000 Unit/mL 5 mL Suspension PO SCH ×4 (08:12→21:06)
[2016-09-25] MEDS: Ertapenem Inj 1,000 MG in 0.9% Sodium Chloride 50 ML IV SCH (08:13)
--- NOTE | 2016-09-25 09:10 | PCM.PNMED ---
Subjective Date of Service Sep 25, 2016 Subjective This is a 61 year old female with fall in 2016 which led to a right hip fracture and total hip replacement. She then had severe obstipation which led to colonic rupture. She developed MRSA sepsis with microabscess on liver as well as multiple sites of thrombosis including portal vein and mesenteric vein. She was incidentally found to have a renal mass which is thought to be probable renal cell carcinoma. Overnight pt continues to deteriorate. She was started on lactulose by NG and ammonia level has improved. Her cognitive status though continues to decline and she is no longer answering questions or waking with sternal rub. She continues to receive medications by the tube when not on suction. When on suction the patient continues to have consistent yellow fluid drain from the tube. Planned consult today with nephrology concerning possible dialysis. Exam Vital Signs Vital Sign - Last Date Time Temp Pulse Resp B/P Pulse Ox O2 Delivery O2 Flow Rate FiO2 09/25/16 08:32 36.8 82 26 169/89 95 OxyMask 15.00 Intake and Output 09/24/16 09/24/16 09/25/16 Cumulative From/Thru 15:00 23:00 07:00 09/16/16 07:16 - 09/25/16 06:30 Intake Total 1620 ml 227 ml 54853 ml Output Total 300 ml 1375 ml 1050 ml 69986 ml Balance -300 ml 245 ml -823 ml -9909 ml Intake Oral 860 ml 0 ml 8265 ml IV Total 760 ml 227 ml 8266 ml Packed Cells 1145 ml Output Urine Total 300 ml 500 ml 13339 ml Stool Total 425 ml 550 ml 3350 ml Gastric Drainage Total 300 ml 650 ml 1010 ml Estimated Blood Loss 400 ml # Bowel Movements 0 Exam Gen: disoriented, unable to follow commands, unresponsive to sternal rub. HEENT: no scleral icterus Cardio: regular rate and tachy Resp:Crackles present bilaterally Abd: Secondary intention ulcer healing, green discharge surrounding site, ostomy is active Ext: mild edema up to mid thigh IVs and Medications Medications Reviewed: Medications were reviewed in detail Lab and Diagnostics Result Diagram: 09/25/1644909/25/16 045 X-Rays, CTs and MRIs Chest x-ray IMPRESSION: 1. Continued small right-sided pleural effusion and mild atelectasis. Superimposed pneumonia is difficult to exclude. 2. Unchanged right-sided PICC line catheter. Dictated by: Brendan Marley M.D. on 09/16/2016 at 8:09 PROCEDURE: US ABDOMEN IMPRESSION: 1. Increased hepatic echogenicity noted likely related to fatty infiltration of the liver but other sources of hepatocellular disease cannot be excluded. Recommend clinical correlation. 2. Solid left renal mass suspicious for underlying neoplasm. Recommend renal protocol CT for further assessment. 3. Small right pleural effusion. 4. Gallbladder sludge with mild thickened gallbladder wall. Developing cholecystitis cannot be excluded. Correlate clinically. Approved by: Rody Welch MD, PhD on 09/16/2016 at 21:49 PROCEDURE: US VENOUS ARM DUPLEX, BILATERAL IMPRESSION: Occlusive thrombus present within the right and left upper extremities. Marciano Walden telephoned with the results by the head of biology at 1624 hrs. 09/16/2016. Approved by: Rody Welch MD, PhD on 09/16/2016 at 16:46 PROCEDURE: US VENOUS LEG DUPLEX BILATERAL IMPRESSION: No DVT found bilaterally. Approved by: Bryant Ramsey M.D. on 09/16/2016 at 17:18 Chest xray 09/21/2016: IMPRESSION: 1. Persistent small pleural effusions, bibasilar consolidation or atelectasis, and groundglass opacities consistent with pulmonary edema or pneumonia. Dictated by: Jb Enriquez M.D. on 09/21/2016 at 9:22 CT Chest/Abd/Pelvis 1. Moderate to large right-sided pleural effusion. Small left-sided pleural effusion. 2. Cardiomegaly. 3. Probable pulmonary edema. 4. Hepatic microabscesses identified on prior CT scan obtained 09/03/16 have resolved. 5. Multiple peripancreatic fluid collections identified the prior CT scan have almost completely resolved. A single, approximately 1.3 cm maximum diameter fluid collection is noted adjacent to the head of the pancreas which is suspicious for residual peripancreatic abscess. 6. Moderate amount of ascites. 7. Prominent gallbladder and gallbladder wall thickening which could be due to adjacent hepatic disease or cholecystitis. Please correlate with clinical data. 8. Dense right gluteal musculature multilobular mass suspicious for intramuscular hematoma. 9. Anasarca Dictated by: Rody Welch MD, PhD on 09/24/2016 at 15:32 12-lead ECG EKG is low-voltage, rate in the 80s, QTC is 665 Cardiac Echo Impressions Echocardiogram Report Interpretation Summary The left ventricle is normal in size. Left ventricular systolic function is normal without focal wall motion abnormalities. The ejection fraction is estimated to be 65-70%. The right ventricle is normal in size and function. The right ventricular systolic pressure is estimated at 39 mmHg assuming a right atrial pressure of 8 mm Hg. Both atria are normal in size. There is moderate tricuspid regurgitation. There is no other significant valvular heart disease. The aortic root is normal size. There are moderate-sized bilateral pleural effusions noted. Reading Physician:MEGHAN Additional Diagnostics Pleural ultrasound on 09/22/2014: IMPRESSION: Moderate right pleural effusion. Dictated by: Ben Everett RR Interpreted: Chula Fortune MD on 09/22/2016 at 14:07 Assessment & Plan 61-year-old female with extremely complicated course who presented to the emergency department with severe anemia of 6.5 dropping to 5.8 with no obvious source of bleeding, as well as severe nutrient deficiency and lactic acidosis. Delirium second to hyperammonaemia, no present on admission, ongoing: -Ammonia questionably secondary to possible portal shunting due to previous portal, superior mesenteric, and splenic vein thrombosis that has improved since previous CT scan -Head CT NEGATIVE on 09/23. -Morphine 2-4 mg IV q2h for pain -Continue lactulose through NG was increased to Q1 hour until patient starts having bowel movements -Rifaxmin. -Continues on Lovenox. --Nephrology to consult on 09/25. -Pulmonary consult on 09/25. Hypertension; ongoing -Patient's blood pressures are routinely above 150 -Lisinopril 20mg daily. -Changed metoprolol to carvedilol -Labetalol 20mg IV for SBP>180 Acute hypoxic respiratory failure; present admission; ongoing -Oxygen requirement likely due to anemia. Increased oxygen requirements on which have since stabilized but not improved. ABG on 09/23 showed: ph 7.543 , Co2 31, Po2 56.9, HCO3 27. -Chest xray 09/21: Persistent small pleural effusions, bibasilar consolidation or atelectasis, and groundglass opacities consistent with pulmonary edema or pneumonia. -Pleural ultrasound on 09/22/2016 showed moderate right effusion. Spoke with radiology who stated they could tap this for diagnostic but not therapeutic purposes. She would need to be off Lovenox for 12 hours or alternatively if on heparin 4 hours. -Hold lasix due to possible contraction alkalosis. -Chest x-ray pending. -CT OF THE CHEST REVEALS LARGE R PLEURAL EFFUSION AND PNEUMONIA VS ATELECTASIS --Pulmonary consult on 09/25. Anion gap metabolic alkalosis, not present on admission, ongoing: -AG 21. Possibly secondary to contraction alkalosis. -Stopped Lasix. -Neprhology to consult on 09/25. Persistently elevated troponins, present on admission: -Troponins have now stabilized and are trending down. Hypokalemia, not present on admission, ongoing: -On 09/23 potassium 3.2 -Replace with 40 meq IV -Repeat potassium in am. Anasarca secondary to protein deficiency/malnutrition; present on admission; ongoing -Patient presented with edema up to her sacrum with sparing of the abdomen; albumin of 1.3 on admission. No DVT on U/S. -She is status post PRBC's. -Albumin and Lasix have been stopped as there is a possible contraction alkalosis. Subacute liver abscesses; present on admission; ongoing -Patient had hepatic abscesses following MRSA bacteremia. -ID seeing patient: continue daptomycin and ertapenem. Micafungin per ID. -Procalcitonin down trending.. -Fungal cultures pending. -Continue IV antibiotics per ID. Acute blood loss anemia with macrocytosis and a mild elevated troponin; present admission; stable -Unknown source at this time with a questionable GI bleed; however, patient off Lovenox for 3 days at time of admission. -Reticulocyte count was 7.8 indicating that she is responding to this anemia, ruling out bone marrow suppression -Hemoccult 3 negative -Continue to monitor with CBC and transfuse as necessary. Left renal mass with reported capsule invasion; present on admission; stable -Diagnosed at [facility], however, unable to find biopsy results -Patient also had numerous thromboses and was placed on Lovenox, likely due to this mass -US at our facility showed: Solid left renal mass suspicious for underlying neoplasm. -Consulted urology and heme; appreciate their recommendations -CT ABD DEMONSTRATES INVASION OF THE LEFT RENAL VEIN Anion gap acidosis with elevated lactate; present admission; resolved: -Anion gap of 22 on admission with lactic acid of 4; patient also has a RTA. -Following transfusions will assess fluid balance -Recheck tomorrow Hypomagnesemia; present admission; resolved: -Continue to replace mag as needed. Right Pleural effusion; present admission; stable -Etiology unclear at this time; no known recent history of pneumonia; does have hepatic abscesses -Ultrasound on 09/16: Small right pleural effusion. -CT OF THE CHEST on 09/24 REVEALS LARGE R PLEURAL EFFUSION AND PNEUMONIA VS ATELECTASIS Diabetes type II; present admission; resolved -Patient does not appear to be on any medications outpatient -A1c 5.5 -Added humalog low dose correctional. Chronic Severe protein-calorie Malnutrition; present admission; stable -Patient has been severely ill for 9 months at one point was on TPN -BMI > 16, however patient with anasarca; obvious underlying severe nutritional deficiency -Dietitian consult requested -Continue albumin infusion -TPN started 09/25. Healing abdominal wound from colectomy; present on admission; stable -Allowed healing through secondary from colectomy in March 2016 -Wound consult ordered Disposition: Prognosis very grim. Discussed with Urban () about the likelihood of the patient passing away in the coming days. Discussion with Dr. Dolan (Nephrology) who does not feel dialysis is indicated. Patient has left renal mass is presumed to be cancer at this time but the patient condition has not allowed for any work up of the mass at this time. VTE Mechanical Devices: Anti-Embolic stockings Resuscitation Status: DNR/DNI:Do Not Resuscitate/Intubate Attending Statement The patient was seen and examined together with Dr. Powers on 09/25/16 and I have added additional information to the note above. Deny Powers DO Sep 25, 2016 09:10 Mariya Mock DO Sep 26, 2016 12:01
[2016-09-25] MEDS ORDERED: Glucose 40% Oral Gel 15 Gm Tube PO PRN (09:20)
[2016-09-25] MEDS: Micafungin Inj 150 MG in 0.9% Sodium Chloride 100 ML IV SCH (09:27)
[2016-09-25] MEDS: metroNIDAZOLE Inj 500 MG in IV Premix 1 EACH IV SCH ×2 (10:28→21:04)
[2016-09-25] MEDS ORDERED: TPN Per Pharmacist XX ONE (10:55)
--- NOTE | 2016-09-25 11:26 | NUR ---
NUTRITION FOLLOW UP: ASSESS: 61 YO F admitted with severe anasarca in the setting of severe hypoalbuminemia (1.3) and severe malnutrition. Pt was doing well and increasing her PO intake until 09/23 when her mental status started to decrease. Today, pt is obtunded and minimally responsive. She had a CT of her brain 09/23. There is concern that her decrease in mentation is related to her renal carcinoma that pt had previously decided not to treat. Due to decrease in mentation pt is not able to tolerate PO but she continues to have a general diet order. Per nursing note, pt required NGT to be placed for meds. Overnight her condition continues to deteriorate. She was started on lactulose by NG and ammonia level has improved. Her cognitive status though continues to decline and she is no longer answering questions or waking with sternal rub. She continues to receive medications by the tube when not on suction. When on suction the patient continues to have consistent yellow fluid drain from the tube. Planned consult today with nephrology concerning possible dialysis. Order received today to initiate TPN; attempted to page provider to discuss appropriate route for nutrition support. PMHx: Hx alcoholism, probable chronic pancreatitis, pseudocysts, possible abscesses, osteoporosis, type 2 diabetes, HTN, R. hip fracture with replacement, colonic rupture, peritonitis, sepsis syndrome (current colostomy). DIET: General. Documentation indicates that pt. has not taken PO since 09/21. LABS: Reviewed. Na 155, K+ 3.2, Glu 234, A1c 5.1, Ca 8.4, Ammonia 190, Alb 3.6. MEDICATIONS: Reviewed. Insulin, lactulose. GI: 625 ml output via colostomy 09/24. SKIN: Haris 14 ANTHROPOMETRICS: Current Wt: 51.3 kg, BMI: 22.1 kg/m2. Admit weight: 58.6 kg, IBW: 45.5 kg ESTIMATED NEEDS (MALNUTRITION). Calories: 1715-2000kcal (30-35kcal/kg BW) Protein: 85-105 g protein (1.5-1.8 g/kg BW) NUTRITION DIAGNOSIS: 1) Severe pro/kcal malnutrition related to prolonged, complicated hospital admission history, as evidenced by severe anasarca, visible muscle/fat loss, likely renal cancer diagnosis - PERSISTS. 2) Inadequate oral intake related to AMS as evidence by pt not alert enough for safe PO and need for NGT for meds. - PERSISTS. INTERVENTION: 1) Pt continues to have a General diet order. Recommend consider changing diet order to NPO if pt is not alert enough for safe PO. 2) On 09/21 spoke with pt about high kcal/pro nutrition therapy. Discussed eating smaller, more frequent meals and tips to maximize pro/kcal intake when appetite is down. Provided high kcal/pro recipe book and high kcal/pro nutrition therapy handout. Pt verbalized understanding. 3) Nutrition support. TPN ordered this morning; however, pt. does not have PICC line which would have to be placed, thereby missing deadline to initiate TPN today. Pt. has functional GI tract, and NG enteral feeding is most appropriate route for nutrition support. Recommend Vital 1.5 enteral formula at trophic rate, as pt. is at significant risk for refeeding. Recommend Vital 1.5 at 10 ml/hr x 24 hr. Once tolerance established, recommend advance 5 ml every 12 hr. to goal rate 50 ml/hr. Flush dose recommendations per Nephrology. Enteral feeding at goal rate would provide 1725 kcal, 78 g protein, meeting low end of nutrition needs. 4) In the event TPN order continues active, recommend 25% goal macronutrient rate until refeeding risk resolved: 83 g dextrose, 21 g amino acid, no lipids. Once TPN tolerance established, recommend advance slowly to goal rate 330 g dextrose, 85 g amino acid, 35 g lipids, providing 1812 kcal, 85 g amino acid, meeting 100% nutrient needs. MONITOR/EVALUATE: Mentation, orders for nutrition support, wt, labs, POC, GI/nutrition status. Follow per high nutrition risk guidelines. Addendum: 09/25/16 at [address] Per order from Dr. Mock, TPN to proceed. Spoke with Pharmacy to attempt to initiate TPN today, despite past deadline. Will monitor closely for refeeding risk. Per authorization from Dr. Mock, will order NPO status.
[2016-09-25] MEDS ORDERED: Dextrose 5% 1,000 ML IV SCH (12:00)
--- NOTE | 2016-09-25 12:34 | PROG NOTE ---
[address] [address] PROGRESS NOTE PATIENT: HUNG JAMES : 1955 MR#: [id number] ADMIT: 09/16/2016 JOB ID: [id number] DATE: 09/25/2016 INFECTIOUS DISEASE FOLLOWUP NOTE: REASON FOR FOLLOWUP: MRSA bacteremia, hepatic micro abscesses, chronic liver disease, hepatic encephalopathy with decreased mental status, multiple venous clots. INTERVAL HISTORY: The patient continues to have a profound and worsening encephalopathy. She has basically become unarousable during the night, and this continues about 72 hours of unexplained deterioration in her mental status. The prevailing theory here is that she has developed a severe hepatic encephalopathy, although the exact precipitant for that is unclear. Yesterday, our CT scans of the chest, abdomen and pelvis demonstrated that most of the problems seen on prior CTs had resolved, though she still had a large pleural effusion and a small peripancreatic fluid collection but most of the peripancreatic fluid collection seen previously had resolved, as had hepatic micro abscesses, and the clots in her venous circulation also appeared largely better. I discussed this case in detail at the bedside with the attending physician and house staff caring for her today. The patient is currently unarousable and responds only to deep stimulation and just moans. No additional history is available from her. PHYSICAL EXAMINATION: Reveals a critically ill woman lying supine in the ICU. She was febrile to 38.4 yesterday morning and has been afebrile since. Her pulse is 82, respiratory rate in the mid 20s, blood pressure 169/89. She is now up to 15% on the OxyMask to maintain her saturation which represents a dramatic step-up in her oxygen requirements. She has what appears to be minimal scleral icterus. Oral cavity and oral membranes very dry. Face mask oxygen is flowing. Her neck is supple. The left IJ access is apparently uninfected, at least by observation. The lungs with decreased breath sounds at the right base. Cardiac tones without new murmur. Abdomen with the colostomy, as well as the dressed mid abdominal wound. The lower extremities without rash or edema. LABORATORIES: Include a white count 9800 today, completely normal differential on the white count. Creatinine 0.78, glucose 230. LFT completely normal. Bilirubin 0.7. Ammonia level had been as high as 404 yesterday. It is now down to 190. Albumin 3.6. Procalcitonin 1.71, down from a level of 100 when she was admitted a week ago. Micro studies include fungal blood cultures done yesterday which are negative at 24 hours. A C. diff is negative, and a urine culture with 50,000 to 100,[address] scan of the chest, abdomen and pelvis that we had ordered yesterday was carefully reviewed. It shows a moderate right-sided pleural effusion and a small left effusion, as well as cardiomegaly and some pulmonary edema. The hepatic micro abscesses seen on the previous CT scan are completely gone. That previous CT scan was three weeks ago. Multiple peripancreatic fluid collections seen on the prior CT are gone, though one remains and this is 1.3 cm near the head of the pancreas which may represent an abscess. Small amount of ascites is seen. There is a prominent gallbladder and gallbladder wall thickening which is likely on the basis of liver disease, and a right gluteal mass, which is prior a hematoma due to an injection. IMPRESSION: This remains an absolutely confusing case. This woman presented about 10 days ago after a long hospital stay at [facility] and only a couple of days out of the hospital. She was admitted for a wide variety of problems and treated aggressively with daptomycin and ertapenem for what was felt to be the residual of a life-threatening methicillin-resistant Staphylococcus aureus bacteremia, as well as hepatic microabscesses. We also addressed with aggressive anticoagulation her multiple venous clots. Over the first week or so she was here in the hospital, she has steadily improved, though she remains, of course, very ill and has, among other things, an underlying renal malignancy, which is invading the renal vein. Nonetheless, she was improving up until about Tuesday of this week when she started to have some fairly subtle abnormalities in speech. Over the past 72 hours, she has steadily declined to become more and more encephalopathic. This seemed to be associated with a dramatic increase in her serum ammonia, which is now being aggressively addressed, but her mental status continues to decline and she continues to require more and more oxygen to maintain her sats. From an infection point of view, it seems like things have gone very well. Her blood cultures have been negative, and her CT followup shows that the micro abscesses have completely resolved. Her methicillin-resistant Staphylococcus aureus bacteremia has been well controlled and we are nearing the end of our long course of broad-spectrum antibiotics as was recommended by the infectious disease physicians in [place] in which I have agreed with. I am concerned that she could have developed a fungemia or disseminated fungal infection causing the fever spikes, which occurred on the and for that reason, we have checked fungal blood cultures, as well as urine culture and Fungitell. The urine culture is growing what appears to be vilma, and the wound swab from the shallow open abdominal wound is also growing vilma, which suggests, but does not prove, that there could be an ongoing systemic vilma infection. Because of that, we have initiated therapy with micafungin. I am also concerned about the possibility that ertapenem could be contributing to her mental status changes but it would be quite odd, as she has been on this antibiotic for a long time, even before arriving at this hospital 10 days ago but we have seen cases certainly of ertapenem-induced mental status changes. Because of the possibility that antibiotics may be playing some role in her mental status changes, will go ahead and do a complete antibiotic changeover today. RECOMMENDATIONS: 1. Will discontinue the daptomycin and ertapenem she has been receiving. 2. I plan to start ceftaroline, which covers MRSA and also has some gram-negative coverage, in addition to Flagyl. The Flagyl can be useful as a hepatic encephalopathy drug, though it is not good for long-term use due to its neurotoxicity. I think its use in this situation is reasonable. 3. Will continue with the micafungin for what may be disseminated fungal infection. 4. The team is addressing aggressively her apparent hepatic encephalopathy. 5. I did discuss with them the possibility of a tapping a right pleural effusion. Though I think it is highly unlikely this represents an empyema in view of the 99% drop in her procalcitonin, I suppose that is possible. It is also possible that tapping that pleural effusion may improve her work of breathing, though I am inclined to think that it is not a major factor.
[2016-09-25] MEDS: Insulin LISPRO 300 Unit/3 mL Inj SUBQ SCH ×3 (12:57→23:25)
--- NOTE | 2016-09-25 13:04 | PCM.PHAPRO ---
Progress Weakness and anasarca PARENTERAL NUTRITION ORDERS 1 25-Sep-16 Standard Hang Time: 2100 Substrates Total kcal: 366 AMINO ACIDS 21 g DEXTROSE 83 g Total Volume (mL): 1250 LIPIDS 0 g Sterile Water for Injection QS mL To Infuse Over (hrs): 24 Total Volume 1250 mL At at a rate of (mL/hr): 52 Additives Sodium Chloride 0 mEq "typical" daily requirements Sodium Acetate 20 mEq Sodium 50-120mEq Potassium Chloride 40 mEq Potassium 60-120mEq Potassium Phosphate 40 mEq Phosphate 20-40mEq Calcium Gluconate 8 mEq Magnesium 8-32mEq Magnesium Sulfate 16 mEq Calcium 9-22mEq Acetate* 80-120mEq Chloride* 80-120mEq Regular Insulin units *Depending on acid-base status Famotidine 20 mg Multivitamins 1 std dose Insulin Regimen Trace Elements 1 std dose none Thiamine 100 mg Regular Low Intensity Subcut Folic Acid 1 mg Regular Medium Intensity Subcut Ascorbic Acid mg Regular High Intensity Subcut Regular Insulin Infusion Other: Special Instructions: To be infused via central line only. For delay or inturruption of TPN contact the pharmacist for alternative replacement solution. Signature Date: 0 0 [facility] William Mercer Pharm.D Sep 25, 2016 13:04
[2016-09-25] MEDS ORDERED: Darbepoetin Alfa 40 mCg/0.4 mL Inj SUBQ ONE (13:30)
--- NOTE | 2016-09-25 14:48 | CONS ---
[address] [address] CONSULTATION REPORT PATIENT: HUNG JAMES : 1955 MR#: [id number] ADMIT: 09/16/2016 JOB ID: [id number] DATE OF SERVICE: 09/25/2016 NEPHROLOGY CONSULTATION: REQUESTING PHYSICIAN: Dr. Ravi. REASON FOR CONSULTATION: Management of hypernatremia. PRESENT ILLNESS: This is a 61-year-old lady with extremely complex recent medical history who was brought to the emergency department by her after found to have severe malaise. The patient has been admitted since September 16, 2016. At the moment she is very obtunded. There is no family member available at the bedside. I have reviewed her medical records and other provider accounts. I have reviewed her history also from Dr. Sampson's consultation note on September 14, 2016. He had a very thorough HPI. The patient has the underlying disease of type 2 diabetes, hypertension, osteoporosis and alcohol abuse. She has had complicated recent past medical history, in which it started in late November 2015 when she had a right hip fracture. At that time she underwent osteoplasty at [facility]. Subsequently in March 2016, she was found to have colonic obstruction and underwent colectomy with ostomy. At that time she was hospitalized over the three months. She was diagnosed with MRSA sepsis, multiple micro abscesses involving the liver and pancreas. 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 Unfortunately left renal solid mass was accidentally discovered. Eventually she got better and discharged. Dr. Sampson was contacted to provide IV antibiotics here at the [facility]. She came to the hospital September 16, 2016. The patient was found to be very weak. Initial workup showed hemoglobin of 6.5. According to the initial assessment, the patient was found to have generalized edema with severely low serum albumin. The initial albumin level was 1.3. Initially the patient received IV diuretics along with albumin helping for anasarca. She has received blood transfusion as well. Dr. Sampson was reconsulted. The patient has been on daptomycin and ertapenem. Regarding her renal mass, urology was consulted. Due to unstable medical condition, she is not a good candidate for any surgical intervention at the moment. In terms of her metabolic disorder, she came in with the bicarbonate level of 16 with an anion gap of 22 and lactate level of 4.0. Her current bicarbonate is 22. Of note, her serum sodium has trended down. The current level is 155. She has had persistent hypokalemia. On September 23, 2016, the patient became confused and disoriented. Primary team checked ammonia level which showed a high level, 167. Lactulose was started on that day. On September 24, her ammonia level got worsened to 404. Her mentation became worsened. She is obtunded. I was contacted to see if hemodialysis has any roll to remove ammonia and if it will improve her level of consciousness. A repeat serum ammonia this morning was 190. However, the patient remains obtunded and unresponsive to deep pain stimuli. PAST MEDICAL HISTORY: 1. Right hip fracture status post arthroplasty. 2. Osteoporosis. 3. History of hypertension. 4. Alcohol abuse. 5. Recent history of MRSA sepsis. 6. Prolonged hospital stay over three months at the [facility] in March 2016. 7. Micro abscess of liver and elsewhere. 8. 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 9. A 6 cm left renal mass. 10. History of stress-induced cardiomyopathy. 11. Possible chronic pancreatic pseudocyst. 12. Alcohol abuse, suspected chronic liver disease. 13. Colonic obstruction status post colectomy and ostomy. SURGICAL HISTORY: 1. Status post right hip arthroplasty. 2. Surgical history colectomy with ostomy. FAMILY HISTORY: Unable to obtain. SOCIAL HISTORY: Positive for marijuana use, former smoker, history of alcohol abuse. HOME MEDICATIONS: Calcium citrate, Lovenox, subcu magnesium oxide, potassium chloride, sodium bicarbonate, ertapenem and daptomycin. PHYSICAL EXAMINATION: Vitals: Temperature 37.8, pulse 76, respiratory rate 26, blood pressure 157/98, O2 sat 97% on Oxy Mask 15%. General appearance: Obtunded. Unresponsive to painful stimuli. HEENT: No pallor. No jaundice. Dry mucous membranes. Left IJ triple-lumen in place. Heart: Regular rhythm. Normal S1, S2. No murmurs, rubs or gallops. Lungs: Decreased breath sounds at bases. No wheezing. No rhonchi. Abdomen: Soft. Colostomy noted. Surgical incision at the midline positive for greenish draining. Active bowel sounds. Extremities: Trace edema on the sacral area. No rash. No excoriations. LABORATORY: Sodium 155, potassium 3.2, chloride 108, bicarbonate 27, BUN 22, creatinine 0.78. Glucose 234, lactic acid 1.8. Calcium 8.4, phosphorus 3.3, magnesium 2.1. Ammonia 190. CBC: Hemoglobin 9.8, WBC 9.8, platelets 368. IMPRESSIONS: 1. Hypernatremia. The patient initially presented with generalized edema. She has received IV diuretics along with the albumin. According to my physical examination today, the patient appears to be hypovolemic. The etiology of hypernatremia is likely due to free water losses. At this point, I would like to start her on D5 water at 150 cc/hour along with free water flushes via NG tube. Recommend to mix IV medications with D5 water instead of normal saline. 2. Hypokalemia secondary to diuretic-induced. Continue to replace with potassium chloride. 3. Metabolic encephalopathy likely due to hepatic encephalopathy, hyperammonemia. Of note, the patient has history of alcohol abuse now with portal and superior mesenteric vein thrombosis. I wonder if she has underlying disease of the liver cirrhosis. The etiology of the thrombosis could be related to possibly a malignancy of the left renal mass or liver cirrhosis. Performing dialysis to reduce her ammonia level is a very creative idea. However, she seems responding with the lactulose. I am afraid that initiating hemodialysis may introduce further complications including line infections and cardiac related issue while she is on dialysis. I would like to see how she is doing with the lactulose for now. I would not proceed with any renal replacement therapy at the moment. 4. Severe protein calorie malnutrition. 5. Severe deconditioning. 6. Recent history of micro hepatic abscesses. 7. Metabolic alkalosis. 8. Pleural effusion. PLANS: 1. Start D5 water 150 cc/hour. 2. Start free water flushes via NG tube. 3. Agree to start TPN to improve the nutrition. 4. We will continue to monitor. I would defer hemodialysis for now since she is seems improving with the lactulose. Recommend GI consultation to assist in treatment of the hepatic encephalopathy. 5. Will give her a dose of Aranesp treating for anemia of chronic kidney disease. Thank you for allowing me to participate in the care of your patient. We will monitor along with you. MTDD
--- NOTE | 2016-09-25 17:04 | CONS ---
[address] [address] CONSULTATION REPORT PATIENT: HUNG JAMES : 1955 MR#: [id number] ADMIT: 09/16/2016 JOB ID: [id number] DATE OF SERVICE: 09/25/2016 REQUESTING PHYSICIAN: Mariya Mock DO. REASON FOR CONSULTATION: Overview of case. HISTORY OF PRESENT ILLNESS: The patient is a 61-year-old, female, unable to give any history at this time as she is essentially unresponsive. Apparently her present problems began in the fall of 2005, when patient suffered a fracture of her right hip secondary to a fall. Did reasonably well, but in March 2016, suffered a colonic rupture secondary to obstipation. Underwent a colectomy and ostomy, remaining in the hospital for a number of weeks, much of which was on a ventilator. Developed acute kidney injury during this time. Subsequently, presented in August 2016, with increasing abdominal pain. Was found to have MRSA. No evidence for valvular involvement, though she had intrahepatic abscesses as well as possible pancreatic abscess. She was also found to have thrombosis of portal vein, splenic vein and superior mesenteric vein. She was also found to have a 5.8 cm left renal mass. The patient was discharged to complete antibiotic therapy as an outpatient. However, she became extremely weak, unable to lift her legs against gravity. Had increasing swelling. There was some dyspnea on exertion. No abdominal pain. She was found to be severely anemic with a hemoglobin of 6.5. Thrombocytosis was present. 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 Receiving ertapenem and daptomycin. PAST MEDICAL HISTORY: Renal tubular acidosis, hypertension, chronic renal insufficiency. The patient was admitted. Chart mentions chronic alcohol abuse until November 2015. Possibly chronic pancreatitis in this setting. Diabetes mellitus type 2. Hypertension. Oncologist evaluation strongly suspected primary renal cell carcinoma. She was not felt to be a candidate for nephrectomy. IMAGING STUDIES: Include a recent CT of chest abdomen and pelvis, which shows a large right pleural effusion, smaller left-sided pleural effusion with ground-glass opacities in the upper lobes of both lungs. There is cardiomegaly. Resolution of the hepatic abscesses and a marked diminution in the peripancreatic fluid collection. A moderate amount of ascites is present. Prominent gallbladder and gallbladder wall thickening. Anasarca with a dense right gluteal muscular multilobular mass suspicious for an intramuscular hematoma. Brain CT shows no acute intracranial abnormalities. Studies of her upper extremities show a venous thrombosis involving the axillary and two brachial veins which is occlusive and a thrombosis in the left arm in one of the paired basilic veins. Chest ultrasound showed a moderate right pleural effusion and no left pleural effusion. However, it was felt that only a diagnostic but not a therapeutic tap could be accomplished. Abdominal ultrasound shows increased hepatic echogenicity likely related to fatty infiltration of the liver. Gallbladder sludge with mild thickened gallbladder wall. Intrahepatic inferior vena cava is patent. CURRENT LABORATORY DATA: Shows a white count of 9800 with 68 polymorphonuclears, 24 lymphocytes, six monocytes. Hemoglobin 9.8 and relatively stable. Platelet count 368,000 and stable. Sodium 155, with the patient currently receiving D-5-W IV infusion, potassium 3.2, chloride 108, CO2 is 27, BUN 22. Creatinine 0.78. Lactic acid 1.8. Calcium 8.4. Phosphorus normal at 3.3. Magnesium 2.1. Total bilirubin 0.7 with a direct bilirubin of 0.2. Transaminases are normal. Alkaline phos is normal at 125. Ammonia level on 09/23 was 167; 09/24 was 404, and 09/25 190 mcg/dL with upper limits of normal being 53. Albumin is 3.6. Procalcitonin 1.7. Markedly decreased from an apogee of 100 ng/mL on the 17 of September. Currently PTT 56. Patient currently receiving Lovenox 60 mg q.12. Previous studies show a fibrinogen of 94 on admission, on 09/17/2016. Coagulation results consistent with presence of a lupus anticoagulant. In addition, mixing study shows some correction suggesting deficiency of one of the common pathway factors. Serology for antiphospholipid syndrome is negative. Hepatitis B surface antigen is negative, as is hepatitis C antibody. HIV is nonreactive. Gram stain of an abscess taken from the abdominal wound growing Carmel albicans from 09/17/2016. Urine shows urine yeast and given those two parameters and her underlying condition, micafungin has been given. The patient also currently receiving antibiotic regimen of ceftaroline and metronidazole. Blood cultures have been negative. Stool for C. difficile is negative. Blood for fungal cultures pending. MRSA PCR on nasal swab is negative. ALLERGIES: NONE KNOWN. PAST MEDICAL HISTORY: Taken from progress notes noted throughout the above H and P. Urology consultation indicates patient is not a surgical candidate. REVIEW OF SYSTEMS: Unable to obtain. Notes indicate that she is a former smoker. No other social, geographic, work history available. OBJECTIVE: Temperature 37.8. Pulse 76-84, respiratory rate 26 with Kussmaul-type respirations. Blood pressure 157/98. O2 sat on 15 L by OxyMask is 97%. I and O shows 1.8 L in, 2.3 L out with a cumulative I and O of 17 L in, 27 L out for a balance of -9.9 L. Twenty-two liters of that output is urine. General appearance: Cachectic female, lying in bed. Responds to pain with only slight withdrawal mechanisms. Has some rigidity of the right upper extremity but is able to be extended. No asterixis. Eyes: Conjunctivae are pink. No scleral icterus. Pupils about 3 mm and reactive. Pupils react to light. EOMs could not be checked. Nose could not be examined. Throat is quite dry. Mucous membranes are slightly pale. No oropharyngeal tracking. Lymph nodes not palpable. Thyroid not palpable. Chest: Trachea is midline. There are fairly good breath sounds on the left. Crackles throughout the entire left lung field. Right lung has some bronchial breath sounds at the right lower lung field extending about snf up with crackles in the right upper lung field. No use of accessory muscles. As mentioned previously, Kussmaul-type breathing. Heart: Regular rhythm. Heart tones normal. [place]. Abdomen soft. Quiet. Appears to have some right upper quadrant tenderness. There is fullness in the right upper quadrant which I think is her liver edge. Spleen not palpable. No other masses were palpable. Colostomy present and is quite pink and appears well perfused. Extremities: Marked muscle loss. There is some slight withdrawal of the lower extremities to painful stimuli. LAB DATA: Noted as per above. ASSESSMENT: 1. Hyperammonemia. Etiology unclear. Does not appear to have Budd-Chiari. Does have some clot in the portal and splenic system as well as the superior mesenteric system. In addition, there might be some hepatic injury due to the presence of the heterogeneous enhancement. In addition, there is some question as to acalculous cholecystitis. However, I do not think that would account for an ammonia level of 404. Will see if we can further elucidate the etiology for the significant elevation in ammonia. Likely accounts for some of her mental status issues. 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 Certainly, the other fluid and electrolyte issues also contribute to her altered mental status. 2. Cursory view of acid-base status indicates an anion gap present in the setting of a mild metabolic as well as a mild respiratory alkalosis resulting in a moderate alkalemia. In addition, mention is made of underlying RTA, type unidentified. 3. Pleural effusions. Has bilateral pleural effusions. In addition, there is significant ground-glass opacification, both lungs, which would I am sure result in significant pulmonary dysfunction with essentially both lungs being 100% involved in either atelectasis from pleural fluid or an infiltrative process. She is recovering from MRSA bacteremia. This seems to be going well with evidence of resolution of multiple microabscesses or significant improvement. Falling procalcitonin encouraging. 4. Multiple emboli. Seems to be quite hypercoagulable with clots in the mesenteric and portal venous system and now clots, bilateral upper extremities. Possible lupus anticoagulant. In addition, probably has renal cell carcinoma. I do not see that she is a candidate for any type of biopsy and not even considering her candidacy for therapy. Pleural effusions are only accessible for a diagnostic, not a therapeutic tap. Do not have an etiology for the infiltrative lung problem. Some element of cardiomegaly. Echocardiogram done eight days ago shows normal size left ventricle with good LV systolic function without focal wall motion abnormalities, with an ejection fraction of 65% to 70%. Right ventricle normal in size. Right ventricular systolic pressure mildly elevated at 39. Atria normal in size. Moderate tricuspid regurgitation but no other significant valvular heart disease. CONSIDERATIONS: 1. I am not sure a diagnostic tap of the pleural fluid would help us appreciably. In addition, she is on Lovenox and seems to be quite sensitive to its absence. Very procoagulant and not sure that would not particularly help us in the face of her other comorbidities. 2. Not sure the ascites is tappable, but that too would be subject to the aforementioned clotting problems. She is on broad-spectrum antibiotics that should take care of any degree of bacterial peritonitis. Whether this represents a malignant peritonitis is unclear. 3. Left renal mass, likely renal cell carcinoma. It has protean manifestations and complications and may very well be at the root of some of the problems we are having now. 4. Fluid and electrolyte problems. Having free water deficit replaced. Sodium up to 155 which may be playing some role in the patient's altered mental status, though I suspect it is not so severe as to result in her obtundation. She is essentially unresponsive at this point. May be related more to the unexplained ammonia level with hepatic dysfunction. 5. Consideration for repeating a liver evaluation with clotting studies to see where we are with regard to her hepatic function, both synthetic and her clotting capabilities at this point. Pleural effusions could conceivably be bleeding, though she is maintaining her hemoglobin fairly well given her presenting value of 6.5, maybe as low as 5.8 g/dL on admission. Overall, I think there is extremely poor prognosis. I would think multiple invasive modalities would need to be employed, none of which could she tolerate. Briefly spoke with the patient's . He was quite fatigued, having been up all night, and was going home to get some rest. We agreed to discuss the situation together tomorrow. He is, I think, resigned to a poor outcome. Thank you so much, Dr. Mock, for asking me to see this most unfortunate individual. Will help in any way we can to help improve a dismal situation. TIME SPENT: 93 minutes.
--- NOTE | 2016-09-25 17:26 | NUR ---
Breathing/O2 Pt had been on 15L Oxymask around 95% for most of the day. Around 1700 Pt's O2 dropped to low 80's. RR of 26, and using accessory muscles to breath more than this morning and moaning loudly. Pt stil unresponsive and unable to follow commands. Lung sounds still has faint crackles. Reposition pt and sat her up a bit. 1mg Morphine IVP. MD mao, asked for the D5W to be turned down from 150 mls/hr to 75 mls/hr and if the pt remained in the low 80's to call respiratory to see if High Flow would be an option. Rechecked pt 30 min later and breathing is slightly better, still moaning, O2 currently at 88%. Will continue to monitor. Addendum: 09/25/16 at 1822 by MARIKA CAUSEY RN Stat ABG and if O2 remains in the low 80's possible High Flow will be needed. Currently 90% RR 27
--- NOTE | 2016-09-25 18:23 | ABG ---
DateTimeAnalyzed 18:14:56 -_ pH ____7.489 - 7.350 7.450 pCO2 ___36.6__ -mmHg 35.0 45.0 pO2 ___54.4__ -mmHg 69.0 116 HCO3- ___27.8__ -mmol/L 22.0 26.0 ABE ____4.1__ -mmol/L tHb ___10.4__ -g/dL O2Hb ___87.4__ -% COHb ____1.3__ -% 1.5 MetHb ____0.0__ -% sO2 ___88.5__ -% FIO2 ___21.0__ -% Drawn By RC - Date/Time Notified____ 18:23:00 -_ Spontaneous_RR 26 -b/min Liter_Flow ___15.00_ -L/min Oxygen Device 1 __OXYMASK - Notified By RC - Notified Whom ___DR. TINOCO - K+ ____3.4__ -mmol/L tO2 ___12.9__ -Vol% Jesse test N/A -
[2016-09-25] MEDS ORDERED: Total Parenteral Nutrition 1 BAG IV SCH (21:00)
[2016-09-25] MEDS: Nystatin 100,000 Unit/Gm 15 Gm Powder TOPICAL PRN (21:06)
[2016-09-25] MEDS: Ceftaroline Inj 600 MG in Dextrose 5% 250 ML IV SCH (21:44)
[2016-09-25] MEDS ORDERED: Insulin LISPRO 300 Unit/3 mL Inj SUBQ ONE (23:10)
[2016-09-26] VITALS (8 sets, daily range): BP systolic 137–160; BP diastolic 78–102; PULSE 76–95; RESP 20–24; O2SAT 85–98
[2016-09-26] MEDS: Lactulose 20 Gm/30 mL 30 mL Syrup PO SCH ×3 (04:36→18:30)
[2016-09-26 04:58] LABS: BASOPHILS % (AUTO) 0.4 % (0-3); EOSINOPHILS % (AUTO) 0.2 % (0-5); MONOCYTES % (AUTO) 5.1 % (4-12); Mean Corpuscular Hemoglobin 31.1 pg (27.0-35.0); Mean Corpuscular Volume 101.9 fL (81-100); NEUTROPHILS % (AUTO) 69.6 % (40-74)
[2016-09-26 05:12] LABS: Platelet Count 404 bil/L (150-400)
[2016-09-26 05:29] LABS: Magnesium 2.3 mg/dL (1.6-2.6)
[2016-09-26] MEDS ORDERED: Insulin LISPRO 300 Unit/3 mL Inj SUBQ ONE (05:35)
--- NOTE | 2016-09-26 05:49 | NUR ---
Respiratory/Blood Glucose Pt was placed on Hiflow 60 and 100 as pt was unable to maintain SpO2 above 85% on 16L Oxymask and Pt was moaning and grunting with RR 25-35 with periods of apnea. 1mg of Morphine given at this time for comfort. Pt able to maintain SpO2 97-100% on Hiflow. Pt started on TPN this shift as well as Q4 free water flushes through NG tube. Pt BG 379, 1x order for 7units SubQ Lispro given, at reassessment pt BG 279. notified and orders for another 1x dose 7units Lispro given and awaiting reassessment. VSS and Tele SR 70's to 90's.
[2016-09-26] MEDS ORDERED: Pantoprazole 4 mg/mL 10 mL Inj IVPUSH SCH (07:30)
[2016-09-26] MEDS ORDERED: Micafungin Inj 150 MG in Dextrose 5% 100 ML IV SCH (08:30)
[2016-09-26] MEDS: metroNIDAZOLE Inj 500 MG in IV Premix 1 EACH IV SCH (09:32)
[2016-09-26] MEDS: Potassium Chloride 20 mEq SR Tablet PO SCH (09:35)
[2016-09-26] MEDS: Nystatin 100,000 Unit/Gm 15 Gm Powder TOPICAL PRN (09:44)
[2016-09-26] MEDS: Ceftaroline Inj 600 MG in Dextrose 5% 250 ML IV SCH (09:59)
[2016-09-26] MEDS: Nystatin 100,000 Unit/mL 5 mL Suspension PO SCH ×3 (10:16→18:00)
[2016-09-26] MEDS: Insulin LISPRO 300 Unit/3 mL Inj SUBQ SCH (10:18)
--- NOTE | 2016-09-26 10:32 | PCM.PHAPRO ---
Progress Weakness and anasarca PARENTERAL NUTRITION ORDERS 2 26-Sep-16 Standard Hang Time: 2100 Substrates Total kcal: 366 AMINO ACIDS 21 g DEXTROSE 83 g Total Volume (mL): 1250 LIPIDS 0 g Sterile Water for Injection QS mL To Infuse Over (hrs): 24 Total Volume 1250 mL At at a rate of (mL/hr): 52 Additives Sodium Chloride 0 mEq "typical" daily requirements Sodium Acetate 20 mEq Sodium 50-120mEq Potassium Chloride 40 mEq Potassium 60-120mEq Potassium Phosphate 40 mEq Phosphate 20-40mEq Calcium Gluconate 8 mEq Magnesium 8-32mEq Magnesium Sulfate 16 mEq Calcium 9-22mEq Acetate* 80-120mEq Chloride* 80-120mEq Regular Insulin 10 units *Depending on acid-base status Famotidine 20 mg Multivitamins 1 std dose Insulin Regimen Trace Elements 1 std dose none Thiamine 100 mg Regular Low Intensity Subcut Folic Acid 1 mg Regular Medium Intensity Subcut Ascorbic Acid mg Regular High Intensity Subcut Regular Insulin Infusion Other: Special Instructions: To be infused via central line only. For delay or inturruption of TPN contact the pharmacist for alternative replacement solution. Signature Date: HUNG JAMES [facility] William Mercer Pharm.D Sep 26, 2016 10:31
--- NOTE | 2016-09-26 12:26 | PCM.PNMED ---
Subjective Date of Service Sep 26, 2016 Subjective Pt continues to deteriorate. has been with her for most of the time since our discussion on Tuesday. Sternal rub does not elicit a response. Pupils are reactive. Ammonia is persistent despite large output through colostomy. Abx changed by Dr. Sampson to Ceftaroline, Metronidazole, and Micafungin for fungal coverage Exam Vital Signs Vital Sign - Last Date Time Temp Pulse Resp B/P Pulse Ox O2 Delivery O2 Flow Rate FiO2 09/26/16 08:47 77 09/26/16 08:10 36.8 24 142/78 92 HFO2 NC 70 09/26/16 07:30 50 Intake and Output 09/25/16 09/25/16 09/26/16 Cumulative From/Thru 15:00 23:00 07:00 09/16/16 07:16 - 09/26/16 06:50 Intake Total 1942 ml 1579 ml 87248 ml Output Total 650 ml 1025 ml 17877 ml Balance 1292 ml 554 ml -8063 ml Intake Oral 0 ml 0 ml 8265 ml IV Total 1942 ml 616 ml 05028 ml TPN/PPN 463 ml 463 ml Packed Cells 1145 ml Tube Irrigant 500 ml 500 ml Output Urine Total 200 ml 250 ml 74397 ml Stool Total 450 ml 775 ml 4575 ml Gastric Drainage Total 1010 ml Estimated Blood Loss 400 ml # Bowel Movements 0 Exam Gen: unresponsive to sternal rub or calling her by name HEENT: no scleral icterus, pupils reactive but sluggish Cardio: regular rate and tachy Resp:Crackles present bilaterally, coarse breath sounds Abd: Secondary intention ulcer healing, green discharge surrounding site, ostomy is active Ext: no edema IVs and Medications Medications Reviewed: Medications were reviewed in detail Lab and Diagnostics Result Diagram: 09/26/16 0451 09/26/16 0451 X-Rays, CTs and MRIs Chest x-ray IMPRESSION: 1. Continued small right-sided pleural effusion and mild atelectasis. Superimposed pneumonia is difficult to exclude. 2. Unchanged right-sided PICC line catheter. Dictated by: Brendan Marley M.D. on 09/16/2016 at 8:09 PROCEDURE: US ABDOMEN IMPRESSION: 1. Increased hepatic echogenicity noted likely related to fatty infiltration of the liver but other sources of hepatocellular disease cannot be excluded. Recommend clinical correlation. 2. Solid left renal mass suspicious for underlying neoplasm. Recommend renal protocol CT for further assessment. 3. Small right pleural effusion. 4. Gallbladder sludge with mild thickened gallbladder wall. Developing cholecystitis cannot be excluded. Correlate clinically. Approved by: Rody Welch MD, PhD on 09/16/2016 at 21:49 PROCEDURE: US VENOUS ARM DUPLEX, BILATERAL IMPRESSION: Occlusive thrombus present within the right and left upper extremities. Marciano Walden telephoned with the results by the title processor at 1624 hrs. 09/16/2016. Approved by: Rody Welch MD, PhD on 09/16/2016 at 16:46 PROCEDURE: US VENOUS LEG DUPLEX BILATERAL IMPRESSION: No DVT found bilaterally. Approved by: Bryant Ramsey M.D. on 09/16/2016 at 17:18 Chest xray 09/21/2016: IMPRESSION: 1. Persistent small pleural effusions, bibasilar consolidation or atelectasis, and groundglass opacities consistent with pulmonary edema or pneumonia. Dictated by: Jb Enriquez M.D. on 09/21/2016 at 9:22 CT Chest/Abd/Pelvis 1. Moderate to large right-sided pleural effusion. Small left-sided pleural effusion. 2. Cardiomegaly. 3. Probable pulmonary edema. 4. Hepatic microabscesses identified on prior CT scan obtained 09/03/16 have resolved. 5. Multiple peripancreatic fluid collections identified the prior CT scan have almost completely resolved. A single, approximately 1.3 cm maximum diameter fluid collection is noted adjacent to the head of the pancreas which is suspicious for residual peripancreatic abscess. 6. Moderate amount of ascites. 7. Prominent gallbladder and gallbladder wall thickening which could be due to adjacent hepatic disease or cholecystitis. Please correlate with clinical data. 8. Dense right gluteal musculature multilobular mass suspicious for intramuscular hematoma. 9. Anasarca Dictated by: Rody Welch MD, PhD on 09/24/2016 at 15:32 12-lead ECG EKG is low-voltage, rate in the 80s, QTC is 665 Cardiac Echo Impressions Echocardiogram Report Interpretation Summary The left ventricle is normal in size. Left ventricular systolic function is normal without focal wall motion abnormalities. The ejection fraction is estimated to be 65-70%. The right ventricle is normal in size and function. The right ventricular systolic pressure is estimated at 39 mmHg assuming a right atrial pressure of 8 mm Hg. Both atria are normal in size. There is moderate tricuspid regurgitation. There is no other significant valvular heart disease. The aortic root is normal size. There are moderate-sized bilateral pleural effusions noted. Reading Physician:MEGHAN Additional Diagnostics Pleural ultrasound on 09/22/2014: IMPRESSION: Moderate right pleural effusion. Dictated by: Bne Everett RRA Interpreted: Chula Fortune MD on 09/22/2016 at 14:07 Assessment & Plan 61-year-old female with extremely complicated course who presented to the emergency department with severe anemia of 6.5 topically dropping to 5.8 with no obvious source of bleeding, as well as severe nutrient deficiency and lactic acidosis. Acute hypoxic respiratory failure; present admission; ongoing -Increased oxygen requirements starting on 09/21 which have since stabilized but not improved. ABG on 09/23 showed: ph 7.543, Co2 31, Po2 56.9, HCO3 27. -Ct shows ground glass opacities bilaterally -Pulm consult and appreciate Dr. Bullock's input -Pt now on 50L High flow and satting low 90's Hyperammonaemia encephalopathy, not present on admission, ongoing: -Ammonia questionably secondary to possible portal shunting due to previous portal, superior mesenteric, and splenic vein thrombosis that has improved since previous CT scan -Head CT NEGATIVE on 09/23. -Morphine 2-4 mg IV q2h for pain -Rifaxmin.and lactulose -Continues on Lovenox. -Nephrology consulted on 09/25; recommended D5W Right Pleural effusion; present admission; stable -Etiology unclear at this time; no known recent history of pneumonia; does have hepatic abscesses -Ultrasound on 09/16: Small right pleural effusion. -CT OF THE CHEST on 09/24/16 REVEALS LARGE R PLEURAL EFFUSION AND PNEUMONIA VS ATELECTASIS Anion gap metabolic alkalosis, not present on admission, ongoing: -AG 21. Possibly secondary to contraction alkalosis. -Stopped Lasix. -Neprhology to consult on 09/25. -D5W Hypertension; ongoing -Patient's blood pressures are routinely above 150 -Lisinopril 20mg daily. -Changed metoprolol to carvedilol -Labetalol 20mg IV for SBP>180 -Continue D5W Persistently elevated troponins, present on admission: -Troponins have now stabilized and are trending down. Hypokalemia, not present on admission, ongoing: -On 09/23 potassium 3.2 -Replace with 40 meq IV -Repeat potassium in am. Anasarca secondary to protein deficiency/malnutrition; present on admission; ongoing -Patient presented with edema up to her sacrum with sparing of the abdomen; albumin of 1.3 on admission. No DVT on U/S. -She is status post PRBC's. -Albumin and Lasix have been stopped as there is a possible contraction alkalosis. -Edema significantly improved Subacute liver abscesses; present on admission; resolved -Patient had hepatic abscesses following MRSA bacteremia. -ID seeing patient: continue daptomycin and ertapenem. Micafungin per ID. -Procalcitonin down trending.. -Fungal cultures pending. -Continue IV antibiotics per ID. Acute blood loss anemia with macrocytosis and a mild elevated troponin; present admission; stable -Unknown source at this time with a questionable GI bleed; however, patient off Lovenox for 3 days at time of admission. -Reticulocyte count was 7.8 indicating that she is responding to this anemia, ruling out bone marrow suppression -Hemoccult 3 negative -Continue to monitor with CBC and transfuse as necessary. Left renal mass with reported capsule invasion; present on admission; stable -Diagnosed at [facility], [place], however, unable to find biopsy results -Patient also had numerous thromboses and was placed on Lovenox, likely due to this mass -US at our facility showed: Solid left renal mass suspicious for underlying neoplasm. -Consulted urology and heme; appreciate their recommendations -CT ABD DEMONSTRATES INVASION OF THE LEFT RENAL VEIN Anion gap acidosis with elevated lactate; present admission; resolved: -Anion gap of 22 on admission with lactic acid of 4; patient also has a RTA. -Following transfusions will assess fluid balance -Recheck tomorrow Hypomagnesemia; present admission; resolved: -Continue to replace mag as needed. Diabetes type II; present admission; resolved -Patient does not appear to be on any medications outpatient -A1c 5.5 -Added humalog low dose correctional. Chronic Severe protein-calorie Malnutrition; present admission; stable -Patient has been severely ill for 9 months at one point was on TPN -BMI > 16, however patient with anasarca; obvious underlying severe nutritional deficiency -Dietitian consult requested -Continue albumin infusion -TPN started 09/25. Healing abdominal wound from colectomy; present on admission; stable -Wound secondary from colectomy in March 2016 currently healing -Wound consult ordered Disposition: Care ongoing; prognosis grim. If no response in 1-2 days will discuss with about moving to comfort care and withdrawing high flow Pain Evaluation: Adequate Pain Control VTE Mechanical Devices: Anti-Embolic stockings Resuscitation Status: DNR/DNI:Do Not Resuscitate/Intubate Attending Statement The patient was seen and examined together with Dr. Walden on 09/26/16 and I have added additional information to the note above. Jude Walden DO Sep 26, 2016 11:28 Mariya Mock Sep 26, 2016 17:22
[2016-09-26] MEDS ORDERED: HYDROmorphone 0.5 mg/0.5 mL iSecure Syringe ONE (12:49)
--- NOTE | 2016-09-26 13:35 | PCM.PNNEPH ---
Subjective Date of Service Sep 26, 2016 Subjective Patient is doing about the same. Unresponsive to deep pain stimuli. Na 148. Ammonia level 179. Exam Vital Signs Vital Sign - Last Date Time Temp Pulse Resp B/P Pulse Ox O2 Delivery O2 Flow Rate FiO2 09/26/16 11:35 36.8 91 24 160/102 89 HFO2NC 09/26/16 08:10 70 09/26/16 07:30 50 Intake and Output 09/25/16 09/25/16 09/26/16 Cumulative From/Thru 15:00 23:00 07:00 09/16/16 07:16 - 09/26/16 06:50 Intake Total 1942 ml 1579 ml 83289 ml Output Total 650 ml 1025 ml 78849 ml Balance 1292 ml 554 ml -8063 ml Intake Oral 0 ml 0 ml 8265 ml IV Total 1942 ml 616 ml 06856 ml TPN/PPN 463 ml 463 ml Packed Cells 1145 ml Tube Irrigant 500 ml 500 ml Output Urine Total 200 ml 250 ml 58796 ml Stool Total 450 ml 775 ml 4575 ml Gastric Drainage Total 1010 ml Estimated Blood Loss 400 ml # Bowel Movements 0 Exam General appearance: Obtunded. Unresponsive to painful stimuli. HEENT: No pallor. No jaundice. Dry mucous membranes. Left IJ triple-lumen in place. Heart: Regular rhythm. Normal S1, S2. No murmurs, rubs or gallops. Lungs: secretion sound noted. No wheezing. No rhonchi. Abdomen: Soft. Colostomy noted. Surgical incision at the midline positive for greenish draining. Active bowel sounds. Extremities: Trace edema on the sacral area. No rash. No excoriations. Lab and Diagnostics Result Diagram: 09/26/16 0451 09/26/16 0451 X-Rays, CTs and MRIs Chest x-ray IMPRESSION: 1. Continued small right-sided pleural effusion and mild atelectasis. Superimposed pneumonia is difficult to exclude. 2. Unchanged right-sided PICC line catheter. Dictated by: Brendan Marley M.D. on 09/16/2016 at 8:09 PROCEDURE: US ABDOMEN IMPRESSION: 1. Increased hepatic echogenicity noted likely related to fatty infiltration of the liver but other sources of hepatocellular disease cannot be excluded. Recommend clinical correlation. 2. Solid left renal mass suspicious for underlying neoplasm. Recommend renal protocol CT for further assessment. 3. Small right pleural effusion. 4. Gallbladder sludge with mild thickened gallbladder wall. Developing cholecystitis cannot be excluded. Correlate clinically. Approved by: Rody Welch MD, PhD on 09/16/2016 at 21:49 PROCEDURE: US VENOUS ARM DUPLEX, BILATERAL IMPRESSION: Occlusive thrombus present within the right and left upper extremities. Marciano Walden telephoned with the results by the animal tech at 1624 hrs. 09/16/2016. Approved by: Rody Welch MD, PhD on 09/16/2016 at 16:46 PROCEDURE: US VENOUS LEG DUPLEX BILATERAL IMPRESSION: No DVT found bilaterally. Approved by: Bryant Ramsey M.D. on 09/16/2016 at 17:18 Chest xray 09/21/2016: IMPRESSION: 1. Persistent small pleural effusions, bibasilar consolidation or atelectasis, and groundglass opacities consistent with pulmonary edema or pneumonia. Dictated by: Jb Enriquez M.D. on 09/21/2016 at 9:22 CT Chest/Abd/Pelvis 1. Moderate to large right-sided pleural effusion. Small left-sided pleural effusion. 2. Cardiomegaly. 3. Probable pulmonary edema. 4. Hepatic microabscesses identified on prior CT scan obtained 09/03/16 have resolved. 5. Multiple peripancreatic fluid collections identified the prior CT scan have almost completely resolved. A single, approximately 1.3 cm maximum diameter fluid collection is noted adjacent to the head of the pancreas which is suspicious for residual peripancreatic abscess. 6. Moderate amount of ascites. 7. Prominent gallbladder and gallbladder wall thickening which could be due to adjacent hepatic disease or cholecystitis. Please correlate with clinical data. 8. Dense right gluteal musculature multilobular mass suspicious for intramuscular hematoma. 9. Anasarca Dictated by: Rody Welch MD, PhD on 09/24/2016 at 15:32 12-lead ECG EKG is low-voltage, rate in the 80s, QTC is 665 Cardiac Echo Impressions Echocardiogram Report Interpretation Summary The left ventricle is normal in size. Left ventricular systolic function is normal without focal wall motion abnormalities. The ejection fraction is estimated to be 65-70%. The right ventricle is normal in size and function. The right ventricular systolic pressure is estimated at 39 mmHg assuming a right atrial pressure of 8 mm Hg. Both atria are normal in size. There is moderate tricuspid regurgitation. There is no other significant valvular heart disease. The aortic root is normal size. There are moderate-sized bilateral pleural effusions noted. Reading Physician:PM Additional Diagnostics Pleural ultrasound on 09/22/2014: IMPRESSION: Moderate right pleural effusion. Dictated by: Ben Everett RRA Interpreted: Chula Fortune MD on 09/22/2016 at 14:07 Plan Impression IMPRESSIONS: 1. Hypernatremia. improving. 2. Hypokalemia secondary to diuretic-induced. 3. Metabolic encephalopathy likely due to hepatic encephalopathy. 4. Severe protein calorie malnutrition. 5. Severe deconditioning. 6. Recent history of intrahepatic and pancreatic abscesses. 7. Metabolic alkalosis. 8. Pleural effusion. 9. Left renal mass, suspected malignancy. 10. Multiple thrombosis. 11. Suspected chronic liver disease related to ETOH. PLANS: 1. d/c D5w 2. Continu free water flushes via NG tube. 3. Continue TPN to improve the nutrition. 4. Very poor prognosis, consider transition to comfort measures. Dea Hinojosa MD Sep 26, 2016 13:35
--- NOTE | 2016-09-26 13:57 | NUR ---
Social Work: Continued Discharge Planning D: Pt discussed in am rounds. Pt is on day 10 of stay. Clinically, patient is not doing well with poor prognosis. MD team anticipates that patient will likely not survive hospitalization. Pt is currently on high flow 02. MD team will continue to work on patients medical care and will be meeting with the spouse in the next 1-2 days to discuss transitioning the patient to comfort care and withdrawing high flow. A: Pt who lives in a 5th wheel with spouse. P: Anticipate pt will likely not survive hospitalization; PASSENGER SERVICE MANAGER to continue to follow pt's clinical course. HERMAN Reyes
--- NOTE | 2016-09-26 14:09 | NUR ---
Mentation/breathing/oxygenation Patient appeared to be more restless and with increased moaning and grunting this afternoon and late morning. Patient was not following commands. Occasional spontaneous eye opening but not to commands- consulted with MD -patient was medicated with morphine 2mg IV with symptoms improving for a short time when patient was able to relax but relativity quickly began to moan again. Consulted with MD -Dilaudid IV 0.5mg was ordered and given to the patient again only with some improvement of symptoms- continue assessment. Oxygen saturation 87-92% on 55L and 90% HFO2 NC. Patient had weak and slightly congested cough with audible rattling at the back of her through. Patient had irregular breathing pattern with periods of apnea 15-30seconds followed by rapid and almost gasping sequence of 10-14 breaths- frequent oral suction/care- MD made aware- no new orders were received at the time.
[2016-09-26] MEDS ORDERED: Insulin LISPRO 300 Unit/3 mL Inj SUBQ SCH (14:30)
[2016-09-26] MEDS ORDERED: HYDROmorphone 0.5 mg/0.5 mL iSecure Syringe IVPUSH SCH (14:30)
--- NOTE | 2016-09-26 16:12 | NUR ---
Social Work: Note Pt has . Social work consult requested by patient's spouse to discuss burial and cremation options. ELECTRIC RAZOR ASSEMBLER met with the patient's spouse at bedside. He states that they do not not have the financial means to pay for the patient's burial and would like her to be cremated. He is requesting assistance determining how much cremation would cost. Pt provided with a list of local homes and requested he pick one that he would like ELECTRIC [employer]ZOR ASSEMBLER to contact. Pt requested info from [facility] [facility] ([phone])- ELECTRIC RAZOR ASSEMBLER made contact and their charge is $696.92 for cremation. ELECTRIC RAZOR ASSEMBLER informed the patient's spouse of this. He would like the patient's body to be sent to this home. He was provided with their contact information and will call them tomorrow to determine steps moving forward. s/o experiencing a range of emotions including tears, and grief while also sharing happy memories he had with the patient. ELECTRIC RAZOR ASSEMBLER offered grief and loss support group resources along with supportive space for spouse to grieve. Spouse expresses appreciation of [facility] staff. Spouse left with all of patient's belongings and declined ELECTRIC [employer]ZOR ASSEMBLER offer to call family to arrange for transport/support.
--- NOTE | 2016-09-26 17:29 | PCM.DC.MEX ---
Discharge Summary Date of Service Sep 26, 2016 Dates of Hospitalization Date of Hospital Admission Sep 16, 2016 at 10:52 Date of Expiration: Sep 26, 2016 Time of Expiration: 15:32 Providers: Admitting Physician: Mariya Mock DO Primary Care Physician: Jude Walden DO Attending Physician: Mariya Mock DO Diagnosis at Time of Acute respiratory failure secondary to end organ failure Additional Diagnosis Anasarca secondary to protein deficiency from malnourishment Left renal mass Subcutaneous liver abscesses Diabetes Hypertension Consultations Nephrology, infectious disease, critical care Procedures XRay, CTs & MRIs Chest x-ray IMPRESSION: 1. Continued small right-sided pleural effusion and mild atelectasis. Superimposed pneumonia is difficult to exclude. 2. Unchanged right-sided PICC line catheter. Dictated by: Brendan Marley M.D. on 09/16/2016 at 8:09 PROCEDURE: US ABDOMEN IMPRESSION: 1. Increased hepatic echogenicity noted likely related to fatty infiltration of the liver but other sources of hepatocellular disease cannot be excluded. Recommend clinical correlation. 2. Solid left renal mass suspicious for underlying neoplasm. Recommend renal protocol CT for further assessment. 3. Small right pleural effusion. 4. Gallbladder sludge with mild thickened gallbladder wall. Developing cholecystitis cannot be excluded. Correlate clinically. Approved by: Rody Welch MD, PhD on 09/16/2016 at 21:49 PROCEDURE: US VENOUS ARM DUPLEX, BILATERAL IMPRESSION: Occlusive thrombus present within the right and left upper extremities. Marciano Walden telephoned with the results by the artist agent at 1624 hrs. 09/16/2016. Approved by: Rody Welch MD, PhD on 09/16/2016 at 16:46 PROCEDURE: US VENOUS LEG DUPLEX BILATERAL IMPRESSION: No DVT found bilaterally. Approved by: Bryant Ramsey M.D. on 09/16/2016 at 17:18 Chest xray 09/21/2016: IMPRESSION: 1. Persistent small pleural effusions, bibasilar consolidation or atelectasis, and groundglass opacities consistent with pulmonary edema or pneumonia. Dictated by: Jb Enriquez M.D. on 09/21/2016 at 9:22 CT Chest/Abd/Pelvis 1. Moderate to large right-sided pleural effusion. Small left-sided pleural effusion. 2. Cardiomegaly. 3. Probable pulmonary edema. 4. Hepatic microabscesses identified on prior CT scan obtained 09/03/16 have resolved. 5. Multiple peripancreatic fluid collections identified the prior CT scan have almost completely resolved. A single, approximately 1.3 cm maximum diameter fluid collection is noted adjacent to the head of the pancreas which is suspicious for residual peripancreatic abscess. 6. Moderate amount of ascites. 7. Prominent gallbladder and gallbladder wall thickening which could be due to adjacent hepatic disease or cholecystitis. Please correlate with clinical data. 8. Dense right gluteal musculature multilobular mass suspicious for intramuscular hematoma. 9. Anasarca Dictated by: Rody Welch MD, PhD on 09/24/2016 at 15:32 ECG 12 Lead EKG is low-voltage, rate in the 80s, QTC is 665 Cardiac Echo Impression Echocardiogram Report Interpretation Summary The left ventricle is normal in size. Left ventricular systolic function is normal without focal wall motion abnormalities. The ejection fraction is estimated to be 65-70%. The right ventricle is normal in size and function. The right ventricular systolic pressure is estimated at 39 mmHg assuming a right atrial pressure of 8 mm Hg. Both atria are normal in size. There is moderate tricuspid regurgitation. There is no other significant valvular heart disease. The aortic root is normal size. There are moderate-sized bilateral pleural effusions noted. Reading Physician:MEGHAN Other Diagnostics Pleural ultrasound on 09/22/2014: IMPRESSION: Moderate right pleural effusion. Dictated by: Ben Everett [facility] Interpreted: Chula Fortune MD on 09/22/2016 at 14:07 Brief History 61-year-old female who was recently discharged from [facility] 2 days prior to admission presented to the emergency department due to increased swelling in her lower extremities and worsening weakness has been persistent since discharge. Patient has an extremely complicated course as she has had 2 stays at [facility]. Initially started in the fall of 2016 when the patient had a fall fractured her right hip. She had surgical repair and "rehabed myself". 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 In Nov she became constipated and uncomfortable which did not respond to lax. She states she sought medical attn but nothing was done. She was then seen with colonic rupture second obstipation likely due from pain management. Patient underwent colectomy and new ostomy and remained in the hospital for 3 weeks including a prolonged stay in the ICU on a ventilator. At that time she required TPN and developed acute kidney injury. In August the patient again presented to [place] with increased abdominal pain and vomiting was found to have an MRSA hx with sepsis. She underwent complete workup including SANDI which was negative for valvular involvement, however it was noted that she has intrahepatic abscess is likely due to the MRSA as well as questionable pancreatic abscesses. 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 Hospital Course 61-year-old female with extremely complicated course who presented to the emergency department with severe anemia of 6.5 topically dropping to 5.8 with no obvious source of bleeding, as well as severe nutrient deficiency and lactic acidosis. The patient's anasarca had started to improve status post 3 units transfusion of packed red blood cells. The patient was improving and seems to be clinically preparing for possible discharge. However on September 21 the patient started having altered mental status and started to decompensate. A CT of the head was done to look for further insult to the brain causing an encephalopathy however A came back negative for any acute intra-cranial processes. CT of the abdomen was also performed looking for other possible thromboses or worsening of her liver abscess however everything seemed to be improving except for the renal cell mass which has not yet been worked up and was suspicious for neoplasm. The renal mass was shown to be growing from the previous CT scan which was taken. The patient's electrolytes and abnormal lab values were attempted to be corrected and nephrology and pulmonary critical care were also consulted however the patient continued to decompensate rapidly. After multiple discussions with nephrology (Dr. Dolan) and bone critical care ( Dr. Bullock) it was agreed that the patient's prognosis was very slim. The patient later in the day started to decompensate rapidly and it was decided by the family that it would be best to change the patient over to comfort care. The was present at the time the oxygen was discontinued and the patient shortly afterwards. The patient's has a friend at corners office and the sales operations manager's office was contacted and stated that they would not be doing an autopsy. Social work was sent in to help the with any burial planning. Counseling time was spent with the through out the day by the primary team in order to explain any further questions that he may have in regard to the patient's condition and cause of . Acute hypoxic respiratory failure; present admission; ongoing -Increased oxygen requirements starting on 09/21 which have since stabilized but not improved. ABG on 09/23 showed: ph 7.543, Co2 31, Po2 56.9, HCO3 27. -Ct shows ground glass opacities bilaterally -Pulm consult and appreciate Dr. Bullock's input -Pt now on 50L High flow and satting low 90's Hyperammonaemia encephalopathy, not present on admission, ongoing: -Ammonia questionably secondary to possible portal shunting due to previous portal, superior mesenteric, and splenic vein thrombosis that has improved since previous CT scan -Head CT NEGATIVE on 09/23. -Morphine 2-4 mg IV q2h for pain -Rifaxmin.and lactulose -Continues on Lovenox. -Nephrology consulted on 09/25; recommended D5W Right Pleural effusion; present admission; stable -Etiology unclear at this time; no known recent history of pneumonia; does have hepatic abscesses -Ultrasound on 09/16: Small right pleural effusion. -CT OF THE CHEST on 09/24/16 REVEALS LARGE R PLEURAL EFFUSION AND PNEUMONIA VS ATELECTASIS Anion gap metabolic alkalosis, not present on admission, ongoing: -AG 21. Possibly secondary to contraction alkalosis. -Stopped Lasix. -Neprhology to consult on 09/25. -D5W Hypertension; ongoing -Patient's blood pressures are routinely above 150 -Lisinopril 20mg daily. -Changed metoprolol to carvedilol -Labetalol 20mg IV for SBP>180 -Continue D5W Persistently elevated troponins, present on admission: -Troponins have now stabilized and are trending down. Hypokalemia, not present on admission, ongoing: -On 09/23 potassium 3.2 -Replace with 40 meq IV -Repeat potassium in am. Anasarca secondary to protein deficiency/malnutrition; present on admission; ongoing -Patient presented with edema up to her sacrum with sparing of the abdomen; albumin of 1.3 on admission. No DVT on U/S. -She is status post PRBC's. -Albumin and Lasix have been stopped as there is a possible contraction alkalosis. -Edema significantly improved Subacute liver abscesses; present on admission; resolved -Patient had hepatic abscesses following MRSA bacteremia. -ID seeing patient: continue daptomycin and ertapenem. Micafungin per ID. -Procalcitonin down trending.. -Fungal cultures pending. -Continue IV antibiotics per ID. Acute blood loss anemia with macrocytosis and a mild elevated troponin; present admission; stable -Unknown source at this time with a questionable GI bleed; however, patient off Lovenox for 3 days at time of admission. -Reticulocyte count was 7.8 indicating that she is responding to this anemia, ruling out bone marrow suppression -Hemoccult 3 negative -Continue to monitor with CBC and transfuse as necessary. Left renal mass with reported capsule invasion; present on admission; stable -Diagnosed at [facility], however, unable to find biopsy results -Patient also had numerous thromboses and was placed on Lovenox, likely due to this mass -US at our facility showed: Solid left renal mass suspicious for underlying neoplasm. -Consulted urology and heme; appreciate their recommendations -CT ABD DEMONSTRATES INVASION OF THE LEFT RENAL VEIN Anion gap acidosis with elevated lactate; present admission; resolved: -Anion gap of 22 on admission with lactic acid of 4; patient also has a RTA. -Following transfusions will assess fluid balance -Recheck tomorrow Hypomagnesemia; present admission; resolved: -Continue to replace mag as needed. Diabetes type II; present admission; resolved -Patient does not appear to be on any medications outpatient -A1c 5.5 -Added humalog low dose correctional. Chronic Severe protein-calorie Malnutrition; present admission; stable -Patient has been severely ill for 9 months at one point was on TPN -BMI > 16, however patient with anasarca; obvious underlying severe nutritional deficiency -Dietitian consult requested -Continue albumin infusion -TPN started 09/25. Healing abdominal wound from colectomy; present on admission; stable -Wound secondary from colectomy in March 2016 currently healing -Wound consult ordered Disposition: Care ongoing; prognosis grim. If no response in 1-2 days will discuss with about moving to comfort care and withdrawing high flow Exam Test 09/16/16 07:50 09/16/16 09:25 09/16/16 11:55 09/16/16 21:25 Hold Purple Top Tube Received (Received) Hemoglobin A1c 5.5% (4.8-5.6) Iron Level 49ug/dL (35-150) Total Iron Binding Capacity 66ug/dL (250-450) Percent Iron Saturation 74%sat (15-50) Unsaturated Iron Binding 17.2ug/dL Pro-B-Type Natriuretic Peptide 4332pg/mL (0-287) Hold [place] Top Tube Received (Received) Hold Barrett Top Tube Received (Received) Digoxin Level 0.3nG/mL (0.9-2.0) Vitamin B12 Level 1490pg/mL (211-946) Folate 9.0ng/mL (>3.0) Hold Red Top Tube Received (Received) Reticulocyte Count,Calculated 7.8% (0.6-2.6) Hematology Comments Total Creatine Kinase 53U/L (21-215) Hepatitis B Surface Antigen Negative (Negative) Hepatitis C Antibody <0.1s/co ratio (0.0-0.9) HIV (1&2) Ag and Ab, 4th Generation Non reactive (Non Reactive) HIV (1&2) Antibody Rapid Negative (Negative) Test 09/17/16 03:15 09/17/16 03:25 09/17/16 09:10 09/18/16 18:30 Haptoglobin 102mg/dL (34-200) Lupus Anticoagulant APTT 62.4sec (0.0-43.6) Lupus Anticoag Mix PTT Pat/Norm 1:1 55.4sec (0.0-40.6) Dilute Cristian Viper Venom (Lupus) 60.3sec (0.0-47.0) DRVVT Mixing Study 45.7sec (0.0-47.0) Hexagonal Phase Phospholipid 20sec (0-11) Lupus Anticoagulant Interpretation Comment: (.) Anti-Thrombin III Antigen 50% (72-124) Flmk-tqda-8-Glycoprotein I IgG Ab <9 (0-20) Zhgk-zpjm-2-Glycoprotein I IgA Ab <9 (0-25) Jxry-cwvl-0-Glycoprotein I IgM Ab <9 (0-32) Anti-Cardiolipin IgG Antibody < 9GPL U/mL (0-14) Anti-Cardiolipin IgA Antibody < 9APL U/mL (0-11) Anti-Cardiolipin IgM Antibody 9MPL U/mL (0-12) Ferritin 498ng/mL (13-150) Lactate Dehydrogenase 86U/L (100-190) Thyroid Stimulating Hormone (TSH) 2.980uIU/mL (0.450-4.500) Ionized Calcium (Calculated) 3.53mg/dL (3.5-5.2) Urine Random Total Protein 61mg/dL (0-15) Urine Total Volume 2700mL Urine Creatinine 10mg/dL (15-278) Urine Creatinine 24 Hour 270mg/24Hr (800-1800) Urine Protein 24 Hr Calculated 1647mg/24H (30-150) Test 09/19/16 04:30 09/22/16 06:50 09/23/16 05:00 09/23/16 06:40 Prothrombin Time 18.1sec (8.1-12.5) Prothromb Time International Ratio 1.67ratio Fibrinogen 156mg/dL (157-380) Activated Partial Thromboplast Time 56.0sec (22.8-33.0) Troponin T 0.187ug/L (0.0-0.011) Hold Blue Top Tube Received (Received) Test 09/23/16 10:35 09/23/16 11:57 09/23/16 12:00 09/24/16 05:15 Prealbumin 8mg/dL (20-40) Ketones Negative (Negative) Urine Random Sodium 125mEq/L Urine Random Chloride 142mEq/L Direct Bilirubin 0.2mg/dL (0.0-0.3) Lipase 8U/L (13-60) Test 09/24/16 09:31 09/25/16 04:50 09/26/16 04:51 Urine Color Yellow (YELLOW) Urine Appearance Hazy (CLEAR,HAZY) Urine pH 7.0 (5.0-8.0) Urine Specific Nelson 1.020 (1.003-1.035) Urine Protein 300mg/dL (NEG,TRACE) Urine Glucose (UA) Negativemg/dL (NEGATIVE) Urine Ketones Tracemg/dL (NEGATIVE) Urine Occult Blood Moderate (NEGATIVE) Urine Nitrite Negative (NEGATIVE) Urine Bilirubin Negative (NEGATIVE) Urine Urobilinogen Normalmg/dL (NORMAL) Urine Leukocyte Esterase Negative (NEGATIVE) Urine RBC 0-2/hpf (0-2) Urine WBC 6-10/hpf (0-5) Urine Epithelial Cells Occasional/hpf (NONE-MOD) Urine Crystals None seen (NONE SEEN) Urine Bacteria None/hpf (NONE-FEW) Urine Hyaline Casts None/lpf (NONE) Urine Granular Casts None seen (NONE SEEN) Urine Waxy Casts None seen (NONE SEEN) Urine Red Blood Cell Casts None seen (NONE SEEN) Urine White Blood Cell Casts None seen (NONE SEEN) Urine Mucus Present (None Seen) Urine Trichomonas None seen (NONE SEEN) Urine Yeast Many (NONE SEEN) Urinalysis Comment None Urine Culture Reflexed Indicated Lactic Acid Level 1.8mmol/L (0.4-2.0) Procalcitonin 1.71ng/mL (0.00-0.08) White Blood Count 12.3th/mm3 (3.8-10.1) Red Blood Count 3.15mil/mm3 (3.90-5.20) Hemoglobin 9.8g/dL (12.0-15.6) Hematocrit 32.1% (35.0-46.0) Mean Corpuscular Volume 101.9fL (81-100) Mean Corpuscular Hemoglobin 31.1pg (27.0-35.0) Mean Corpuscular Hemoglobin Concent 30.5% (32.0-37.0) Red Cell Distribution Width 21.1% (12.3-15.4) Platelet Count 404bil/L (150-400) Neutrophils (%) (Auto) 69.6% (40-74) Lymphocytes (%) (Auto) 19.3% (14-46) Monocytes (%) (Auto) 5.1% (4-12) Eosinophils (%) (Auto) 0.2% (0-5) Basophils (%) (Auto) 0.4% (0-3) Sodium Level 148mEq/L (134-144) Potassium Level 4.2mEq/L (3.5-5.2) Chloride Level 104mEq/L (97-108) Carbon Dioxide Level 27mmol/L (18-29) Blood Urea Nitrogen 24mg/dL (8-27) Creatinine 0.79mg/dL (0.57-1.00) Estimat Glomerular Filtration Rate 106mL/min (>59) Glucose Level 223mg/dL (60-99) Calcium Level 8.6mg/dL (8.5-10.1) Phosphorus Level 3.3mg/dL (2.5-4.9) Magnesium Level 2.3mg/dL (1.6-2.6) Total Bilirubin 0.6mg/dL (0.0-1.2) Aspartate Amino Transf (AST/SGOT) 101U/L (0-50) Alanine Aminotransferase (ALT/SGPT) 66U/L (0-32) Alkaline Phosphatase 134U/L (25-165) Ammonia 179ug/dL (18-53) Total Protein 5.8g/dL (6.4-8.4) Albumin 3.7g/dL (3.4-5.0) Time spent 60 minutes Mariya Mock DO Sep 26, 2016 17:29
--- NOTE | 2016-09-26 19:29 | NUR ---
Discharge Gradual but progressive respiratory decline with agonal respiration no resuscitation status - MD aware. Family- patients was asked to come to the hospital. t arrived around 1445 today. MD was able to consult with patients and patient progressed to comfort care status. Oxygen - HFO2NC was discontinued. Patient was experiencing periodic episodes of agitation Ativan 0.5mg IV was given X1. Air hunger and general discomfort were treated with Dilaudid 0.5mg IV and morphine 2mg IV as requested/ordered by MD. Patient at 1532 today- MD was made aware. corrections caseworker was asked to assist patients with the choice of a home. chose was [facility] steam distribution supervisor was notified about the home choice. As per hospital criteria patient was not a coroners case. However patents call his friend at the coroners office to be involved with patients case. Sammy from coroners office called and per her statement no autopsy will be required. When asked if lined and other body tubes can be removed her reply was to remove all the tubes/lines as per our protocol and transfer the body to hospital [facility] steam distribution supervisor was made aware. Organ /tissue donation services were called prior to patients and again within 15 minutes after patients to inform them of cardiac time of . Patient was a possible candidate for cornea and tissue donations. Patients both eyes were flushed/irrigated with NS and tapped to remain closed as instructed by tissue/organ donation rep.
== END 2016-09-26 15:39 | disposition expired | DRG 461 ==
LOC: SED 07:14 → PCC 10:52 → CCU 19:43 → PCC 09-17 14:30
PROVIDERS: ADMIT Neuromusculoskeletal Medicine & OMM; ATTEND Neuromusculoskeletal Medicine & OMM
PROC: 30233N1 Transfusion of Nonautologous Red Blood Cells into Peripheral Vein, Percutaneous Approach (ICD-10-PCS; principal; 2016-09-16)
PROC: 30233N1 Transfusion of Nonautologous Red Blood Cells into Peripheral Vein, Percutaneous Approach (ICD-10-PCS; 2016-09-17)
PROC: 3E043GC Introduction of Other Therapeutic Substance into Central Vein, Percutaneous Approach (ICD-10-PCS; 2016-09-19)
PROC: 4A033R1 Measurement of Arterial Saturation, Peripheral, Percutaneous Approach (ICD-10-PCS; 2016-09-21)
PROC: 3E043GC Introduction of Other Therapeutic Substance into Central Vein, Percutaneous Approach (ICD-10-PCS; 2016-09-22)
DX: C64.2 Malignant neoplasm of left kidney, except renal pelvis (principal); J96.01 Acute respiratory failure with hypoxia; I81 Portal vein thrombosis; K75.0 Abscess of liver; E43 Unspecified severe protein-calorie malnutrition; G93.41 Metabolic encephalopathy; J90 Pleural effusion, not elsewhere classified; K85.90 Acute pancreatitis without necrosis or infection, unspecified; D62 Acute posthemorrhagic anemia; E87.2 Acidosis; I82.621 Acute embolism and thrombosis of deep veins of right upper extremity; I82.612 Acute embolism and thrombosis of superficial veins of left upper extremity; E72.20 Disorder of urea cycle metabolism, unspecified; E88.09 Other disorders of plasma-protein metabolism, not elsewhere classified; N28.89 Other specified disorders of kidney and ureter; Z99.81 Dependence on supplemental oxygen; I10 Essential (primary) hypertension; E11.9 Type 2 diabetes mellitus without complications; Z93.3 Colostomy status; Z87.891 Personal history of nicotine dependence; Z68.22 Body mass index [BMI] 22.0-22.9, adult; E87.6 Hypokalemia; Z51.5 Encounter for palliative care